=== PATIENT | female | born 1965 | race Caucasian/White ===

== ENCOUNTER 2020-09-11 09:29 | Outpatient (REF) | payer OTHER, SELFPAY ==
[2020-09-11 11:44] LABS: Estimated Average Glucose 220 mg/dL; Hemoglobin A1c % 9.3 %
== END 2020-09-11 09:30 | disposition home or self-care (01) ==
LOC: HO.MANLR 09:29
PROVIDERS: PCP Internal Medicine; Visit Provider Internal Medicine
DX: E11.9 Type 2 diabetes mellitus without complications (principal)
CPT/HCPCS: 36415; 83036

== ENCOUNTER 2020-11-17 08:18 | Outpatient (REF) | payer OTHER, SELFPAY ==
[2020-11-17 12:36] LABS: Estimated Average Glucose 166 mg/dL; Hemoglobin A1c % 7.4 %
== END 2020-11-17 08:19 | disposition home or self-care (01) ==
LOC: HO.MANLDS 08:18
PROVIDERS: PCP Internal Medicine; Visit Provider Internal Medicine
DX: E11.9 Type 2 diabetes mellitus without complications (principal)
CPT/HCPCS: 36415; 83036

== ENCOUNTER 2021-02-19 17:09 | Outpatient (REF) | payer OTHER, SELFPAY ==
--- NOTE | ~2021-02-19 | XR_ITS ---
EXAMINATION: RIGHT TIBIA AND FIBULA AND RIGHT KNEE. CLINICAL INFORMATION: Injury. COMPARISON: None TECHNIQUE: 2 views right tibia and fibula and 3 views right knee. FINDINGS: Right tibia and fibula: There is an old healed mid fibular fracture. A solitary screw stabilizing a healed medial malleolar fracture. No acute fracture or bony abnormality seen involving the right tibia and fibula. Right knee: The medial and lateral compartment joint space is normal. No loose bodies or bony erosive changes seen. There is mild loss of patellar femoral compartment joint space Irregular patellar articulating surface. No loose body seen. There is moderate prepatellar and infrapatellar superficial soft tissue swelling. XR/XR knee RT 3V IMPRESSION: Moderate prepatellar and infrapatellar superficial soft tissue swelling. No abnormal joint effusion seen. There is no acute fracture or dislocation.
--- NOTE | ~2021-02-19 | XR_ITS ---
EXAMINATION: RIGHT TIBIA AND FIBULA AND RIGHT KNEE. CLINICAL INFORMATION: Injury. COMPARISON: None TECHNIQUE: 2 views right tibia and fibula and 3 views right knee. FINDINGS: Right tibia and fibula: There is an old healed mid fibular fracture. A solitary screw stabilizing a healed medial malleolar fracture. No acute fracture or bony abnormality seen involving the right tibia and fibula. Right knee: The medial and lateral compartment joint space is normal. No loose bodies or bony erosive changes seen. There is mild loss of patellar femoral compartment joint space Irregular patellar articulating surface. No loose body seen. There is moderate prepatellar and infrapatellar superficial soft tissue swelling. XR/XR tibia fibula RT 2V IMPRESSION: Moderate prepatellar and infrapatellar superficial soft tissue swelling. No abnormal joint effusion seen. There is no acute fracture or dislocation.
== END 2021-02-19 17:10 | disposition home or self-care (01) ==
LOC: HO.XRAY 17:09
PROVIDERS: PCP Internal Medicine; Visit Provider Physician Assistant
DX: M25.561 Pain in right knee (principal); S89.91XA Unspecified injury of right lower leg, initial encounter
CPT/HCPCS: 73562; 73590

== ENCOUNTER 2021-02-28 08:41 | Outpatient (REF) | payer OTHER, SELFPAY ==
[2021-02-28 11:31] LABS: Estimated Average Glucose 186 mg/dL; Hemoglobin A1c % 8.1 %
== END 2021-02-28 08:42 | disposition home or self-care (01) ==
LOC: HO.MANLDS 08:41
PROVIDERS: PCP Internal Medicine; Visit Provider Internal Medicine
DX: E11.9 Type 2 diabetes mellitus without complications (principal)
CPT/HCPCS: 36415; 83036

== ENCOUNTER 2021-06-20 15:53 | Outpatient (REF) | payer OTHER, SELFPAY ==
[2021-06-20 19:48] LABS: Estimated Average Glucose 186 mg/dL; Hemoglobin A1c % 8.1 %
== END 2021-06-20 15:54 | disposition home or self-care (01) ==
LOC: HO.MANLDS 15:53
PROVIDERS: PCP Internal Medicine; Visit Provider Internal Medicine
DX: E11.9 Type 2 diabetes mellitus without complications (principal)
CPT/HCPCS: 36415; 83036

== ENCOUNTER → 2021-10-08 12:14 | Outpatient (BNVA) | payer OTHER, SELFPAY | PROVIDERS: PCP Internal Medicine; Visit Provider Physician Assistant | DX: Z12.11 Encounter for screening for malignant neoplasm of colon (principal); E66.3 Overweight; Z86.010 Personal history of colon polyps; Z79.899 Other long term (current) drug therapy | CPT/HCPCS: 99202 ==

== ENCOUNTER 2021-12-24 12:26 | Day surgery (SDC) | payer OTHER, SELFPAY ==
--- NOTE | 2021-12-24 12:32 | MHC.SHP ---
Pre-Procedural Eval Section A Date of Service: 12/24/21 The patient is an INPATIENT: No The History & Physical has been completed within 30 days and I have reviewed it.: No Section B Chief Complaint: screening Details of Present Illness: Colon cancer screening, history of colon polyps Relevant Family History (Specify if Yes): No Relevant Social History: None Present Medications: see Short Stay Collaborative assessment Medical History: Significant History (Diabetes mellitus, hypertension, depression, HX of PCOS) History of Previous Operations: Relevant previous surgery/procedure and date(s) (History of ankle surgery Hx of colonoscopy, Hx of nephrolithotomy with removal of calculi) Allergies: Allergies Allergy/AdvReac Type Severity Reaction Status Date / Time No Known Allergies Allergy Verified 12/18/21 14:10 [No Known Allergies*] Review of Systems Sugical H&P ROS: Negative: Constitution, Cardiovascular, Respiratory and Gastrointestinal Exam Surgical H&P Exam: Normal: Heart, Normal: Lungs, Normal: Extremities and Normal: Abdomen Plan Diagnosis/Plan: Unchanged I have reviewed the history and physical and performed a pertinent physical examination on my patient. No changes have occurred unless specified.
--- NOTE | 2021-12-24 12:35 | W.PM.OPN ---
Operative Note Operative Note Date of Service: 12/24/21 Narrative: Pre-op diagnosis: Colon cancer screening, history of colon polyps Post-op diagnosis:?other (Diverticulosis, hemorrhoids) Procedure: COLONOSCOPY TILL CECUM WITH BIOPSIES Consent: Indications for the procedure and potential complications of bleeding, perforation, and missed diagnosis were discussed with the patient and informed consent was obtained. Pt elected to have the procedure without anesthesia or conscious sedation. Instrument: Olympus PCF H 190 L variable stiffness pediatric colonoscope Monitoring: Vital signs and clinical assessment, intermittent blood pressure monitoring, continuous EKG monitoring, Pulse oximetry and Carbon Dioxide monitoring were done throughout the procedure. Colon withdrawl time was 26 minutes. Procedure: The patient was placed in the left lateral decubitis position. After a digital rectal examination of the ano-rectum, the video colonoscope was inserted into the rectum and advanced through the colon to the cecum. The colonoscope was slowly withdrawn in a retrograde panoramic fashion and the colon mucosa was carefully examined including a retroflexed view of the rectum. Findings and interventions are described below. Procedure Difficulty:? LLQ pressure applied to intubate the cecum Findings: Terminal Ileum: Not evaluated Cecum:? Partially evaluated due to suboptimal prep Ascending Colon:? Partially evaluated due to suboptimal prep Transverse Colon:? Normal Descending Colon:? Moderate diverticulosis Sigmoid Colon:? Moderate diverticulosis Rectum:? Normal Ano-rectum:? Small internal hemorrhoids Colon preparation:? Good after copious irrigation and fair to poor in the cecum and right colon due to undigested vegetable matter. Impression and Post Procedure Diagnosis: Colonoscopy Findings: No polyps were detected. Random biopsies were obtained from the left colon to check for microscopic colitis. Moderate diverticulosis seen in the left colon Small hemorrhoids on retroflexed exam. Plan: Await pathology results Patient has an appointment on 01/07/22 in the GI Clinic with BOYD Myrick. Repeat Colonoscopy interval based on path results - in 3 years due to suboptimal prep in the right colon and hx of colon polyps on previous colonoscopy at [facility] [place]. For future colonoscopies - advise 2 day prep or two Bisacodyl tablets daily starting 5 days prior to her colonoscopy appt Above findings were reviewed with the patient and diverticulosis handouts was given in the discharge area Surgeon: Analilia Ang MD Anesthesia:?none (pt elected to have the procedure performed without MAC or conscious sedation) Was an All Around Patternmaker used for this Procedure?:?Yes All Around Patternmaker:?Chelsie Ramos Estimated blood loss (mL):?0 Pathology:?other (A. left colon bxs, R/O microscopic colitis) Condition:?stable Disposition:?PACU
[2021-12-24 12:56] VITALS: BP 140/72; PULSE 78; RESP 20; TEMP 36.8; O2SAT 96; BMI 38.9
[2021-12-24 13:13] VITALS: BP 139/71; PULSE 77; RESP 16; O2SAT 98
[2021-12-24 13:24] LABS: Glucose, Whole Blood 222 mg/dL (60-115)
[2021-12-24 13:56] VITALS: BP 164/80; PULSE 84; RESP 16; O2SAT 100
[2021-12-24 14:02] VITALS: BP 133/82; PULSE 73; RESP 16; TEMP 36.8; O2SAT 99
== END 2021-12-24 14:25 | disposition home or self-care (01) ==
PROVIDERS: PCP Internal Medicine; Visit Provider Internal Medicine Gastroenterology
PROC: 0DJD8ZZ Inspection of Lower Intestinal Tract, Via Natural or Artificial Opening Endoscopic (ICD-10-PCS; CPT 45378; principal; 2021-12-24 13:30)
DX: Z12.11 Encounter for screening for malignant neoplasm of colon (principal); Z86.010 Personal history of colon polyps; K57.30 Diverticulosis of large intestine without perforation or abscess without bleeding; K64.8 Other hemorrhoids; G47.30 Sleep apnea, unspecified; J45.909 Unspecified asthma, uncomplicated; E11.9 Type 2 diabetes mellitus without complications; Z79.4 Long term (current) use of insulin; Z79.899 Other long term (current) drug therapy; Z87.442 Personal history of urinary calculi
CPT/HCPCS: 45380; 82947; 88305

== ENCOUNTER 2022-03-04 10:51 | Outpatient (REF) | payer OTHER, SELFPAY ==
[2022-03-04 13:52] LABS: MANUAL DIFF FLAG NO
[2022-03-04 13:59] LABS: Basophils Percent Auto 0.6 % (0-2); Eosinophils Absolute Auto 0.2 X10*3/uL (0.0-0.4); Eosinophils Percent Auto 3.2 % (0-4); Hematocrit 41.3 % (37.0-47.0); Hemoglobin 13.3 g/dl (12.0-16.0); Imm Gran Abs Auto 0.02 X10*3/uL (0.00-0.03); Imm Gran Pct Auto 0.3 % (0.0-0.4); Lymphocytes Absolute Auto 1.8 X10*3/uL (1.2-4.9); Lymphocytes Percent Auto 26.6 % (20-40); Mean Corpuscular HGB Conc 32.2 g/dl (31.0-35.0); Mean Corpuscular Hemoglobin 28.7 pg (27.0-33.0); Mean Platelet Volume 10.2 fL (9.4-12.3); Monocytes Absolute Auto 0.7 X10*3/uL (0.1-1.2); Monocytes Percent Auto 10.2 % (2-11); Neutrophils Absolute Auto 4.1 x10*3/uL (2.0-8.3); Neutrophils Percent Auto 59.1 % (45-73); Platelet Count 290 X10*3/uL (160-400); Red Blood Count 4.64 X10*6/uL (4.20-5.50); Red Cell Distribution Width 12.8 % (11.0-16.0); White Blood Count 6.9 X10*3/uL (4.8-10.8)
[2022-03-04 14:13] LABS: Estimated Average Glucose 232 mg/dL; Hemoglobin A1c % 9.7 %
[2022-03-04 14:17] LABS: Alanine Aminotransferase 19 U/L (0-31); Albumin Level 4.2 g/dL (3.5-5.0); Alkaline Phosphatase 121 U/L (39-117); Anion Gap 15 (12-20); Aspartate Amino Transferase 16 U/L (5-31); Bilirubin Total 0.4 mg/dL (0.0-1.0); Blood Urea Nitrogen 14 mg/dL (9-16); Calcium 9.3 mg/dL (8.4-10.2); Carbon Dioxide 28 mmol/L (22-29); Chloride 105 mmol/L (96-108); Cholesterol 170 mg/dL; Estimated Glomerular Filt Rate > 60; Glucose Random 176 mg/dL (60-115); HDL Cholesterol 58 mg/dL; LDL Cholesterol Calculated 97 mg/dl; Potassium 4.3 mmol/L (3.3-5.1); Sodium 144 mmol/L (135-145); Total Protein 7.1 g/dL (6.5-8.0); Triglycerides 77 mg/dL
[2022-03-04 14:40] LABS: Vitamin D 25-OH Total 66.4 ng/mL (>30)
[2022-03-04 17:24] LABS: Vitamin B12 762 pg/mL (200-900)
== END 2022-03-04 10:52 | disposition home or self-care (01) ==
LOC: HO.MANLDS 10:51
PROVIDERS: Visit Provider Internal Medicine
DX: I10 Essential (primary) hypertension (principal); E11.65 Type 2 diabetes mellitus with hyperglycemia
CPT/HCPCS: 36415; 80053; 80061; 82306; 82607; 83036; 85025

== ENCOUNTER 2022-09-30 08:29 | Outpatient (REF) | payer OTHER, SELFPAY ==
[2022-09-30 11:29] LABS: Estimated Average Glucose 189 mg/dL; Hemoglobin A1c % 8.2 %
== END 2022-09-30 08:30 | disposition home or self-care (01) ==
LOC: HO.MANLDS 08:29
PROVIDERS: Visit Provider Internal Medicine
DX: E11.65 Type 2 diabetes mellitus with hyperglycemia (principal)
CPT/HCPCS: 36415; 83036

== ENCOUNTER 2023-01-06 09:18 | Outpatient (REF) | payer OTHER, SELFPAY ==
[2023-01-06 12:18] LABS: Estimated Average Glucose 226 mg/dL; Hemoglobin A1c % 9.5 %
== END 2023-01-06 09:19 | disposition home or self-care (01) ==
LOC: HO.MANLDS 09:18
PROVIDERS: Visit Provider Internal Medicine
DX: E11.65 Type 2 diabetes mellitus with hyperglycemia (principal)
CPT/HCPCS: 36415; 83036

== ENCOUNTER 2023-01-21 08:58 | Outpatient (REF) | payer OTHER, SELFPAY ==
--- NOTE | ~2023-01-21 | MM_ITS ---
EXAMINATION: MM SCREENING DIGITAL BREAST TOMOSYNTHESIS, BILATERAL CLINICAL INFORMATION: Screening. Asymptomatic. The lifetime risk of breast cancer based on the Tyrer-Cuzick Model is 10.2%. COMPARISON: Mammography: This study is compared with only mammogram dating back to August 2010. TECHNIQUE: Digital breast tomosynthesis is performed in both the craniocaudal and mediolateral oblique views along with computer-aided detection (CAD). Synthesized 2D images are generated from the tomosynthesis. FINDINGS: There are scattered areas of fibroglandular density (ACR BI-RADS breast composition Category b). There are no significant masses, abnormal calcifications, or other abnormalities. MM/MM tomosynthesis screening BI IMPRESSION: No mammographic evidence of malignancy. ASSESSMENT: BI-RADS BI-RADS 1 - Negative RECOMMENDATION: Routine annual mammography screening. 1 year F/U This examination should not preclude the clinical evaluation of a suspicious palpable abnormality. This patient's information was entered into a reminder system with a target due date for their next mammogram.
== END 2023-01-21 08:59 | disposition home or self-care (01) ==
LOC: HO.MAMMO 08:58
PROVIDERS: PCP Internal Medicine; Visit Provider Internal Medicine
DX: Z12.31 Encounter for screening mammogram for malignant neoplasm of breast (principal)
CPT/HCPCS: 77063; 77067

== ENCOUNTER → 2023-01-21 09:15 | Outpatient (BNV) | payer OTHER, SELFPAY | PROVIDERS: PCP Internal Medicine; Visit Provider Radiology Diagnostic Radiology | DX: Z12.31 Encounter for screening mammogram for malignant neoplasm of breast (principal) | CPT/HCPCS: 77063; 77067 ==

== ENCOUNTER 2023-02-11 17:07 | Emergency (ER) | payer OTHER, SELFPAY ==
--- NOTE | 2023-02-11 18:14 | ED_ITS ---
HPI - General Adult General Chief complaint: Upper Respiratory Symptoms Stated complaint: covid + home test Time Seen by Provider: 02/11/23 18:26 Source: patient and family Mode of arrival: ambulatory Limitations: no limitations History of Present Illness HPI narrative: 57 y/o with history of DM, obesity, HTN, PCOS, depression who presents to the ER for evaluation of acute onset of fever 102, SOB, N/V, weakness and headache that started today. +home COVID test at home. Vaccinated x2. Using inhaler without relief. She took tylenol with improvement in her fever. She called her PCP who told her to come to the ER for evaluation of her breathing. MD complaint: SOB, COVID + Onset (ago): hour(s) Location: chest Radiation: non-radiation Severity: moderate Relieving factors: rest Exacerbating factors: movement Associated symptoms: cough, fever/chills, headaches, loss of appetite, malaise, nausea/vomiting, shortness of breath and weakness Treatments prior to arrival: other (albuterol MDI) Related Data Home Medications Medication Instructions Recorded Confirmed amlodipine 5 mg tablet 5 mg PO DAILY 10/08/21 12/24/21 atorvastatin 40 mg tablet 40 mg PO DAILY 10/08/21 12/18/21 cholecalciferol (vitamin D3) 50 50 mcg PO DAILY 10/08/21 12/18/21 mcg (2,000 unit) capsule duloxetine 60 mg capsule,delayed 60 mg PO BID 10/08/21 12/18/21 release (Cymbalta) insulin degludec 100 unit/mL 15 unit subcut BEDTIME 10/08/21 12/24/21 subcutaneous solution (Tresiba U-100 Insulin) lisinopril 40 mg tablet 40 mg PO DAILY 10/08/21 12/24/21 metformin 750 mg tablet,extended 750 mg PO BID 10/08/21 12/24/21 release 24 hr montelukast 10 mg tablet 10 mg PO DAILY 10/08/21 12/18/21 Previous Rx's Medication Instructions Recorded benzonatate 100 mg capsule 100 mg PO TID PRN cough #30 caps 02/11/23 hydrocodone-homatropine 5 mg-1.5 5 ml PO Q4-6H PRN cough #60 mL 02/11/23 mg/5 mL (5 mL) oral syrup (Hycodan) ondansetron 4 mg disintegrating 4 mg PO Q8H PRN nausea and 02/11/23 tablet vomiting #10 tabs prednisone 20 mg tablet 40 mg PO DAILY #10 tabs 02/11/23 Allergies Allergy/AdvReac Type Severity Reaction Status Date / Time No Known Allergies Allergy Verified 12/18/21 14:10 [No Known Allergies*] Review of Systems Review of Systems: Yes all other systems are reviewed and are negative [facility] Past Medical History Medical History (Updated 02/11/23 @ 18:23 by BOYD Martinez) Asthma Depression Diabetes Elevated cholesterol HTN (hypertension) Hx of nephrolithotomy with removal of calculi Sleep apnea Surgical History (Updated 12/26/21 @ 11:52 by Galilea Madrigal) History of ankle surgery Hx of colonoscopy Family History Family History Father Diabetes Afib Social History Social History Household Members: Spouse Alcohol intake: never Patient Tobacco Use Status: Never used Tobacco Physical Exam ED Vital Signs: Vital Signs - 24 hr 02/11/23 18:16 Temperature 98.9 F Pulse Rate 85 Respiratory Rate 18 Blood Pressure 148/66 H BMI result Body Mass Index 40.2 Appearance: Alert. Oriented X3. No acute distress. Head: normocephalic, atraumatic. Neck: Normal inspection. Neck supple. CVS: Normal heart rate and rhythm. Pulses normal. Respiratory: No respiratory distress. Breath sounds normal. Dry cough noted. Skin: Skin warm and dry. Normal skin color. Normal skin turgor. No rashes. Extremities: No lower extremity edema. No joint swelling. No calf tenderness Neuro/psych: Oriented X 3. Grossly normal, nonfocal. Normal speech and cognition. Medical Decision Making Medical Decision Making MDM Narrative: 57 yo female with history of DM on insulin, asthma, MENDY, HTN, PCOS who presents to the ER for evaluation of SOB, N/V, cough, weakness, headache and body aches that started today. VS are stable and lungs are clear. She reports hx inflammatory asthma and does not get wheezy when ill. She is on multiple anti-hypertensive meds that could potentially interact with paxlovid - will defer prescribing this to her PCP. she already has N/V At this time comfortable w/ discharge home with prednisone, antitussives and supportive care. Patient agrees w/ plan and strict return precautions were discussed. Differential Diagnosis Differential Diagnoses: The differential diagnosis associated with the presentation includes strep, covid, flu, rsv, other viral syndrome, bronchitis, pneumonia, doubt PE Independent Historian Clinical information obtained from an independent historian. History obtained from or confirmed by: Spouse External Record Review External record reviewed: Prior outpatient labs and Prior outpatient radiology Tests considered The following testing was considered but not selected: considered CXR and lab workup however would not change management lead. Prescription Management I considered prescription management with: Antiviral and Other (prednisone and antitussives) Chronic Conditions Patient?s care impacted by: Diabetes, Hypertension and Other (obesity) Critical Care Time Critical Care Time Critical Care Time: No Discharge Plan Discharge Clinical Impression: COVID-19 Patient Disposition: Home, Self-Care Instructions: COVID-19 (Coronavirus Disease 2019) (ED) Additional Instructions: You were found to be COVID-19 POSITIVE today. Your exam and oxygen levels were normal. Rest. Drink plenty of fluids. Do not go out in public while you are not feeling well Take over the counter cold/flu medications as needed for your symptoms. Take the prescribed steroid medications for your lungs and the cough medication as directed. Take Tylenol and/or Motrin as needed for fevers and body aches. Follow up with your doctor this week to further discuss pros and cons of Paxlovid. If you shortness of breath worsens, if you develop difficulty breathing or any other concerning symptom come back to the ER for further evaluation. Prescriptions: New prednisone 20 mg tablet 40 mg PO DAILY Qty: 10 0RF ondansetron 4 mg tablet,disintegrating 4 mg PO Q8H PRN (Reason: nausea and vomiting) Qty: 10 0RF benzonatate 100 mg capsule 100 mg PO TID PRN (Reason: cough) Qty: 30 0RF hydrocodone-homatropine [Hycodan] 5-1.5 mg/5 mL (5 mL) syrup 5 ml PO Q4-6H PRN (Reason: cough) Qty: 60 0RF Rx Instructions: Partial Fill upon patient request. No Action cholecalciferol (vitamin D3) 50 mcg (2,000 unit) capsule 50 mcg PO DAILY metformin 750 mg tablet extended release 24 hr 750 mg PO BID lisinopril 40 mg tablet 40 mg PO DAILY Tresiba U-100 Insulin 100 unit/mL solution 15 unit subcut BEDTIME Patient Comments: half dose taken montelukast 10 mg tablet 10 mg PO DAILY atorvastatin 40 mg tablet 40 mg PO DAILY amlodipine 5 mg tablet 5 mg PO DAILY duloxetine [Cymbalta] 60 mg capsule,delayed release(DR/EC) 60 mg PO BID Referrals: Steve Price MD [Primary Care Provider] - Stand Alone Forms: Work/School Release
[2023-02-11 18:16] VITALS: BP 148/66; PULSE 85; RESP 18; TEMP 37.2; BMI 40.2
[2023-02-11 18:29] LABS: Glucose, Whole Blood 133 mg/dL (60-115)
== END 2023-02-11 18:33 | disposition home or self-care (01) ==
PROVIDERS: Emergency Provider Internal Medicine; PCP Internal Medicine
DX: U07.1 COVID-19 (principal); R50.9 Fever, unspecified; E11.9 Type 2 diabetes mellitus without complications; I10 Essential (primary) hypertension; E78.5 Hyperlipidemia, unspecified; Z79.899 Other long term (current) drug therapy; Z79.84 Long term (current) use of oral hypoglycemic drugs
CPT/HCPCS: 82947; 99282; 99283

== ENCOUNTER 2023-04-12 20:32 | Emergency (ER) | payer OTHER, SELFPAY ==
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
[2023-04-12 20:37] VITALS: BP 186/82; PULSE 82; RESP 17; TEMP 37; O2SAT 97; BMI 40.7
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
[2023-04-12 21:32] VITALS: BP 153/67; PULSE 82; RESP 16; TEMP 36.8; O2SAT 97
[2023-04-12] MEDS: Morphine Sulfate Immed Release 15 MG TABLET PO (23:01)
== END 2023-04-12 23:22 | disposition home or self-care (01) ==
PROVIDERS: Emergency Provider Emergency Medicine; PCP Internal Medicine
DX: S70.02XA Contusion of left hip, initial encounter (principal); S70.01XA Contusion of right hip, initial encounter; V03.00XA Pedestrian on foot injured in collision with car, pick-up truck or van in nontraffic accident, initial encounter; Y93.89 Activity, other specified; Y92.481 Parking lot as the place of occurrence of the external cause; Y99.9 Unspecified external cause status
CPT/HCPCS: 73502; 99283; 99284

== ENCOUNTER → 2023-04-16 07:00 | Outpatient (BNV) | payer OTHER, SELFPAY | PROVIDERS: Admitting Provider Student in an Organized Health Care Education/Training Program; Emergency Provider Emergency Medicine; PCP Internal Medicine; Visit Provider Internal Medicine | DX: I34.81 Nonrheumatic mitral (valve) annulus calcification (principal); I35.8 Other nonrheumatic aortic valve disorders | CPT/HCPCS: 93306 ==

== ENCOUNTER 2023-04-16 08:08 | Observation (INO) | payer OTHER, SELFPAY ==
[2023-04-16] VITALS (7 sets, daily range): BP systolic 133–164; BP diastolic 64–84; PULSE 62–85; RESP 16–20; TEMP 36.3–37.1; O2SAT 94–99; BMI 40.2
--- NOTE | ~2023-04-16 | XR_ITS ---
EXAMINATION: XR CHEST CLINICAL INFORMATION: Chest pain COMPARISON: None available. TECHNIQUE: Frontal view of the chest was obtained. FINDINGS: Lungs clear. Heart and pulmonary vessels normal. No congestive change. There is degenerative change in both shoulder joints. clinic receptionist leads are present. XR/XR chest 1V IMPRESSION: No active disease.
--- NOTE | 2023-04-16 07:00 | CA_ITS ---
Transthoracic Echocardiogram Patient (Last, First, Middle): Rosa M Garcia J Gender: Female Date of : 1965 Age: 57 Procedure Date: 04/16/2023 Procedure Type: Transthoracic Echocardiogram Location: ER Height: 157.48 cm Weight: 99.79 kg BSA: 1.99 m2 Heart Rate: bpm BP: 160 / 76 mmHg [place]: KIRT Referring MD: Steve Fried MD Symptoms: elevated tropi Study Quality: Adequate with contrast ECG Rhythm: Sinus Conclusions: - The left ventricular systolic function is hyperdynamic. The visually estimated ejection fraction is >70%. - There is moderately increased left ventricular wall thickness. - Evidence suggests grade II (moderate) diastolic dysfunction. - There is moderate mitral annular calcification. - There is mild calcification of the aortic valve. Findings Procedure Information Contrast agent, definity, is being given per protocol without apparent complications. Left Ventricle Normal left ventricular cavity size. There is moderately increased left ventricular wall thickness. The left ventricular systolic function is hyperdynamic. The visually estimated ejection fraction is >70%. There is no evidence of regional wall motion abnormalities. Evidence suggests grade II (moderate) diastolic dysfunction. Right Ventricle Mildly increased right ventricular cavity size. There is normal right ventricular systolic function. Atria The left atrium is mildly dilated. The right atrium is normal in size. Aortic Valve There is a normal trileaflet aortic valve. There is mild calcification of the aortic valve. There is no aortic valve stenosis. There is no aortic valve regurgitation. Mitral Valve There is moderate mitral annular calcification. There is no mitral valve regurgitation. There is no mitral valve stenosis. Pulmonic Valve The pulmonic valve is likely normal. Tricuspid Valve Normal tricuspid valve structure. There is trace tricuspid valve regurgitation. There is no evidence of pulmonary hypertension. Great Vessels The asc aorta is normal in size. Venous The inferior vena cava is normal in size and collapses greater than 50% with inspiration. Pericardium/Pleural There is no evidence of pericardial effusion. Prior Study Comparison No prior study available for comparison. Measurements 2D Linear Measurements IVSd: 1.30 0.6-0.9/0.6-1.0 cm LVIDd: 3.95 3.9-5.3/4.2-5.9 cm LVIDd Index: 1.98 2.4-3.2/2.2-3.1 cm/m2 LVIDs: 2.12 2.0-3.6 cm LVPWd: 1.22 0.7-1.1 cm LA Diam: 3.80 2.7-3.8/3.0-4.0 cm LAIDs Index: 1.91 1.5-2.3 cm/m2 LV Mass: 217.58 67-162/88-224 g LV Mass Index: 109.34 43-95/49-115 g/m2 LVOT Diam: 1.80 3.0+(-)1.3 cm 2D Systolic Function EF 4C: 79.30 >55% EF 2C: 68.00 >55% EF BiP: 75.00 >55% Mitral Valve MV VTI: 0.54 MV Pk Andreas: 1.78 MV Mn Andreas: 1.03 MV Pk Grad: 13.00 MV Mn Grad: 5.00 MV Pk E: 1.67 MV PK A: 1.21 MV Decel Time: 247.00 E/A: 1.40 E'Lateral: 6.64 E'Medial: 6.53 E/E' Med: 25.60 E/E' Lat: 25.20 PHT: 72.00 MVA PHT: 3.06 MVA Continuity: 1.54 Decel [place]: 6.74 Aortic Valve AoV Pk Andreas: 1.87 AoV Mn Andreas: 1.33 AoV VTI: 0.43 AoV Pk Grad: 14.00 Aov Mn Grad: 8.00 GERHARD Cont.VTI: 1.93 LVOT LVOT Pk Andreas: 1.45 LVOT Mn Andreas: 0.98 LVOT VTI: 0.33 LVOT Pk Grad: 8.00 LVOT Mn Grad: 5.00 LVOT Diam: 1.80 LVOT Area: 2.54 Diastolic Function MV Pk E: 1.67 MV Pk A: 1.21 E/A: 1.40 E'Medial: 6.53 E/E' Med: 25.60 E' Laterial: 6.64 E/E' Lat: 25.20 Right Ventricle TAPSE (mm): 29.10 TVS' Andreas: 16.40 Tricuspid Valve TR Pk Andreas: 2.31 TR Pk Grad: 21.00 RA Press: 3.00 RVSP: 24.00 Great Vessels Aorta Sinus of Valsalva: 3.06 2.0-3.[address] [place]: 2.51 1.7-3.4 cm Ao Asc: 3.30 2.1-3.4 cm Updated in Other Vendor System with Status of Final Hi Tam MD electronically signed on 04/16/2023 2:56:57 PM with status of Final
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
--- NOTE | 2023-04-16 09:21 | ECG_ITS ---
Test Reason : chest pain Blood Pressure : / mmHG Vent. Rate : 076 BPM Atrial Rate : 076 BPM P-R Int : 140 ms QRS Dur : 086 ms QT Int : 404 ms P-R-T Axes : -10 041 021 degrees QTc Int : 454 ms Normal sinus rhythm Normal ECG When compared with ECG of 17-JUN-2012 16:55, No significant change was found Referred By: Steve Fried Electronically Signed By:BAUTISTA NIELSEN
[2023-04-16 09:41] LABS: MANUAL DIFF FLAG NO
[2023-04-16 09:43] LABS: Basophils Percent Auto 0.5 % (0-2); Eosinophils Absolute Auto 0.1 X10*3/uL (0.0-0.4); Eosinophils Percent Auto 0.8 % (0-4); Hematocrit 43.9 % (37.0-47.0); Hemoglobin 14.5 g/dl (12.0-16.0); Imm Gran Abs Auto 0.02 X10*3/uL (0.00-0.03); Imm Gran Pct Auto 0.2 % (0.0-0.4); Lymphocytes Absolute Auto 1.4 X10*3/uL (1.2-4.9); Lymphocytes Percent Auto 16.1 % (20-40); Mean Corpuscular Hemoglobin 28.4 pg (27.0-33.0); Mean Corpuscular Volume 85.9 fL (80.0-98.0); Mean Platelet Volume 9.2 fL (9.4-12.3); Monocytes Absolute Auto 0.5 X10*3/uL (0.1-1.2); Monocytes Percent Auto 6.2 % (2-11); Neutrophils Absolute Auto 6.4 x10*3/uL (2.0-8.3); Neutrophils Percent Auto 76.2 % (45-73); Platelet Count 306 X10*3/uL (160-400); Red Blood Count 5.11 X10*6/uL (4.20-5.50); Red Cell Distribution Width 12.8 % (11.0-16.0); White Blood Count 8.4 X10*3/uL (4.8-10.8)
[2023-04-16 10:01] LABS: Alanine Aminotransferase 15 U/L (0-31); Albumin Level 4.1 g/dL (3.5-5.0); Alkaline Phosphatase 102 U/L (39-117); Anion Gap 13 (12-20); Aspartate Amino Transferase 16 U/L (5-31); Bilirubin Total 0.3 mg/dL (0.0-1.0); Blood Urea Nitrogen 13 mg/dL (9-16); Calcium 9.7 mg/dL (8.4-10.2); Carbon Dioxide 28 mmol/L (22-29); Chloride 105 mmol/L (96-108); Creatinine Clr Calc Pharmacy 115.6; Estimated Glomerular Filt Rate > 60; Glucose Random 93 mg/dL (60-115); Potassium 3.7 mmol/L (3.3-5.1); Sodium 142 mmol/L (135-145); Total Protein 7.6 g/dL (6.5-8.0)
[2023-04-16 10:13] LABS: Troponin-I High Sensitivity 71.4 ng/L (<3.5-17.0)
[2023-04-16 10:27] LABS: Appearance Urine Clear; Color Urine Yellow; Glucose Urine UA Negative (Negative); Leukocyte Esterase Urine Moderate (2+) (Negative); Nitrite Urine Negative (Negative); UMIC TRIGGER UACC YES; Urine Blood Negative (Negative); Urine Ketones Negative (Negative); Urine Protein Negative (Neg-Trace)
[2023-04-16 10:29] LABS: Bacteria Urine 1+ (None Seen); Hyaline Casts Urine 0-2 /LPF (0-2); RBC Urine 0-2 /HPF (0-2); Squamous Epithelial Cell Urine 0-2 /HPF (0-2); UACC Culture Trigger YES
[2023-04-16] MEDS: Aspirin 81 MG TAB.CHEW 324 MG PO (10:38)
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
--- NOTE | 2023-04-16 13:22 | PC.NURSE ---
us in room with pt
[2023-04-16] MEDS: Enoxaparin Sodium 40 MG/0.4 ML SYRINGE SUBCUT (14:06)
[2023-04-16 15:05] LABS: Troponin-I High Sensitivity 67.7 ng/L (<3.5-17.0)
[2023-04-16] MEDS: amLODIPine Besylate 5 MG TABLET PO (16:15)
[2023-04-16] MEDS: 0.9 % Sodium Chloride Flush 3 ML SYRINGE IVFLUSH (16:15)
[2023-04-16] MEDS: lisinopriL 40 MG TABLET PO (16:15)
[2023-04-16 16:21] LABS: Glucose, Whole Blood 146 mg/dL (60-115)
[2023-04-16 20:10] LABS: Glucose, Whole Blood 301 mg/dL (60-115)
[2023-04-16] MEDS: DULoxetine HCl 60 MG CAPSULE.DR PO (21:43)
[2023-04-16] MEDS: metFORMIN HCl ER 750 MG TAB.ER.24H PO (21:43)
[2023-04-16] MEDS: Insulin Lispro 100 UNIT/ML 3 ML VIAL SUBCUT (21:43)
[2023-04-16] MEDS: Insulin Glargine,Hum.rec.anlog 100 UNIT/ML 10 ML VIAL 40 UNIT SUBCUT (21:44)
[2023-04-17 03:54] VITALS: BP 138/75; PULSE 89; RESP 18; TEMP 36.9; O2SAT 95
[2023-04-17] MEDS: Acetaminophen 325 MG TABLET 650 MG PO (03:58)
[2023-04-17] MEDS: 0.9 % Sodium Chloride Flush 3 ML SYRINGE IVFLUSH ×2 (03:58→08:20)
[2023-04-17 08:00] VITALS: BP 141/86; PULSE 87; RESP 20; TEMP 36.5; O2SAT 97
[2023-04-17] MEDS: amLODIPine Besylate 5 MG TABLET PO (08:19)
[2023-04-17] MEDS: lisinopriL 40 MG TABLET PO (08:19)
[2023-04-17] MEDS: Cholecalciferol (Vitamin D3) 25 MCG TABLET 50 MCG PO (08:19)
[2023-04-17] MEDS: DULoxetine HCl 60 MG CAPSULE.DR PO (08:19)
[2023-04-17] MEDS: metFORMIN HCl ER 750 MG TAB.ER.24H PO (08:19)
[2023-04-17] MEDS: buPROPion HCl XL 300 MG TAB.ER.24H PO (08:19)
--- NOTE | 2023-04-17 09:44 | MHC.CM.PN ---
Myesha 04/17/23, Pt lives at her home with her , she does not have home health services at home, she is indep. uses a cpap. Her will transport home [place]. plan is home, self care. CM to follow and assist with dc.
--- NOTE | 2023-04-17 10:26 | PC.RT ---
Case management reported to us this am that pt was not put on cpap last night. There was no order placed by hospitalist for cpap order and Respiratory Dept was unaware of this. If there was an order place, then RT would have placed on patient overnight.
[2023-04-17 11:15] VITALS: BP 144/64; PULSE 75; RESP 20; TEMP 36.8; O2SAT 96
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
--- NOTE | 2023-04-17 11:57 | MHC.CM.PN ---
Pt is medically cleared for dc, she will return home with self care, her will pick her up.
== END 2023-04-17 13:53 | disposition home or self-care (01) ==
LOC: HO.ED 10:42 → HO.EDOVER 12:53 → HO.IMC 14:05
PROVIDERS: Admitting Provider Student in an Organized Health Care Education/Training Program; Emergency Provider Emergency Medicine; PCP Internal Medicine; Visit Provider Student in an Organized Health Care Education/Training Program
DX: R53.1 Weakness (principal); R74.8 Abnormal levels of other serum enzymes; R79.89 Other specified abnormal findings of blood chemistry; R07.9 Chest pain, unspecified; I10 Essential (primary) hypertension; E78.5 Hyperlipidemia, unspecified; E11.9 Type 2 diabetes mellitus without complications; Z79.4 Long term (current) use of insulin; J45.909 Unspecified asthma, uncomplicated; E66.09 Other obesity due to excess calories; Z68.41 Body mass index [BMI] 40.0-44.9, adult
CPT/HCPCS: 36415; 71045; 80053; 81001; 82550; 82947; 84484; 85025; 87086; 87088; 87186; 93005; 93306; 96372; 99222; 99284; 99285; J1650; Q9957

== ENCOUNTER → 2023-04-16 12:45 | Outpatient (BNV) | payer OTHER, SELFPAY | PROVIDERS: Admitting Provider Student in an Organized Health Care Education/Training Program; Emergency Provider Emergency Medicine; PCP Internal Medicine; Visit Provider Student in an Organized Health Care Education/Training Program | DX: R79.89 Other specified abnormal findings of blood chemistry (principal); R53.1 Weakness; R42 Dizziness and giddiness | CPT/HCPCS: 99222; 99238 ==

== ENCOUNTER 2023-04-22 10:39 | Outpatient (AMB) | payer OTHER, SELFPAY ==
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
[2023-04-22 10:42] VITALS: BP 120/66; PULSE 80; BMI 39.9
== END 2023-04-22 11:08 | disposition home or self-care (01) ==
PROVIDERS: PCP Internal Medicine; Visit Provider Internal Medicine
DX: R79.89 Other specified abnormal findings of blood chemistry (principal); I10 Essential (primary) hypertension; E11.9 Type 2 diabetes mellitus without complications; Z79.4 Long term (current) use of insulin; E66.01 Morbid (severe) obesity due to excess calories; Z68.39 Body mass index [BMI] 39.0-39.9, adult; G47.30 Sleep apnea, unspecified
CPT/HCPCS: 99204

== ENCOUNTER → 2023-04-22 10:39 | Outpatient (BNVA) | payer OTHER, SELFPAY | PROVIDERS: PCP Internal Medicine; Visit Provider Internal Medicine ==

== ENCOUNTER 2023-05-26 11:17 | Outpatient (REF) | payer OTHER, SELFPAY ==
[2023-05-26 14:06] LABS: Appearance Urine Clear; Color Urine Yellow; Glucose Urine UA Negative (Negative); Leukocyte Esterase Urine Small (1+) (Negative); Nitrite Urine Negative (Negative); PH 5.5 (5.0-9.0); Specific Gravity - Urine 1.015 (1.005-1.025); UMIC TRIGGER UACC YES; Urine Blood Negative (Negative); Urine Ketones Negative (Negative); Urine Protein Negative (Neg-Trace)
[2023-05-26 14:10] LABS: Bacteria Urine Trace (None Seen); Hyaline Casts Urine 0-2 /LPF (0-2); RBC Urine 0-2 /HPF (0-2); UACC Culture Trigger YES
== END 2023-05-26 11:18 | disposition home or self-care (01) ==
LOC: HO.MANLDS 11:17
PROVIDERS: Visit Provider Physician Assistant
DX: R30.9 Painful micturition, unspecified (principal)
CPT/HCPCS: 81001; 87086

== ENCOUNTER → 2023-06-16 09:35 | Outpatient (REF) | payer OTHER, SELFPAY ==
--- NOTE | ~2023-06-16 | NM_ITS ---
Exercise Myocardial perfusion study Indication: Precordial chest pain to evaluate for myocardial ischemia Technique: The patient was brought in for an exercise perfusion study on 06/27/2023. Patient performed exercise as per Kun protocol and was injected 40 mCi of sestamibi was given intravenously one target HR was achieved. Images were obtained using the SPECT gamma camera interlaced with the gating device. Images were obtained in supine position. Resting perfusion study was performed on 06/27/2023. Patient was administered 14 mCi of sestamibi intravenously at rest. Images were then obtained in supine position. Images obtained with and without CT attenuation. Total DLP 207 mGy-cm. Images were processed with the software and compared side to side in short axis, horizontal long axis and vertical long axis views. Findings: The stress perfusion study showed attenuated images show mildly reduced uptake in the lateral wall of the LV myocardium. Remainder of the LV myocardium is normally perfused. Remainder of the LV myocardium is normally perfused. There is bright uptake in the septum. Attenuated corrected images show normal uptake of radiotracer in all segments of LV myocardium.. The gated study shows normal LV systolic function with calculated LVEF of 74%. LV cavity is normal in size. The gated study shows normal systolic wall thickening and contraction of all segments. There is no transient ischemic dilation. Resting was performed on the low dose and the common statistics show moderately reduced counts. Resting study shows non attenuated images show mildly reduced uptake in the anterior wall that this could be related to intense subdiaphragmatic uptake interfering with basal inferior wall. Attenuated corrected images show absent uptake in the apex of the LV myocardium with mildly to moderately reduced uptake in the distal anterior. Gating at rest reveals normal systolic wall motion with ejection fraction at 74%. The findings are consistent with likely normal myocardial perfusion based on attenuated corrected images show normal uptake in the lateral wall.. NM/NM cardiolite stress test Impression: 1. Likely normal myocardial perfusion 2. Gated LVEF is 74% 3. Transient ischemic dilatation not present Stress EKG is suggestive of ischemia
--- NOTE | 2023-06-16 09:46 | CA_ITS ---
Acquisition Time: 2023-06-16 09:45:15 Total Exercise Time: 00:07:30 Test Indications: ELEVATED TROP Medications: SEE H Protocol: BOUBACAR Max HR: 144 BPM 87% of Pred: 164 BPM Max BP: 188/064 mmHG Max Work Load: 8.7 METS Exercie stress test exercise 7 min 30 sec of Boubacar protocol stage 4 decreased speed orf 3.2MPH achieving 86% MPHR, without anginal symptoms, without arrhythmias, with normotensive response exercise, with downsloping in leads 2, 3, aVF. Nuclear images pending. Test reviewed with Dr. Tam. Referred By: Hi Tam Overread By: Natasha Peres
== END ==
LOC: HO.CARD 09:35
PROVIDERS: PCP Internal Medicine; Visit Provider Internal Medicine
DX: R07.2 Precordial pain (principal); I25.10 Atherosclerotic heart disease of native coronary artery without angina pectoris
CPT/HCPCS: 78452; 93017; A9500

== ENCOUNTER → 2023-06-16 09:46 | Outpatient (BNV) | payer OTHER, SELFPAY | PROVIDERS: PCP Internal Medicine; Visit Provider Nurse Practitioner | DX: R07.2 Precordial pain (principal) | CPT/HCPCS: 78452; 93016; 93018 ==

== ENCOUNTER 2023-06-27 13:40 | Outpatient (AMB) | payer OTHER, SELFPAY ==
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
[2023-06-27 14:00] VITALS: BP 120/62; PULSE 95; BMI 39.7
== END 2023-06-27 14:41 | disposition home or self-care (01) ==
PROVIDERS: PCP Internal Medicine; Visit Provider Nurse Practitioner Family
DX: R79.89 Other specified abnormal findings of blood chemistry (principal); I10 Essential (primary) hypertension; E66.01 Morbid (severe) obesity due to excess calories; Z68.39 Body mass index [BMI] 39.0-39.9, adult
CPT/HCPCS: 99214

== ENCOUNTER → 2023-06-27 13:40 | Outpatient (BNVA) | payer OTHER, SELFPAY | PROVIDERS: PCP Internal Medicine; Visit Provider Nurse Practitioner Family ==

== ENCOUNTER 2023-06-30 10:44 | Emergency (ER) | payer OTHER, SELFPAY ==
--- NOTE | ~2023-06-30 | CT_ITS ---
EXAMINATION: CT ABDOMEN AND PELVIS WITHOUT CONTRAST CLINICAL INFORMATION: Right-sided flank pain. COMPARISON: 06/12/2009 TECHNIQUE: Multidetector volumetric imaging was performed from the superior aspect of the liver through the pubic symphysis. Sagittal and coronal reformatted images were obtained on the technologist's workstation. This CT examination was performed using dose optimization techniques as appropriate, variously including the following: *Automated exposure control *Adjustment of mA and/or kV according to patient size (this includes techniques or standardized protocols for targeted exams where dose is matched to indication/reason for exam; i.e. extremities or head) *Use of iterative reconstruction technique DLP: 745 mGy-cm FINDINGS: LUNG BASES: The visualized lung bases are unremarkable. LIVER, GALLBLADDER, AND BILIARY TREE: The noncontrast liver is normal in size and contour. No biliary ductal dilatation is present. The gallbladder is contracted. PANCREAS: No ductal dilatation. SPLEEN: Not enlarged. ADRENAL GLANDS: No adrenal mass. KIDNEYS AND URETERS: The kidneys are symmetric in size. 4.0 x 3.5 cm lower pole left renal cyst. No further imaging follow-up is needed. 4 mm nonobstructing calculus lower pole right kidney. No hydronephrosis. No perinephric stranding. BLADDER: Decompressed. GASTROINTESTINAL TRACT: No small bowel obstruction. Appendix is within normal limits. ABDOMINAL WALL: No significant hernia is appreciated. LYMPH NODES: No bulky lymphadenopathy. VASCULAR: Normal caliber abdominal aorta. PELVIC VISCERA: Unremarkable. OSSEOUS STRUCTURES: No destructive bone lesions. CT/CT abdomen pelvis wo IV con IMPRESSION: No acute abnormality in the abdomen or pelvis. 4 mm nonobstructing right renal calculus. No hydronephrosis.
[2023-06-30 11:14] VITALS: BP 164/68; PULSE 84; RESP 20; TEMP 36.9; O2SAT 94; BMI 39.8
--- NOTE | 2023-06-30 11:14 | ED.GENADULT ---
HPI - General Adult General Chief complaint: General Medical Stated complaint: r side pain Time Seen by Provider: 06/30/23 18:41 History of Present Illness HPI narrative: 57 y/o F patient; PMH T2DM, obesity, MENDY, HTN, PCOS, depression; presents from home reporting right flank pain, fever, and non-productive cough for the last several days. Reports associated nausea, NBNB vomiting, and diarrhea. 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 She is specifically concerned regarding a UTI or kidney stones. She otherwise denies: chest pain, SOB, abdominal pain, back pain. Related Data Home Medications Medication Instructions Recorded Confirmed atorvastatin 40 mg tablet 40 mg PO DAILY 10/08/21 06/27/23 cholecalciferol (vitamin D3) 50 50 mcg PO DAILY 10/08/21 06/27/23 mcg (2,000 unit) capsule duloxetine 60 mg capsule,delayed 60 mg PO BID 10/08/21 06/27/23 release (Cymbalta) insulin degludec 100 unit/mL 60 unit subcut BEDTIME 10/08/21 06/27/23 subcutaneous solution (Tresiba U-100 Insulin) lisinopril 40 mg tablet 40 mg PO DAILY 10/08/21 06/27/23 metformin 750 mg tablet,extended 750 mg PO BID 10/08/21 06/27/23 release 24 hr montelukast 10 mg tablet 10 mg PO DAILY 10/08/21 06/27/23 albuterol sulfate 90 mcg/actuation 2 puff inhalation Q6H PRN Wheezing 04/16/23 06/27/23 aerosol inhaler bupropion HCl 150 mg tablet,12 hr 150 mg PO BID 04/16/23 06/27/23 sustained-release fluticasone 250 mcg-salmeterol 50 1 ea inhalation BID 04/16/23 06/27/23 mcg/dose blistr powdr for inhalation (Advair Diskus) insulin aspart U-100 100 unit/mL 0 sliding scale dose subcut TIDWM 04/16/23 06/27/23 (3 mL) subcutaneous pen (Novolog FlexPen U-100 Insulin aspart) Previous Rx's Medication Instructions Recorded amlodipine 10 mg tablet 10 mg PO DAILY #30 tabs 04/17/23 Allergies Allergy/AdvReac Type Severity Reaction Status Date / Time No Known Allergies Allergy Verified 06/27/23 14:02 [No Known Allergies*] Review of Systems Review of Systems: Yes all other systems are reviewed and are negative COUNT INCLUDES THE [facility] Past Medical History Attestation statement: The following information was validated with the patient. Source: old records reviewed Medical History Depression Elevated cholesterol Diabetes HTN (hypertension) Sleep apnea Asthma Hx of nephrolithotomy with removal of calculi Surgical History History of ankle surgery Hx of colonoscopy Family History Family History Father Diabetes Afib Social History Social History Household Members: Spouse Household Members Other:: 2 Housing: House Alcohol intake: never Patient Tobacco Use Status: Never used Tobacco Smoked in Last 30 Days: No Use of substances other than those prescribed or required for medical reasons: No Advance Directives: No Advance Directives Information Provided: Yes service: No Physical Exam ED Vital Signs: Vital Signs - 24 hr 06/30/23 11:14 06/30/23 18:40 Temperature 98.4 F 98.6 F Pulse Rate 84 71 Respiratory Rate 20 18 Blood Pressure 164/68 H 121/41 L Pulse Oximetry 94 95 Oxygen Delivery Method Room Air Room Air BMI result Body Mass Index 39.8 Patient is afebrile, mildly hypertensive. Const General: cooperative and no acute distress [facility] Head: Yes atraumatic Eyes General: appearance normal, both eyes and all related structures Pupils: Equal, round and reactive pupils present EOM: EOMs intact bilaterally Neck Neck: Yes normal visual inspection, Yes full ROM, Yes supple and No tender Chest Chest palpation & inspection: normal inspection of the chest and normal palpation of entire chest wall Resp Effort & Inspection: normal respiratory effort, able to speak in complete sentences and no respiratory distress Auscultation: clear to auscultation bilaterally Cardio Rate: regular rate Rhythm: regular rhythm Peripheral pulses: Peripheral pulses 2+ throughout GI Inspection: Yes normal to inspection and No distended Palpation (GI): Soft to palpation, not firm, nontender, no guarding and not rigid Back/Spine/Pelvis Other: Mildly reproducible right superior iliac discomfort without overlying skin changes Neuro Cranial nerves: Yes Equal, round and reactive pupils present Course Course Course Narrative: This is an RME: Additional HPI, ROS, PE not included below will be deferred to primary provider. This is a [id number]-female presenting to the emergency department with complaints of cough, congestion x 5 days as well as low grade fevers. She also reports that she has had right sided flank pain Plan: Labs, UA, CT abd Reevaluation(s) Reevaluation #1: Reviewed triage work up. CT Abdomen/Pelvis with 4mm nonobstructing right renal calculus - unlikely cause of patient's discomfort. Remainder of the lab work unremarkable. Added COVID/Flu/RSV which was positive for influenza. Plan: Discharge to home with PCP follow up Return precautions given Medical Decision Making Lab Data 06/30/23 11:29 06/30/23 11:29 Labs: Lab Results 06/30/23 06/30/23 06/30/23 Range/Units 11:29 11:35 19:14 WBC 3.5 L (4.8-10.8) X10*3/uL RBC 5.11 (4.20-5.50) X10*6/uL Hgb 14.7 (12.0-16.0) g/dl Hct 43.9 (37.0-47.0) % MCV 85.9 (80.0-98.0) fL MCH 28.8 (27.0-33.0) pg MCHC 33.5 (31.0-35.0) g/dl RDW 12.6 (11.0-16.0) % Plt Count 243 (160-400) X10*3/uL MPV 9.9 (9.4-12.3) fL Immature Gran % (Auto) 0.3 (0.0-0.4) % Neut % (Auto) 50.3 (45-73) % Lymph % (Auto) 33.5 (20-40) % [place] % (Auto) 14.7 H (2-11) % Eos % (Auto) 0.6 (0-4) % Baso % (Auto) 0.6 (0-2) % Lymph # (Auto) 1.2 (1.2-4.9) X10*3/uL [place] # (Auto) 0.5 (0.1-1.2) X10*3/uL Eos # (Auto) 0.0 (0.0-0.4) X10*3/uL Baso # (Auto) 0.0 (0.0-0.2) X10*3/uL Abs Immat Gran (auto) 0.01 (0.00-0.03) X10*3/uL Absolute Neuts (auto) 1.7 L (2.0-8.3) x10*3/uL Absolute Nucleated RBC 0.000 (0.0-0.012) X10*3/uL Nucleated RBC % (auto) 0.0 (0.0-0.2) /100WBC Sodium 140 (135-145) mmol/L Potassium 3.7 (3.3-5.1) mmol/L Chloride 104 (96-108) mmol/L Carbon Dioxide 27 (22-29) mmol/L Anion Gap 13 (12-20) BUN 14 (9-16) mg/dL Creatinine 0.87 (0.5-1.4) mg/dL Estim Creat Clear Calc 79.1 Estimated GFR > 60 Random Glucose 286 H (60-115) mg/dL Calcium 9.3 (8.4-10.2) mg/dL Total Bilirubin 0.3 (0.0-1.0) mg/dL Direct Bilirubin 0.1 (0.0-0.5) mg/dL AST 24 (5-31) U/L ALT 20 (0-31) U/L Alkaline Phosphatase 91 (39-117) U/L Total Protein 7.1 (6.5-8.0) g/dL Albumin 3.7 (3.5-5.0) g/dL Lipase 27 (8-78) U/L Urine Color Yellow Urine Appearance Clear Urine pH 6.0 (5.0-9.0) Ur Specific [place] 1.020 (1.005-1.025) Urine Protein Trace (Neg-Trace) mg/dL Urine Glucose (UA) Negative (Negative) mg/dL Urine Ketones Negative (Negative) mg/dL Urine Blood Negative (Negative) Urine Nitrite Negative (Negative) Ur Leukocyte Esterase Moderate (2+) H (Negative) Urine RBC 0-2 (0-2) /HPF Urine WBC 11-20 H (0-5) /HPF Ur Squamous Epith Cells 3-5 (0-2) /HPF Urine Bacteria None Seen (None Seen) Hyaline Casts 0-2 (0-2) /LPF Influenza Type A (PCR) POSITIVE A (Negative) Influenza Type B (PCR) NEGATIVE (Negative) RSV RNA Qual (PCR) NEGATIVE (Negative) SARS-CoV-2 RNA (RT-PCR) NEGATIVE (Negative) Discharge Plan Discharge Clinical Impression: Influenza, Right flank pain Patient Disposition: Home, Self-Care Instructions: Influenza (DC) Additional Instructions: As we discussed, you were seen today with cough/congestion/fever/nausea/vomiting/diarrhea and found to be positive for influenza. As your symptoms have been ongoing for over 48 hours it is not recommended to treat with tamiflu. Your urine and laboratory studies were otherwise unremarkable. Your CT Abdomen/Pelvis showed a 4mm nonobstructing right renal calculus without hydronephrosis or perinephric stranding - it is less likely this is the cause of your discomfort. Please follow up with your PCP and Urologist within the next 2 days for re-evaluation. Return to the ED for worsening pain. You can use Ibuprofen 600mg every 6 hours, Tylenol 650mg every 6 hours, and [id number] Lidoderm patches as needed for pain management. Prescriptions: No Action bupropion HCl 150 mg tablet sustained-release 12 hr 150 mg PO BID fluticasone propion-salmeterol [Advair Diskus] 250-50 mcg/dose blister with device 1 ea inhalation BID albuterol sulfate 90 mcg/actuation HFA aerosol inhaler 2 puff inhalation Q6H PRN (Reason: Wheezing) insulin aspart U-100 [Novolog FlexPen U-100 Insulin] 100 unit/mL (3 mL) insulin pen 0 sliding scale dose subcut TIDWM amlodipine 10 mg tablet 10 mg PO DAILY Qty: 30 0RF cholecalciferol (vitamin D3) 50 mcg (2,000 unit) capsule 50 mcg PO DAILY metformin 750 mg tablet extended release 24 hr 750 mg PO BID lisinopril 40 mg tablet 40 mg PO DAILY Tresiba U-100 Insulin 100 unit/mL solution 60 unit subcut BEDTIME Patient Comments: half dose taken montelukast 10 mg tablet 10 mg PO DAILY atorvastatin 40 mg tablet 40 mg PO DAILY duloxetine [Cymbalta] 60 mg capsule,delayed release(DR/EC) 60 mg PO BID
[2023-06-30 11:39] LABS: MANUAL DIFF FLAG NO
[2023-06-30 11:43] LABS: Appearance Urine Clear; Color Urine Yellow; Glucose Urine UA Negative (Negative); Leukocyte Esterase Urine Moderate (2+) (Negative); Nitrite Urine Negative (Negative); UMIC TRIGGER UACC YES; Urine Blood Negative (Negative); Urine Ketones Negative (Negative); Urine Protein Trace mg/dL (Neg-Trace)
[2023-06-30 11:44] LABS: Basophils Percent Auto 0.6 % (0-2); Eosinophils Percent Auto 0.6 % (0-4); Hematocrit 43.9 % (37.0-47.0); Hemoglobin 14.7 g/dl (12.0-16.0); Imm Gran Abs Auto 0.01 X10*3/uL (0.00-0.03); Imm Gran Pct Auto 0.3 % (0.0-0.4); Lymphocytes Absolute Auto 1.2 X10*3/uL (1.2-4.9); Lymphocytes Percent Auto 33.5 % (20-40); Mean Corpuscular HGB Conc 33.5 g/dl (31.0-35.0); Mean Corpuscular Hemoglobin 28.8 pg (27.0-33.0); Mean Corpuscular Volume 85.9 fL (80.0-98.0); Mean Platelet Volume 9.9 fL (9.4-12.3); Monocytes Absolute Auto 0.5 X10*3/uL (0.1-1.2); Monocytes Percent Auto 14.7 % (2-11); Neutrophils Absolute Auto 1.7 x10*3/uL (2.0-8.3); Neutrophils Percent Auto 50.3 % (45-73); Platelet Count 243 X10*3/uL (160-400); Red Blood Count 5.11 X10*6/uL (4.20-5.50); Red Cell Distribution Width 12.6 % (11.0-16.0); White Blood Count 3.5 X10*3/uL (4.8-10.8)
[2023-06-30 11:45] LABS: Bacteria Urine None Seen (None Seen); Hyaline Casts Urine 0-2 /LPF (0-2); RBC Urine 0-2 /HPF (0-2); UACC Culture Trigger YES
[2023-06-30 11:54] LABS: Alanine Aminotransferase 20 U/L (0-31); Albumin Level 3.7 g/dL (3.5-5.0); Alkaline Phosphatase 91 U/L (39-117); Anion Gap 13 (12-20); Aspartate Amino Transferase 24 U/L (5-31); Bilirubin Direct 0.1 mg/dL (0.0-0.5); Bilirubin Total 0.3 mg/dL (0.0-1.0); Blood Urea Nitrogen 14 mg/dL (9-16); Calcium 9.3 mg/dL (8.4-10.2); Carbon Dioxide 27 mmol/L (22-29); Chloride 104 mmol/L (96-108); Creatinine Clr Calc Pharmacy 79.1; Estimated Glomerular Filt Rate > 60; Glucose Random 286 mg/dL (60-115); Lipase 27 U/L (8-78); Potassium 3.7 mmol/L (3.3-5.1); Sodium 140 mmol/L (135-145); Total Protein 7.1 g/dL (6.5-8.0)
[2023-06-30 18:40] VITALS: BP 121/41; PULSE 71; RESP 18; TEMP 37; O2SAT 95
--- OUTSIDE RECORDS SUMMARY | 2023-06-30 19:02 | XMS_ITS | Continuity of Care Document ---
Author Name Unknown Organization [facility] ter Address [address] [place] [address]- Care Team Providers Care Mortar Man Name Role Phone Steve Price DO Monica Primary Care Physician [phone] Encounter [facility] Date(s): 12/16/19 - 12/17/[address] [address]- [facility] Discharge Disposition: A-Transfer VNA/Home Health Attending Physician: Quintin Ruiz MD Admitting Physician: Quintin Ruiz MD Referring Physician: Quintin Ruiz MD Allergies, Adverse Reactions, Alerts Substance Reaction Severity Status NKA Active Medications acetaminophen 325 mg oral tablet 650 mg, By Mouth, Every 6 hours, Refills 0, Maintenance, 12/17/19 7:59:00 EDT Start Date: 12/17/19 Status: Ordered AmLODipine Tablet 5 mg, By Mouth, Daily at bedtime, Refills 0, Maintenance, 12/17/19 7:59:00 EDT Start Date: 12/17/19 Status: Ordered aspirin 162.5 mg oral capsule, extended release = 325 mg, By Mouth, 2 times a day, 0 Refills, Maintenance, 12/17/19 8:01:00 EDT, ER Capsule Start Date: 12/17/19 Status: Ordered atorvastatin 20 mg oral tablet 1 tablet = 20 mg, By Mouth, Daily, 0 Refills, Maintenance Start Date: 11/07/16 Status: Ordered celecoxib 200 mg oral capsule 1 capsule = 200 mg, By Mouth, Daily, 0 Refills, Maintenance, 12/17/19 8:00:00 EDT, Capsule Start Date: 12/17/19 Status: Ordered Colace Capsule 100 mg, 1, capsule, By Mouth, 2 times a day, Refills 0, Maintenance, 12/17/19 8:00:00 EDT Start Date: 12/17/19 Status: Ordered Cymbalta Capsule = 90 mg, By Mouth, 0 Refills, Maintenance, 11/07/16 14:29:40 Start Date: 11/07/16 Status: Ordered Diltiazem 0 Refills, Maintenance, 11/07/16 14:30:46 Start Date: 11/07/16 Status: Ordered Humalog Inj Subcutaneous Infusion, 0 Refills, Maintenance, 11/07/16 14:32:29 Start Date: 11/07/16 Status: Ordered HYDROmorphone 4 mg oral tablet = 4 mg, By Mouth, Every 3 hours, PRN Pain , Moderate, 0 Refills, Maintenance, 12/17/19 8:00:00 EDT,Tablet, Partial fill upon patient request Start Date: 12/17/19 Status: Ordered HYDROmorphone 4 mg oral tablet See Instructions, PRN Pain , Moderate, Take 0.5-1 tablet By Mouth Every 3 hours as needed, # 56 tablet, 0 Refills, Acute 12/24/19 8:20:00 EDT, 12/17/19 8:19:00 EDT, Tablet, [facility], Partial fill upon patient request, 160, cm, 12/17/19... Start Date: 12/17/19 Stop Date: 12/24/19 Status: Ordered lisinopril 20 mg oral tablet 40 mg, 2, tablet, By Mouth, Daily at bedtime, Refills 0, Maintenance, 12/17/19 8:00:00 EDT Start Date: 12/17/19 Status: Ordered Lutera 1 tablet, By Mouth, Daily, 0 Refills, Maintenance, 11/07/16 14:32:53 Start Date: 11/07/16 Status: Ordered Maalox Plus Liquid 30 mL, By Mouth, Every 4 hours, PRN Other, Heartburn, 0 Refills, Maintenance, 12/17/19 7:59:00 EDT,Suspension Start Date: 12/17/19 Status: Ordered Melatonin Daily at bedtime, 0 Refills, Maintenance, 11/07/16 14:34:24 Start Date: 11/07/16 Status: Ordered metFORMIN 750 mg oral tablet, extended release 1 tablet = 750 mg, By Mouth, 2 times a day, 0 Refills, Maintenance, 11/07/16 14:30:01 Start Date: 11/07/16 Status: Ordered Milk of Magnesia Liquid 30 mL, By Mouth, Daily, PRN Constipation, 0 Refills, Maintenance, 12/17/19 8:00:00 EDT, Suspension Start Date: 12/17/19 Status: Ordered MiraLax Powder 1 pack/packet = 17 Gm, By Mouth, Daily, 0 Refills, Maintenance, 12/17/19 8:01:00 EDT, Powder Start Date: 12/17/19 Status: Ordered Multivitamin Daily, 0 Refills, Maintenance, 11/07/16 14:33:05 Start Date: 11/07/16 Status: Ordered pantoprazole 40 mg oral delayed release tablet = 40 mg, By Mouth, Daily, 0 Refills, Maintenance, 12/17/19 8:00:00 EDT, EC Tablet Start Date: 12/17/19 Status: Ordered senna 187 mg oral tablet 1 tablet = 8.6 mg, By Mouth, Daily at bedtime, 0 Refills, Maintenance, 12/17/19 8:00:00 EDT, Tablet Start Date: 12/17/19 Status: Ordered Toujeo SoloStar Subcutaneous Infusion, Daily, 60 units daily, 0 Refills, Maintenance, 11/07/16 14:32:00 Start Date: 11/07/16 Status: Ordered Vitamin D3 2000 intl units oral tablet 1 tablet = 2,000 International_Units, By Mouth, Daily, 0 Refills, Maintenance, 11/07/16 14:31:28 Start Date: 11/07/16 Status: Ordered Problem List Condition Effective Dates Status Health Status Inform ant Diabetes(Confirmed) Active Results Radiology Reports * Exam Date Time Procedure Performing Provider Status 12/16/19 10:16 PM Knee 1 or 2 Views Left Asiya Daniel ; Auth (Verified) Notes: (Knee 1 or 2 Views Left) Reason For Exam: Postop RESULT: Knee 1 or 2 Views Left Knee 1 or 2 Views Left 1 view INDICATION/CLINICAL QUESTION: Reason: Postop; Clinical Question(s): Implant Position; Special COMPARISON: None. FINDINGS: Total knee arthroplasty with intact hardware and normal alignment. No fracture. IMPRESSION: No apparent complication. WSN: [id number] Ordering Physician: Brien Resendiz Dictated By: Lukas Zuleta MD Dictated Date/Time: 12/16/19 10:34 p Reviewed By: Lukas Zuleta MD Signed By: Lukas Zuleta MD Signed Date/Time: 12/16/19 10:34 pm Transcribed By: ASHLEY Transcribed Date/Time: 12/16/19 10:34 pm Vital Signs Most recent to oldest [Reference Range]: 1 2 3 Height 160 cm (12/17/19 7:15 AM) 160 cm (12/17/19 4:04 AM) 160 cm (12/16/19 11:52 PM) Weight 99.3 kg (12/16/19 11:03 AM) 99.3 kg (12/16/19 9:46 AM) Oxygen Saturation [94-100 %] 98 % (12/17/19 7:15 AM) 96 % (12/17/19 4:04 AM) 100 % (12/16/19 11:52 PM) Pulse Rate [55-90 bpm] 87 bpm (12/17/19 7:15 AM) 85 bpm (12/17/19 4:04 AM) 90 bpm (12/16/19 11:52 PM) Body Mass Index [18.5-24.99] 38.79 *>HHI* (12/16/19 11:03 AM) 38.79 *>HHI* (12/16/19 9:46 AM) Blood Pressure [90-138/55-84 mm Hg] 134/78mm Hg (12/17/19 7:15 AM) 148/76mm Hg *H* (12/17/19 4:04 AM) 138/67mm Hg (12/16/19 11:52 PM) Respiratory Rate [16-30 br/min] 18 br/min (12/17/19 1:18 PM) 18 br/min (12/17/19 11:08 AM) 18 br/min (12/17/19 10:08 AM) Temperature [96.8-100.4 DegF] 97.9 DegF (12/17/19 7:15 AM) 97.8 DegF (12/17/19 4:04 AM) 97.6 DegF (12/16/19 11:52 PM) Liters per Minute 2 L/min (12/17/19 4:04 AM) 2 L/min (12/16/19 11:52 PM) Mode of Delivery (Oxygen) Room air (12/17/19 7:15 AM) Nasal cannula (12/17/19 4:04 AM) Nasal cannula (12/16/19 11:52 PM) Blood pressure sites Arm, right (12/17/19 7:15 AM) Arm, right (12/17/19 4:04 AM) Arm, left (12/16/19 11:52 PM) Temperature Route Oral (12/17/19 7:15 AM) Oral (12/17/19 4:04 AM) Oral (12/16/19 11:52 PM) Dry Weight 106.5 kg (12/16/19 11:03 AM) 99.3 kg (12/16/19 9:46 AM) Social History Social History Type Response Sex Female
--- OUTSIDE RECORDS SUMMARY | 2023-06-30 19:02 | XMS_ITS | Continuity of Care Document ---
Author Name Unknown Organization [facility] Address [address] [place] [id number]- Care Team Providers Care Light Equipment Operator Name Role Phone Steve Price DO Monica Primary Care Physician [place] [facility] [place] 11/18/19 - 12/18/19 [facility] [address] [address]- [facility] Attending Physician: Candi Joe Admitting Physician: AdmCandi atkinson Referring Physician: Admtr ArLuciana Allergies, Adverse Reactions, Alerts Substance Reaction Severity [...] 12/24/19 8:20:00 EDT, 12/17/19 8:19:00 EDT, Tablet, [facility], Partial fill upon patient request, [...] Status Health Status Inform ant Diabetes(Confirmed) Active Social History Social History Type Response Sex Female
--- OUTSIDE RECORDS SUMMARY | 2023-06-30 19:02 | XMS_ITS | Continuity of Care Document ---
Author Name Unknown Organization [facility] Address [address] [place] [id number]- Care Team Providers Care Publications Sales Representative Name Role Phone Steve Price DO Monica Primary Care Physician [phone] Encounter [facility] [place] Date(s): 12/16/19 - 01/15/[address] [address]- [facility] Attending Physician: Not on Staff, Attending MD Admitting Physician: Not on Staff, Admitting MD Referring Physician: Not on Staff, Referring MD Allergies, Adverse Reactions, Alerts Substance Reaction [...] patient request Start Date: 12/17/19 Status: Ordered lisinopril 20 mg oral tablet [...]
--- OUTSIDE RECORDS SUMMARY | 2023-06-30 19:03 | XMS_ITS | Continuity of Care Document ---
Author Name Unknown Organization [facility] Address [address] [place] [id number]- Care Team Providers Care Braid Maker Name Role Phone Dee SALAZAR Steve Anderson Primary Care Physician Encounter 12/18/19 - 12/31/19 [facility] [address] [place] [id number]- [facility] Discharge Disposition: GOALS MET Allergies, Adverse Reactions, Alerts Substance Reaction Severity [...]
--- OUTSIDE RECORDS SUMMARY | 2023-06-30 19:03 | XMS_ITS | Continuity of Care Document ---
Author Name Unknown Organization [facility] Address [address] [address]- Care Team Providers Care Multimedia Developer Name Role Phone Steve Price DO Monica Primary Care Physician [phone] Encounter [facility] [place] Date(s): 11/12/19 - 12/18/19 [facility] [address] [address]- [facility] Attending Physician: Ny Dodson MD Referring Physician: Quintin Ruiz MD Allergies, [...] 12/24/19 8:20:00 EDT, 12/17/19 8:19:00 EDT, Tablet, [facility], Partial fill upon patient [...]
[2023-06-30 19:56] LABS: Influenza A PCR POSITIVE (Negative); Influenza B PCR NEGATIVE (Negative); Resp Syncy Virus RNA Qual PCR NEGATIVE (Negative); SARS COV2 PCR INHOUSE NEGATIVE (Negative)
[2023-06-30 20:34] VITALS: BP 129/41; PULSE 73; RESP 16; TEMP 37.3; O2SAT 94
== END 2023-06-30 20:43 | disposition home or self-care (01) ==
PROVIDERS: Physician Assistant Medical; Emergency Provider Emergency Medicine; PCP Internal Medicine
DX: J10.1 Influenza due to other identified influenza virus with other respiratory manifestations (principal); R10.11 Right upper quadrant pain; R05.9 Cough, unspecified; R11.2 Nausea with vomiting, unspecified; Z20.822 Contact with and (suspected) exposure to COVID-19; Z20.828 Contact with and (suspected) exposure to other viral communicable diseases; Z79.899 Other long term (current) drug therapy
CPT/HCPCS: 0241U; 36415; 74176; 80048; 80076; 81001; 83690; 85025; 87086; 99284

== ENCOUNTER 2023-08-22 07:48 | Outpatient (REF) | payer OTHER, SELFPAY ==
[2023-08-22 13:01] LABS: Estimated Average Glucose 278 mg/dL; Hemoglobin A1c % 11.3 % (<6.0)
== END 2023-08-22 07:49 | disposition home or self-care (01) ==
LOC: HO.MANLDS 07:48
PROVIDERS: Visit Provider Internal Medicine
DX: E11.65 Type 2 diabetes mellitus with hyperglycemia (principal)
CPT/HCPCS: 36415; 83036

== ENCOUNTER 2023-10-29 17:02 | Outpatient (REF) | payer OTHER, SELFPAY ==
[2023-10-29 18:27] LABS: Blood Urea Nitrogen 19 mg/dL (9-16); Estimated Glomerular Filt Rate > 60
== END 2023-10-29 17:03 | disposition home or self-care (01) ==
LOC: HO.LAB 17:02
PROVIDERS: PCP Internal Medicine; Visit Provider Urology
DX: N28.1 Cyst of kidney, acquired (principal)
CPT/HCPCS: 36415; 82565; 84520

== ENCOUNTER 2024-02-23 15:21 | Emergency (ER) | payer OTHER, SELFPAY ==
[2024-02-23] VITALS (8 sets, daily range): BP systolic 143–179; BP diastolic 73–95; PULSE 79–112; RESP 14–18; TEMP 36.3–36.4; O2SAT 93–100; BMI 42.1
--- NOTE | ~2024-02-23 | CT_ITS ---
EXAMINATION: CT ANGIOGRAM HEAD CT ANGIOGRAM NECK CLINICAL INFORMATION: Reason for Exam severe dizziness sudden onset COMPARISON: None. TECHNIQUE: Initial noncontrast digital media intern imaging of the head and neck was performed. Noncontrast head CT was also performed. Test bolus sequences followed by intravenous administration 70 mL of Omnipaque 350. Helical imaging was performed in the axial plane from the aortic arch to the skull vertex. Delayed postcontrast imaging of the head was also performed. The data was processed at the lead neurodiagnostic technologist workstation for generation of MIP sequences. Angled MIPs and volume rendered reformatted images were also generated at an offline 3D workstation. Stenoses are assessed in accordance with NASCET criteria unless otherwise indicated. DLP: 1964 mGy-cm This CT examination was performed using dose optimization techniques as appropriate, variously including the following: *Automated exposure control. *Adjustment of mA and/or kV according to patient size (this includes techniques or standardized protocols for targeted exams where dose is matched to indication/reason for exam; i.e. extremities or head). *Use of iterative reconstruction technique. FINDINGS: CT Head: There is no evidence of acute intracranial hemorrhage or edematous territorial infarction. There is no abnormal attenuation within the brain parenchyma. Bhagat-white matter differentiation is preserved. The ventricles are normal in size and configuration. No evidence for obstructive hydrocephalus. No abnormal mass effect or midline shift. No extra-axial fluid collections. No pathologic intra-axial enhancement or regional oligemia. No acute soft tissue or osseous abnormalities. The mastoid air cells and paranasal sinuses are clear. CT Neck: There is a 1.5 cm hypodense nodule in the upper left lobe of the thyroid gland. The remaining cervical soft tissues are within normal limits. Multilevel cervical spondylosis. CT Upper Chest: The visualized lung apices and upper mediastinum are within normal limits. Neck CTA: Aortic Arch: Normal contour and caliber. Two vessel branching pattern of the arch with left common carotid artery arising from the brachiocephalic trunk. Great Vessel Origins: No significant stenosis of the branch origins. Right Common Carotid Artery: No focal stenosis or occlusion. Cervical Right Internal Carotid Artery: Normal opacification without focal stenosis or occlusion. Left Common Carotid Artery: No focal stenosis or occlusion. Cervical Left Internal Carotid Artery: Normal opacification without focal stenosis or occlusion. Cervical Right Vertebral Artery: No focal stenosis or occlusion. Cervical Left Vertebral Artery: No focal stenosis or occlusion. Brain CTA: Intracranial Internal Carotid Arteries: No focal stenosis or occlusion. Right Anterior Cerebral Artery: Normal A1 segment. Normal opacification of the distal SAM segments. Left Anterior Cerebral Artery: Normal A1 segment. Normal opacification of the distal SAM segments. Anterior Communicating Artery: Normal. Right Middle Cerebral Artery: Normal M1 segment of the MCA without focal stenosis or occlusion. Normal arborization of the distal segments. Left Middle Cerebral Artery: Normal M1 segment of the MCA without focal stenosis or occlusion. Normal arborization of the distal segments. Right Vertebral Artery: Normal V4 segment. Left Vertebral Artery: Normal V4 segment. Basilar Artery: Normal without focal stenosis or occlusion. Normal appearance of the proximal superior cerebellar arteries. Right Posterior Cerebral Artery: Normal P1 segment. Normal opacification of the distal WOOD MILLING MACHINE HAND segments. Left Posterior Cerebral Artery: Normal P1 segment. Normal opacification of the distal WOOD MILLING MACHINE HAND segments. Normal opacification of the superior sagittal, straight, transverse, and sigmoid sinuses. CT/CT angio head neck IMPRESSION: 1. No acute intracranial abnormality including hemorrhage, mass effect, hydrocephalus, or acute territorial edematous infarction. 2. No arterial high grade stenosis or large vessel occlusion in the head or neck. 3. Incidental 1.5 cm hypodense nodule in the left hemithyroid. Recommend further assessment with thyroid ultrasound.
[2024-02-23 16:10] LABS: Appearance Urine Cloudy; Color Urine Yellow; Glucose Urine UA Negative (Negative); Leukocyte Esterase Urine Small (1+) (Negative); Nitrite Urine Negative (Negative); UMIC TRIGGER UACC YES; Urine Blood Negative (Negative); Urine Ketones Negative (Negative); Urine Protein 300 (3+) mg/dL (Neg-Trace)
--- NOTE | 2024-02-23 16:11 | ED.NAVMDI ---
HPI - Nausea/Vomiting/Diarrhea General Chief complaint: Nausea/Vomiting/Diarrhea Stated complaint: NAUSEA,VOMITING PER EMS Time Seen by Provider: 02/23/24 16:00 Source: patient and EMS Mode of arrival: EMS Limitations: no limitations History of Present Illness ED Provider: Dr. Iris Macdonald HPI Narrative: Patient comes to the emergency room complaining of nausea vomiting and lightheadedness. Patient states about 1 hour prior to arrival, patient was working. Suddenly, patient has sensation of hot flash, nausea, vomiting, became diaphoretic, had unsteady gait, lightheadedness. Patient denies room spinning, patient states that she moves her head in any way, the dizziness gets worse. Patient denies any chest pain, palpitations, shortness of breath. No abdominal pain. Related Data Home Medications ?Medication ?Instructions ?Recorded ?Confirmed atorvastatin 40 mg tablet 40 mg PO DAILY 10/08/21 06/27/23 cholecalciferol (vitamin D3) 50 50 mcg PO DAILY 10/08/21 06/27/23 mcg (2,000 unit) capsule duloxetine 60 mg capsule,delayed 60 mg PO BID 10/08/21 06/27/23 release (Cymbalta) insulin degludec 100 unit/mL 60 unit subcut BEDTIME 10/08/21 06/27/23 subcutaneous solution (Tresiba U-100 Insulin) lisinopril 40 mg tablet 40 mg PO DAILY 10/08/21 06/27/23 metformin 750 mg tablet,extended 750 mg PO BID 10/08/21 06/27/23 release 24 hr montelukast 10 mg tablet 10 mg PO DAILY 10/08/21 06/27/23 albuterol sulfate 90 mcg/actuation 2 puff inhalation Q6H PRN Wheezing 04/16/23 06/27/23 aerosol inhaler bupropion HCl 150 mg tablet,12 hr 150 mg PO BID 04/16/23 06/27/23 sustained-release fluticasone 250 mcg-salmeterol 50 1 ea inhalation BID 04/16/23 06/27/23 mcg/dose blistr powdr for inhalation (Advair Diskus) insulin aspart U-100 100 unit/mL 0 sliding scale dose subcut TIDWM 04/16/23 06/27/23 (3 mL) subcutaneous pen (Novolog FlexPen U-100 Insulin aspart) Previous Rx's ?Medication ?Instructions ?Recorded amlodipine 10 mg tablet 10 mg PO DAILY #30 tabs 04/17/23 meclizine 50 mg tablet 50 mg PO BID PRN dizziness #10 tabs 02/23/24 Allergies Allergy/AdvReac Type Severity Reaction Status Date / Time No Known Allergies Allergy Verified 02/23/24 15:39 [No Known Allergies*] Review of Systems Review of Systems: Constitutional : No Weight loss, No Fever, No Chills, No Night Sweats, No Fatigue, No Malaise ENT/Mouth : No Hearing loss, No Ear Pain, No Nasal Congestion, No Sinus Pain, No Hoarseness, No sore throat, No Rhinorrhea, No Swallowing Difficulty Eyes: No Eye Pain, No Swelling, No Redness, No Foreign Body, No Discharge, No Vision Changes Cardiovascular : No Chest Pain, No SOB, No Dyspnea on Exertion, No Orthopnea, No Edema, No Palpitations Respiratory : No Cough, No Sputum, No Wheezing, No Smoke Exposure, No Dyspnea Gastrointestinal : Complaining of nausea and vomiting, No Diarrhea, No Constipation, No abdominal Pain, No Hematochezia, No Melena Genitourinary : no irregular bleeding, No Dysuria, No Urinary Frequency, No Hematuria, No Urinary Incontinence, No Urgency, No Flank Pain, No Urinary Flow Changes, No Hesitancy Musculoskeletal : No joint pain, No Myalgias, No Joint Swelling Skin : No Skin Lesions, No rash Neuro : No Weakness, No Numbness, No Paresthesias, No Loss of Consciousness, denies headache, complaining of feeling unsteady when standing and with walking and any head movement Psych : No Anxiety/Panic, No Depression, No SI/HI/AH/VH, No Social Issues, Heme/Lymph: No Bruising, No Bleeding,No Lymphadenopathy Endocrine : No Polyuria, No Polydipsia, No Temperature Intolerance [facility] Past Medical History Medical History Depression Elevated cholesterol Diabetes HTN (hypertension) Sleep apnea Asthma Hx of nephrolithotomy with removal of calculi Surgical History History of ankle surgery Hx of colonoscopy Family History Family History Father Diabetes Afib Social History Social History Household Members: Spouse Household Members Other:: 2 Housing: House Alcohol intake: never Patient Tobacco Use Status: Never used Tobacco Smoked in Last 30 Days: No Use of substances other than those prescribed or required for medical reasons: No Advance Directives: No Advance Directives Information Provided: No Do you have a plan to hurt others: No Plan Patient : No service: No Physical Exam Vital Signs: Vital Signs: Last Vital Signs Temp 97.4 F 02/23/24 20:59 Pulse 79 02/23/24 20:59 Resp 16 02/23/24 20:59 BP 143/75 H 02/23/24 20:59 Pulse Ox 94 02/23/24 20:59 O2 Del Method Room Air 02/23/24 20:59 BMI result Body Mass Index 42.1 Const: Other: Appearance: Alert. Oriented X3. seems nauseous, actively vomiting Eyes: Pupils equal, round and reactive to light. ENT: Pharynx normal. Neck: Normal inspection. Neck supple. No lymph nodes noted. No crepitus CVS: Normal heart rate and rhythm. Pulses normal. Normal S1 and S2 Respiratory: No respiratory distress. Breath sounds normal. No Wheezing. No rales Abdomen: Soft and nontender. No rigidity. No distention. Skin: Skin warm and clammy. Normal skin color. Normal skin turgor. Extremities: No lower extremity edema. No Lacerations. No Rash Neuro: Oriented X 3. No motor deficit. No sensory deficit. Moving all extremities. No slurred speech. CN 2 through 12 grossly intact Psych: calm, cooperative, normal affect Course Course Course Narrative: - All of patient's labs imaging pending - orthostatics and EKG pending - patient receiving IV fluids, Zofran, p.o. meclizine and diazepam for symptomatic relief - vitals stable, blood pressure 155/73, heart rate 82, temperature 97.4 degrees, oxygen 93% on room air Medications Administered Discontinued Medications Generic Name Dose Route Start Last Admin Trade Name Freq PRN Reason Stop Dose Admin Diazepam 2 mg 02/23/24 16:10 02/23/24 16:40 Diazepam 2 Mg Tablet PO 02/23/24 16:11 2 mg ONCE ONE Administration Sodium Chloride 1,000 mls @ 999 mls/hr 02/23/24 16:10 02/23/24 16:39 Ns IVCONT 02/23/24 17:10 999 mls/hr .Q1H1M ONE Administration Iohexol 100 ml 02/23/24 19:58 02/23/24 19:59 Iohexol 350 Mg/Ml 100 Ml Infus..Btl IV 02/23/24 19:59 70 ml ONCE ONE Administration Ketorolac Tromethamine 30 mg 02/23/24 21:26 02/23/24 22:01 Ketorolac Tromethamine 30 Mg/Ml Vial IVPUSH 02/23/24 21:27 30 mg ONCE ONE Administration Meclizine HCl 50 mg 02/23/24 16:10 02/23/24 16:40 Meclizine Hcl 25 Mg Tablet PO 02/23/24 16:11 50 mg ONCE ONE Administration Metoclopramide HCl 10 mg 02/23/24 21:26 02/23/24 22:01 Metoclopramide Hcl 10 Mg/2 Ml Vial IVPUSH 02/23/24 21:27 10 mg ONCE ONE Administration Ondansetron HCl 4 mg 02/23/24 16:10 02/23/24 16:39 Ondansetron Hcl 4 Mg/2 Ml Vial IVPUSH 02/23/24 16:11 4 mg ONCE ONE Administration Medical Decision Making Medical Decision Making MDM Narrative: - my interpretation of labs: No significant electrolyte abnormality, normal LFTs, troponin slightly bumped 18.0, will be repeated. Urinalysis shows white blood cells present with trace bacteria. Serology negative for influenza RSV and COVID my interpretation of CT scan: No intracranial bleed. No obvious abnormality - after the IV treatment mentioned above, patient states that she is no longer dizzy. However, patient states that now she has a really bad headache. Patient being given Reglan and Toradol - overall after the IV treatment mentioned above patient feels better. Patient was able to ambulate by herself with steady gait. Patient's troponin is a bit bumped. However, patient has chronically elevated troponins. Patient has no chest pain or EKG changes to indicate a cardiac event. - given the patient's symptoms, observation was considered and offered. Dr. Garcia spoke with The patient her . Overall, patient feels well enough to go home. Differential Diagnosis Differential Diagnoses: The differential diagnosis associated with the presentation includes ( BPPV, vertigo, posterior CVA, migraine) Admission/Observation Consideration of admission/observation: Escalation of care including admission/observation considered ( given patient's symptoms and presentation observation was considered) Consult Healthcare Provider Management of the patient was discussed with: Hospitalist Lab Data MDM Lab Attestation statement: I reviewed the patient's lab results. 02/23/24 15:55 02/23/24 18:45 Labs: Lab Results 02/23/24 02/23/24 02/23/24 Range/Units 15:55 18:45 22:15 WBC 9.9 (4.8-10.8) X10*3/uL RBC 4.96 (4.20-5.50) X10*6/uL Hgb 14.4 (12.0-16.0) g/dl Hct 43.5 (37.0-47.0) % MCV 87.7 (80.0-98.0) fL MCH 29.0 (27.0-33.0) pg MCHC 33.1 (31.0-35.0) g/dl RDW 12.9 (11.0-16.0) % Plt Count 274 (160-400) X10*3/uL MPV 9.5 (9.4-12.3) fL Immature Gran % (Auto) 1.1 H (0.0-0.4) % Neut % (Auto) 76.8 H (45-73) % Lymph % (Auto) 14.1 L (20-40) % [place] % (Auto) 6.8 (2-11) % Eos % (Auto) 0.7 (0-4) % Baso % (Auto) 0.5 (0-2) % Lymph # (Auto) 1.4 (1.2-4.9) X10*3/uL [place] # (Auto) 0.7 (0.1-1.2) X10*3/uL Eos # (Auto) 0.1 (0.0-0.4) X10*3/uL Baso # (Auto) 0.1 (0.0-0.2) X10*3/uL Abs Immat Gran (auto) 0.11 H (0.00-0.03) X10*3/uL Absolute Neuts (auto) 7.6 (2.0-8.3) x10*3/uL Absolute Nucleated RBC 0.000 (0.0-0.012) X10*3/uL Nucleated RBC % (auto) 0.0 (0.0-0.2) /100WBC Sodium 146 H (135-145) mmol/L Potassium 3.9 (3.3-5.1) mmol/L Chloride 106 (96-108) mmol/L Carbon Dioxide 29 (22-29) mmol/L Anion Gap 15 (12-20) BUN 14 (9-16) mg/dL Creatinine 0.68 (0.5-1.4) mg/dL Estim Creat Clear Calc 103.5 Estimated GFR > 60 Random Glucose 122 H (60-115) mg/dL Calcium 9.6 (8.4-10.2) mg/dL Magnesium 2.1 (1.6-2.6) mg/dL Total Bilirubin 0.3 (0.0-1.0) mg/dL AST 20 (5-31) U/L ALT 20 (0-31) U/L Alkaline Phosphatase 109 (39-117) U/L Troponin I High Sens 18.0 H D 28.2 H D (<3.5-17.0) ng/L Total Protein 7.6 (6.5-8.0) g/dL Albumin 4.2 (3.5-5.0) g/dL Urine Color Yellow Urine Appearance Cloudy Urine pH 7.0 (5.0-9.0) Ur Specific [place] 1.020 (1.005-1.025) Urine Protein 300 (3+) H (Neg-Trace) mg/dL Urine Glucose (UA) Negative (Negative) mg/dL Urine Ketones Negative (Negative) mg/dL Urine Blood Negative (Negative) Urine Nitrite Negative (Negative) Ur Leukocyte Esterase Small (1+) H (Negative) Urine RBC 0-2 (0-2) /HPF Urine WBC 21-50 H (0-5) /HPF Ur Squamous Epith Cells 6-10 (0-2) /HPF Urine Bacteria Trace (None Seen) Hyaline Casts 0-2 (0-2) /LPF Influenza Type A (PCR) NEGATIVE (Negative) Influenza Type B (PCR) NEGATIVE (Negative) RSV RNA Qual (PCR) NEGATIVE (Negative) SARS-CoV-2 RNA (RT-PCR) NEGATIVE (Negative) Critical Care Time Critical Care Time Critical Care Time: Yes Total Critical Care Time: 45 Attestation: I have personally provided critical care time. Time includes review of lab data, radiology results, discussion with consultants, and monitoring for potential decompensation. Intervention performed as documented. Discharge Plan Discharge Clinical Impression: Headache, Dizziness Patient Disposition: Home, Self-Care Instructions: Acute Headache (ED), Benign Paroxysmal Positional Vertigo (ED), Dizziness (ED) Additional Instructions: Please follow-up with your primary care physician tomorrow. If you have any worsening or new symptoms, please return to the emergency room or call 911 Prescriptions: New meclizine 50 mg tablet 50 mg PO BID PRN (Reason: dizziness) Qty: 10 0RF No Action bupropion HCl 150 mg tablet sustained-release 12 hr 150 mg PO BID fluticasone propion-salmeterol [Advair Diskus] 250-50 mcg/dose blister with device 1 ea inhalation BID albuterol sulfate 90 mcg/actuation HFA aerosol inhaler 2 puff inhalation Q6H PRN (Reason: Wheezing) insulin aspart U-100 [Novolog FlexPen U-100 Insulin] 100 unit/mL (3 mL) insulin pen 0 sliding scale dose subcut TIDWM amlodipine 10 mg tablet 10 mg PO DAILY Qty: 30 0RF cholecalciferol (vitamin D3) 50 mcg (2,000 unit) capsule 50 mcg PO DAILY metformin 750 mg tablet extended release 24 hr 750 mg PO BID lisinopril 40 mg tablet 40 mg PO DAILY Tresiba U-100 Insulin 100 unit/mL solution 60 unit subcut BEDTIME Patient Comments: half dose taken montelukast 10 mg tablet 10 mg PO DAILY atorvastatin 40 mg tablet 40 mg PO DAILY duloxetine [Cymbalta] 60 mg capsule,delayed release(DR/EC) 60 mg PO BID Stand Alone Forms: Work/School Release Print Language: Georgian
--- NOTE | 2024-02-23 16:12 | ECG_ITS ---
Test Reason : dizziness Blood Pressure : / mmHG Vent. Rate : 072 BPM Atrial Rate : 072 BPM P-R Int : 154 ms QRS Dur : 098 ms QT Int : 422 ms P-R-T Axes : 059 048 016 degrees QTc Int : 462 ms Normal sinus rhythm Normal ECG When compared with ECG of 16-APR-2023 09:26, No significant change was found Referred By: Iris Macdonald Electronically Signed By:MILAD ANDREWS
[2024-02-23 16:15] LABS: Bacteria Urine Trace (None Seen); Hyaline Casts Urine 0-2 /LPF (0-2); RBC Urine 0-2 /HPF (0-2); UACC Culture Trigger YES; WBC Urine 21-50 /HPF (0-5)
[2024-02-23 16:31] LABS: MANUAL DIFF FLAG NO
[2024-02-23 16:32] LABS: Basophils Absolute Auto 0.1 X10*3/uL (0.0-0.2); Basophils Percent Auto 0.5 % (0-2); Eosinophils Absolute Auto 0.1 X10*3/uL (0.0-0.4); Eosinophils Percent Auto 0.7 % (0-4); Hematocrit 43.5 % (37.0-47.0); Hemoglobin 14.4 g/dl (12.0-16.0); Imm Gran Abs Auto 0.11 X10*3/uL (0.00-0.03); Imm Gran Pct Auto 1.1 % (0.0-0.4); Lymphocytes Absolute Auto 1.4 X10*3/uL (1.2-4.9); Lymphocytes Percent Auto 14.1 % (20-40); Mean Corpuscular HGB Conc 33.1 g/dl (31.0-35.0); Mean Corpuscular Volume 87.7 fL (80.0-98.0); Mean Platelet Volume 9.5 fL (9.4-12.3); Monocytes Absolute Auto 0.7 X10*3/uL (0.1-1.2); Monocytes Percent Auto 6.8 % (2-11); Neutrophils Absolute Auto 7.6 x10*3/uL (2.0-8.3); Neutrophils Percent Auto 76.8 % (45-73); Platelet Count 274 X10*3/uL (160-400); Red Blood Count 4.96 X10*6/uL (4.20-5.50); Red Cell Distribution Width 12.9 % (11.0-16.0); White Blood Count 9.9 X10*3/uL (4.8-10.8)
[2024-02-23] MEDS: ondansetron HCL 4 MG/2 ML VIAL IVPUSH (16:39)
[2024-02-23] MEDS: 0.9 % Sodium Chloride 1,000 ML 999 ML IVCONT (16:39)
[2024-02-23] MEDS: diazePAM 2 MG TABLET PO (16:40)
[2024-02-23] MEDS: Meclizine HCl 25 MG TABLET 50 MG PO (16:40)
[2024-02-23 16:58] LABS: Influenza A PCR NEGATIVE (Negative); Influenza B PCR NEGATIVE (Negative); Resp Syncy Virus RNA Qual PCR NEGATIVE (Negative); SARS COV2 PCR INHOUSE NEGATIVE (Negative)
[2024-02-23 19:13] LABS: Alanine Aminotransferase 20 U/L (0-31); Albumin Level 4.2 g/dL (3.5-5.0); Alkaline Phosphatase 109 U/L (39-117); Anion Gap 15 (12-20); Aspartate Amino Transferase 20 U/L (5-31); Bilirubin Total 0.3 mg/dL (0.0-1.0); Blood Urea Nitrogen 14 mg/dL (9-16); Calcium 9.6 mg/dL (8.4-10.2); Carbon Dioxide 29 mmol/L (22-29); Chloride 106 mmol/L (96-108); Creatinine Clr Calc Pharmacy 103.5; Estimated Glomerular Filt Rate > 60; Glucose Random 122 mg/dL (60-115); Magnesium 2.1 mg/dL (1.6-2.6); Potassium 3.9 mmol/L (3.3-5.1); Sodium 146 mmol/L (135-145); Total Protein 7.6 g/dL (6.5-8.0)
[2024-02-23] MEDS: iohexoL 350 MG/ML 100 ML INFUS..BTL IV (19:59)
[2024-02-23] MEDS: Ketorolac Tromethamine 30 MG/ML VIAL IVPUSH (22:01)
[2024-02-23] MEDS: Metoclopramide HCl 10 MG/2 ML VIAL IVPUSH (22:01)
[2024-02-23 22:48] LABS: Troponin-I High Sensitivity 28.2 ng/L (<3.5-17.0)
[2024-02-24 01:25] VITALS: BP 143/75; PULSE 79; RESP 16; TEMP 36.3; O2SAT 94
== END 2024-02-24 01:26 | disposition home or self-care (01) ==
PROVIDERS: Physician Assistant Medical; Emergency Provider Emergency Medicine; PCP Internal Medicine
DX: R51.9 Headache, unspecified (principal); R11.2 Nausea with vomiting, unspecified; R42 Dizziness and giddiness; Z03.818 Encounter for observation for suspected exposure to other biological agents ruled out; Z79.899 Other long term (current) drug therapy
CPT/HCPCS: 0241U; 36415; 70496; 70498; 80053; 81001; 83735; 84484; 85025; 87086; 93005; 96374; 96375; 99284; 99285; J1885; J2405; J2765; Q9967

== ENCOUNTER → 2024-02-23 16:12 | Outpatient (BNV) | payer OTHER, SELFPAY | PROVIDERS: Emergency Provider Emergency Medicine; PCP Internal Medicine; Visit Provider Internal Medicine | DX: R42 Dizziness and giddiness (principal) | CPT/HCPCS: 93010 ==

== ENCOUNTER 2024-05-26 08:14 | Outpatient (REF) | payer OTHER, SELFPAY ==
[2024-05-26 14:01] LABS: Alanine Aminotransferase 17 U/L (0-31); Albumin Level 4.2 g/dL (3.5-5.0); Alkaline Phosphatase 101 U/L (39-117); Anion Gap 14 (12-20); Aspartate Amino Transferase 28 U/L (5-31); Bilirubin Total 0.4 mg/dL (0.0-1.0); Blood Urea Nitrogen 17 mg/dL (9-16); Calcium 9.8 mg/dL (8.4-10.2); Carbon Dioxide 27 mmol/L (22-29); Chloride 105 mmol/L (96-108); Cholesterol 166 mg/dL (<200); Estimated Glomerular Filt Rate > 60; Glucose Random 71 mg/dL (60-115); HDL Cholesterol 59 mg/dL (>40); LDL Cholesterol Calculated 90 mg/dL (<100); Potassium 3.3 mmol/L (3.3-5.1); Sodium 143 mmol/L (135-145); Total Protein 7.7 g/dL (6.5-8.0); Triglycerides 85 mg/dL (<150)
[2024-05-26 14:17] LABS: Estimated Average Glucose 146 mg/dL; Hemoglobin A1C 282.4021 umol/L; Hemoglobin A1c % 6.7 % (<6.0)
== END 2024-05-26 08:15 | disposition home or self-care (01) ==
LOC: HO.MANLDS 08:14
PROVIDERS: Visit Provider Internal Medicine
DX: E78.00 Pure hypercholesterolemia, unspecified (principal); E11.65 Type 2 diabetes mellitus with hyperglycemia
CPT/HCPCS: 36415; 80053; 80061; 83036

== ENCOUNTER 2024-06-28 08:43 | Day surgery (SDC) | payer OTHER, SELFPAY ==
[2024-06-24 09:11] VITALS: BMI 39.3
--- NOTE | 2024-06-24 13:44 | P.CONAN_ITS ---
Documented by User: Asiya Barraza NP 06/24/24 13:45 HPI - Anesthesia Eval Consult details Narrative: 58yo F for Left Cataract Extraction IOL Insertion No previous cataract on record PMFSH Active Problems Active Problems: All Active Problems Elevated troponin (Acute) COVID-19 (Acute) History of adenomatous polyp of colon (Acute) Depression (Acute) History of PCOS (Acute) HTN (hypertension) (Acute) Sleep apnea (Acute) Obesity (Acute) Diabetes (Acute) Encounter for screening colonoscopy (Acute) Diabetes (Acute) Past Medical History Medical History Superficial incisional surgical site infection (03/08/24) Acute UTI (urinary tract infection) (05/28/23) 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 If so, by whom?: No Advance Directives: No Advance Directives Information Provided: Yes Nutrition Risks: No Nutritional Risk service: No Meds Allergies Allergy/AdvReac Type Severity Reaction Status Date / Time No Known Allergies Allergy Verified 02/23/24 15:39 [No Known Allergies*] Home Medications ?Medication ?Instructions ?Recorded ?Confirmed ?Last Taken ?Type atorvastatin 40 mg tablet 40 mg PO DAILY 10/08/21 06/24/24 06/27/24 History cholecalciferol (vitamin D3) 50 50 mcg PO DAILY 10/08/21 06/24/24 06/27/24 His tory mcg (2,000 unit) capsule duloxetine 60 mg capsule,delayed 60 mg PO 10/08/21 06/27/23 06/27/24 History release (Cymbalta) lisinopril 40 mg tablet 40 mg PO DAILY 10/08/21 06/24/24 06/27/24 History metformin 750 mg tablet,extended 750 mg PO BID 10/08/21 06/24/24 06/27/24 History release 24 hr montelukast 10 mg tablet 10 mg PO DAILY 10/08/21 06/24/24 06/27/24 History albuterol sulfate 90 mcg/actuation 2 puff inhalation Q6H PRN Wheezing 04/16/23 06/24/24 Unknown History aerosol inhaler bupropion HCl 150 mg tablet,12 hr 150 mg PO BID 04/16/23 06/24/24 06/27/24 History sustained-release fluticasone 250 mcg-salmeterol 50 1 ea inhalation BID 04/16/23 06/24/24 06/27/24 History mcg/dose blistr powdr for inhalation (Advair Diskus) fluticasone propionate 50 1 spray intranasal DAILY 06/24/24 06/27/24 History mcg/actuation nasal spray,suspension insulin degludec 200 unit/mL (3 unit subcut BEDTIME 06/24/24 06/27/24 History mL) subcutaneous pen (Tresiba FlexTouch U-200 insulin) insulin lispro 100 unit/mL unit subcut TID 06/24/24 06/27/24 History subcutaneous pen (Humalog KwikPen (U-100) Insulin) melatonin 1 mg tablet mg PO BEDTIME PRN Insomnia 06/24/24 06/27/24 History Exam Height,Weight and Vital Signs: Height 5 ft 2 in Weight 97.522 kg Assessment and Plan Assessment Anesthesia Assessment: Chart Reviewed Documented by User: Olga Gallardo MD 06/28/24 09:42 PMFSH Active Problems Active Problems: All Active Problems Elevated troponin (Acute) COVID-19 (Acute) History of adenomatous polyp of colon (Acute) Depression (Acute) History of PCOS (Acute) HTN (hypertension) (Acute) Sleep apnea (Acute). 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) Osteoarthritis Renal calculi Cataract Depression Elevated cholesterol Diabetes HTN (hypertension) Sleep apnea Asthma Hx of nephrolithotomy with removal of calculi Family History Family History Father Diabetes Afib Family history of problems with anesthesia: No Surgical History Surgical History Hx of colonoscopy (2021) History of ankle surgery Hx of colonoscopy History of Problems with Anesthesia: No Social History Social History Household Members: Spouse Household Members Other:: 2 Housing: House Alcohol intake: never Patient Tobacco Use Status: Never used Tobacco Have you been hit, kicked, punched, or otherwise hurt by someone within the past year? If so, by whom?: No Advance Directives: No Advance Directives Information Provided: Yes Nutrition Risks: No Nutritional Risk service: No Meds Allergies Allergy/AdvReac Type Severity Reaction Status Date / Time No Known Allergies Allergy Verified 02/23/24 15:39 [No Known Allergies*] Home Medications ?Medication ?Instructions ?Recorded ?Confirmed ?Last Taken ?Type atorvastatin 40 mg tablet 40 mg PO DAILY 10/08/21 06/24/24 06/27/24 History cholecalciferol (vitamin D3) 50 50 mcg PO DAILY 10/08/21 06/24/24 06/27/24 History mcg (2,000 unit) capsule duloxetine 60 mg capsule,delayed 60 mg PO 10/08/21 06/27/23 06/27/24 History release (Cymbalta) lisinopril 40 mg tablet 40 mg PO DAILY 10/08/21 06/24/24 06/27/24 History metformin 750 mg tablet,extended 750 mg PO BID 10/08/21 06/24/24 06/27/24 History release 24 hr montelukast 10 mg tablet 10 mg PO DAILY 10/08/21 06/24/24 06/27/24 History albuterol sulfate 90 mcg/actuation 2 puff inhalation Q6H PRN Wheezing 04/16/23 06/24/24 Unknown History aerosol inhaler bupropion HCl 150 mg tablet,12 hr 150 mg PO BID 04/16/23 06/24/24 06/27/24 History sustained-release fluticasone 250 mcg-salmeterol 50 1 ea inhalation BID 04/16/23 06/24/24 06/27/24 History mcg/dose blistr powdr for inhalation (Advair Diskus) fluticasone propionate 50 1 spray intranasal DAILY 06/24/24 06/27/24 History mcg/actuation nasal spray,suspension insulin degludec 200 unit/mL (3 unit subcut BEDTIME 06/24/24 06/27/24 History mL) subcutaneous pen (Tresiba FlexTouch U-200 insulin) insulin lispro 100 unit/mL unit subcut TID 06/24/24 06/27/24 History subcutaneous pen (Humalog KwikPen (U-100) Insulin) melatonin 1 mg tablet mg PO BEDTIME PRN Insomnia 06/24/24 06/27/24 History Exam Height,Weight and Vital Signs: Height 5 ft 2 in Weight 97.522 kg Vital Signs Temp Pulse Resp BP Pulse Ox O2 Del Method 06/28/24 09:03 98.5 F 72 19 163/76 H 96 Room Air Pertinent Lab Results Pertinent Lab Results: Lab Results 06/28/24 Range/Units 09:14 POC Glucose 85 (60-115) mg/dL Airway Mallampati Class: III TM Dist: >3cm Neck ROM: Full Loose/Missing/Broken Teeth: Yes (Molars extracted. Denies broken or loose teeth) Heart: RRR Lungs: CTAB Assessment and Plan Assessment Anesthesia Assessment: Anesthesia Plan Discussed and Chart Reviewed Final Anesthetic Review Family History of Problems with Anesthesia: No History of Problems with Anesthesia: No NPO: Yes ASA Class: III Final Preanesthetic Review: No Changes in Pt Med Stat, Meds/Allgs Chart Reviewed, Consent Obtained/Reviewed and Anes Risks/Benef Reviewed Patient Risk: Intermediate Procedure Risk: Low Assessment/Block/Sedation in SS: Assess/Block/Sedation-SS Anesthetic Plan Anesthetic Plan: MAC: Disposition: Standard PACU
--- OUTSIDE RECORDS SUMMARY | 2024-06-28 08:52 | XMS_ITS | Data Portability ---
Author Organization [facility] Address [address] [place] [address] Assessment Encounter Date Assessment Date Assessment LastModified by Organization Details LastModified Time 04/11/2023 04/11/2023 [id number] [place] [id number] (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) [facility] MODERATE MUST MEET 2 OUT OF 3 ELEMENTS: PROBLEMS, DATA OR RISK ELEMENT 1: PROBLEMS ADDRESSED 1 OR MORE CHRONIC ILLNESS WITH EXACERBATION OR 2 OR MORE STABLE CHRONIC ILLNESSES OR 1 UNDIAGNOSED NEW PROBLEM OR 1 ACUTE ILLNESS W/SYMPTOMS OR 1 ACUTE COMPLICATED INJURY ELEMENT 2: DATA MUST MEET 1 OF 3 CATEGORIES CATEGORY 1: REVIEW OF PRIOR EXTERNAL NOTES, REVIEW OF RESULTS, ORDERING OF EACH TEST, ASSESSMENT REQUIRING INDEPENDENT HISTORIAN OR CATEGORY 2: INDEPENDENT INTERPRETATION OF TESTS BY ANOTHER PHYSICIAN OR SPECIALIST OR CATEGORY 3: DISCUSSION OF MGT OR TEST INTERPRETATION W/EXTERNAL PHYSICIAN OR SPECIALIST ELEMENT 3: RISK RISK OF COMPLICATIONS AND/OR MORBIDITY OR MORTALITY OF PATIENT MANAGEMENT PROVIDER MUST THOROUGHLY DOCUMENT EACH ELEMENT THAT IS COVERED Not available 04/11/2023 09:08:31 07/02/2023 07/02/2023 [id number] [place] [id number] (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) [facility] MODERATE MUST MEET 2 OUT OF 3 ELEMENTS: PROBLEMS, DATA OR RISK ELEMENT 1: PROBLEMS ADDRESSED 1 OR MORE CHRONIC ILLNESS WITH EXACERBATION OR 2 OR MORE STABLE CHRONIC ILLNESSES OR 1 UNDIAGNOSED NEW PROBLEM OR 1 ACUTE ILLNESS W/SYMPTOMS OR 1 ACUTE COMPLICATED INJURY ELEMENT 2: DATA MUST MEET 1 OF 3 CATEGORIES CATEGORY 1: REVIEW OF PRIOR EXTERNAL NOTES, REVIEW OF RESULTS, ORDERING OF EACH TEST, ASSESSMENT REQUIRING INDEPENDENT HISTORIAN OR CATEGORY 2: INDEPENDENT INTERPRETATION OF TESTS BY ANOTHER PHYSICIAN OR SPECIALIST OR CATEGORY 3: DISCUSSION OF MGT OR TEST INTERPRETATION W/EXTERNAL PHYSICIAN OR SPECIALIST ELEMENT 3: RISK RISK OF COMPLICATIONS AND/OR MORBIDITY OR MORTALITY OF PATIENT MANAGEMENT PROVIDER MUST THOROUGHLY DOCUMENT EACH ELEMENT THAT IS COVERED Not available 07/02/2023 11:11:30 09/24/2023 09/24/2023 [id number] [place] [id number] (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) MDM MODERATE MUST MEET 2 OUT OF 3 ELEMENTS: PROBLEMS, DATA OR RISK ELEMENT 1: PROBLEMS ADDRESSED 1 OR MORE CHRONIC ILLNESS WITH EXACERBATION OR 2 OR MORE STABLE CHRONIC ILLNESSES OR 1 UNDIAGNOSED NEW PROBLEM OR 1 ACUTE ILLNESS W/SYMPTOMS OR 1 ACUTE COMPLICATED INJURY ELEMENT 2: DATA MUST MEET 1 OF 3 CATEGORIES CATEGORY 1: REVIEW OF PRIOR EXTERNAL NOTES, REVIEW OF RESULTS, ORDERING OF EACH TEST, ASSESSMENT REQUIRING INDEPENDENT HISTORIAN OR CATEGORY 2: INDEPENDENT INTERPRETATION OF TESTS BY ANOTHER PHYSICIAN OR SPECIALIST OR CATEGORY 3: DISCUSSION OF MGT OR TEST INTERPRETATION W/EXTERNAL PHYSICIAN OR SPECIALIST ELEMENT 3: RISK RISK OF COMPLICATIONS AND/OR MORBIDITY OR MORTALITY OF PATIENT MANAGEMENT PROVIDER MUST THOROUGHLY DOCUMENT EACH ELEMENT THAT IS COVERED Not available 09/24/2023 11:22:37 05/31/2024 05/31/2024 . Not available 05/14 14:58:40 Plan of Treatment Reminders Order Date Submit Date Provider Last Modified By Organization Details Last Modified Time Details Appointments FOLLOW UP 15 2024 01:30P M DR PARK Not available Not available Not available Lab HbA1c (hemoglob in A1c), blood 2022 023 [facility], [place], [address], 04/11/2023 14:26:37 HbA1c (hemoglob in A1c), blood 2022 023 CHAI [email or web address], [place], [address], 08/25/2023 11:17:46 HbA1c (hemoglob in A1c), blood 2023 024 [email or web address], [place], [address], 09/24/2023 11:19:42 HbA1c (hemoglob in A1c), blood 2023 024 [facility], [place], [address], 09/24/2023 11:35:58 CMP, serum or plasma 2023 024 [email or web address], [place], [address], 05/27/2024 14:21:27 CBC w/ auto diff 2023 024 [facility], [place], [address], 11/25/2023 09:27:41 lipid panel, blood 2023 024 [facility], [place], [address], 09/24/2023 11:35:58 Referral urologist referral 2022 023 [email or web address] 10 Brien Christie MD, [address] [place] [address], [address], 07/04/2023 09:16:44 Procedures None recorded. Surgeries None recorded. Imaging None recorded. Medication Orders metformin ER 750 mg tablet,ex tended release 24 hr 2022 023 [facility], [place], [address], 04/11/2023 09:18:05 Tresiba FlexTouch U-200 insulin 200 unit/mL (3 mL) subcutane ous pen 2022 023 [facility] [place], [address], 04/11/2023 09:18:01 atorvasta tin 40 mg tablet 2022 023 [facility] [place], [address], 04/11/2023 09:18:04 Advair Diskus 250 mcg-50 mcg/dose powder for inhalatio n 2022 023 [facility] [place], [address], 04/11/2023 09:18:07 albuterol sulfate HFA 90 mcg/actua tion aerosol inhaler 2022 023 [facility] [place], [address], 04/11/2023 09:18:[address] 10 mg tablet 2022 023 [facility] [place], [address], 04/11/2023 09:18:09 Humalog KwikPen (U-100) Insulin 100 unit/mL subcutane ous 2022 023 [facility] [place], [address], 04/11/2023 09:18:03 amlodipin e 5 mg tablet 2022 [email or web address] [place] [address], 05/28/2023 13:47:01 lisinopri l 40 mg tablet 2022 023 [facility] [place], [address], 04/11/2023 09:18:06 bupropion HCl SR 150 mg tablet,12 hr sustained -release 2022 023 [facility] [place], [address], 04/11/2023 09:18:07 duloxetin e 60 mg capsule,d elayed release 2022 023 [facility], [facility], [place], [address], 04/11/2023 09:18:04 mupirocin 2 % topical ointment 2023 024 [id number], [address] [facility], [place], [address], 03/08/2024 10:24:33 Patient TargetsNo targets recorded. Patient Instructions Encounter Date Encounter Id Patient Instructions Last Modified By Organization Details Last Modified Time 04/11/2023 [id number] pulse oximetry* CHAI Not available 04/11/2023 11:07:11 03/08/2024 [id number] pulse oximetry* henrryda Not available 03/08/2024 10:24:16 Reason for Referral Urologist Referral for Kidne y stone Referring Physician: Steve Park, Internal Medicine, Encounter Date: 07/02/2023 Results Created Date Observation Date Name Description Value Unit Range Abnormal Flag Note LastModifiedBy Organization Detail LastModifiedTime 04/11/2004/11/2023 pulse oxime try* Result 98% Not Available [facility] [address] [facility] [address], [place], [address], 04/08/2023 09:50:43 03/08/20 24 03/08/2024 pulse oxime try* Result 99 Not Available [facility] [address] [facility] [place], [address], 03/03/2024 13:50:05 04/12/20 23 04/12/2023 LDXR, hip, bilat eral, 2 view No observ ation record ed. [facility] [place] [address] (Medical Records) [address] [facility], [place], [address], 07/02/2023 11:00:33 04/16/20 23 04/16/2023 XR, chest , 2 view No observ ation record ed. [address] (Medical Records) [address] [place], [address], 07/02/2023 11:00:33 06/27/20 23 06/16/2023 nucle ar stres s test No observ ation record ed. [address] (Medical Records) [address] [place], [address], 07/02/2023 11:00:33 06/30/20 23 06/30/2023 CT, abdom en + pelvi s, w/o contr ast No observ ation record ed. [address] (Medical Records) [address] [place], [address], 07/02/2023 11:00:33 11/05/19 24 10/31/2023 CT, adren al, w/ wo contr ast No observ ation record ed. [email or web address] Not Available 2023 12:23:58 02/23/20 24 02/23/2024 CT, angio gram, head + neck, w/wo contr ast No observ ation record ed. [email or web address] [place] [address] (Medical Records) [address] [place], [address], 02/24/2024 08:47:31 Result Notes None recorded. Problems Name Problem SNOMED Code Status Onset Date Resolution Date Notes Provider Name and Address Organization Details Recorded Time Asthma 404988433 Active 2018 Not Available [facility] 4 08:07:40 Type 2 diabetes mellitus 05102830 Active 2018 Not Available [facility] 4 08:07:40 Hyperchole sterolemia 19767430 Active 2018 Not Available [facility] 4 08:07:39 Depressive disorder 32264129 Active 2018 Not Available [facility] 4 08:07:40 Hypertensi ve disorder 96608706 Active 2018 Not Available [facility] 4 08:07:40 Sleep apnea 87941959 Active 2018 Not Available [facility] 4 08:07:40 Polycystic ovary 149340724 Active 2018 Not Available [facility] 4 08:07:40 Morbid obesity 293908144 Active 2018 Not Available [facility] 4 08:07:40 Osteoarthr itis of knee 438296038 Active 2018 Not Available [facility] 4 08:07:40 Dysuria 57826986 Active 2022 Not Available [facility] 4 08:07:40 Acute urinary tract infection 043957378 Active 2022 Not Available [facility] 4 08:07:40 Kidney stone 63038911 Active 2022 Not Available [facility] 4 08:07:40 Superficia l incisional surgical site infection 954758694 Active 2023 DO Ethan [place], [address] , [facility] 4 10:22:49 Oncocytoma of right kidney 7520183135791 107 Active 2023 DO Ethan [place], [address] , [facility] 4 22:41:46 Problem Notes None recorded. Procedures Surgical History Date Name Laterality Status Provider Name and Address Organization Details Recorded Time 2 Colonoscopy completed DO Ethan Ash[place], [address], [facility] 12/27/2021 08:14:44 Imaging Results Imaging Date Name Status LastModified by Organiz ation Details LastModified Time 04/12/2023 LDXR, hip, bilateral, [address] (Medical Records) [address] [place] [address], [address], 07/02/2023 11:00:33 04/16/2023 XR, chest, [address] view [address] (Medical Records) [address] [place], [address], 07/02/2023 11:00:33 06/16/2023 nuclear stress test completed [address] (Medical Records) [address] [place], [address], 07/02/2023 11:00:33 06/30/2023 CT, abdomen + pelvis, w/o contrast completed [address] (Medical Records) [address] [place], [address], 07/02/2023 11:00:33 10/31/2023 CT, adrenal, w/ wo contrast completed [email or web address] Information not available 11/05/2023 12:23:58 02/23/2024 CT, angiogram, head + neck, w/wo contrast completed [email or web address] (Medical Records) [address] [place], [address], 02/24/2024 08:47:31 Procedure Notes None recorded. Medical Equipment None Reported. Allergies No known drug allergies Medications Name Sig Start Date Stop Date Status Note LastModified by Organization Details LastModified Time celecoxib 200 mg capsule 02/08 completed Not Available Not Available Not Available amoxicillin 500 mg capsule TAKE 4 CAPSULES BY MOUTH 1 HOUR PRIOR TO PROCEDURE active Not Available Not Available No t Available atorvastati n 40 mg tablet TAKE 1 TABLET DAILY active Not Available Not Available No t Available bupropion HCl SR 150 mg tablet,12 hr sustained-r elease Take 1 tablet twice a day by oral route for 90 days. active Not Available Not Available No t Available doxycycline hyclate 100 mg capsule 02/08 completed Not Available Not Available Not Available meclizine 50 mg tablet TAKE 1 TABLET BY MOUTH 2 TIMES A DAY NEEDED FOR DIZZINESS active Not Available Not Available No t Available cefpodoxime 200 mg tablet TAKE 1 TABLET (200 MG TOTAL) BY MOUTH EVERY 12 (TWELVE) HOURS FOR 7 DAYS. active Not Available Not Available No t Available meloxicam 15 mg tablet TAKE 1 TABLET EVERY DAY BY ORAL ROUTE WITH MEALS FOR 14 DAYS. 04/11 completed Not Available Not Available Not Available ibuprofen 200 mg capsule Take 1 capsule every 6 hours by oral route. active Not Available Not Available No t Available lisinopril 20 mg tablet 06/07 completed Not Available Not Available Not Available prednisone 20 mg tablet TAKE 2 TABLETS BY MOUTH DAILY 04/11 completed Not Available Not Available Not Available amlodipine 5 mg tablet Take 1 tablet every day by oral route for 90 days. 05/28 completed Not Available Not Available Not Available ciprofloxac in 500 mg tablet Take 1 tablet every 12 hours by oral route for 7 days. 06/12 completed Not Available Not Available Not Available sulfamethox azole 800 mg-trimetho prim 160 mg tablet TAKE 1 TABLET BY MOUTH EVERY 12 HOURS FOR 10 DAYS active Not Available Not Available No t Available meloxicam 7.5 mg tablet 06/07 completed Not Available Not Available Not Available oxycodone-a cetaminophe n 5 mg-325 mg tablet TAKE 1 TABLET BY MOUTH EVERY 6 HOURS NEEDED FOR PAIN active Not Available Not Available No t Available aspirin 325 mg tablet,makayla yed release 02/08 completed Not Available Not Available Not Available amlodipine 10 mg tablet TAKE 1 TABLET BY MOUTH EVERY DAY active Not Available Not Available No t Available benzonatate 100 mg capsule TAKE 1 TABLET BY MOUTH 3 TIMES A DAY NEEDED FOR COUGH 04/11 completed Not Available Not Available Not Available cephalexin 500 mg capsule TAKE 1 CAPSULE BY MOUTH TWICE A DAY active Not Available Not Available No t Available pantoprazol e 40 mg tablet,makayla yed release 02/08 completed Not Available Not Available Not Available metformin 1,000 mg tablet Take 1 tablet twice a day by oral route. 09/12 completed Not Available Not Available Not Available Advair Diskus 250 mcg-50 mcg/dose powder for inhalation Inhale 1 puff twice a day by inhalatio n route for 90 days. active Not Available Not Available No t Available Advair Diskus 500 mcg-50 mcg/dose powder for inhalation inhale 1 puff twice a day 03/03 completed Not Available Not Available Not Available hydrocodone -homatropin e 5 mg-1.5 mg/5 mL oral syrup TAKE 5 ML BY MOUTH EVERY 4 TO 6 HOURS NEEDED FOR COUGH 04/11 completed Not Available Not Available Not Available docusate sodium 100 mg capsule 02/08 completed Not Available Not Available Not Available Tylenol 325 mg tablet Take 2 tablets every 8 hours by oral route as needed. 12/25 completed Not Available Not Available Not Available montelukast 10 mg tablet Take 1 tablet every day by oral route for 90 days. active Not Available Not Available No t Available acetaminoph en 300 mg-codeine 60 mg tablet TAKE 1 TABLET BY MOUTH EVERY 4 HOURS NEEDED FOR PAIN active Not Available Not Available No t Available mupirocin 2 % topical ointment APPLY A SMALL AMOUNT TO AFFECTED AREA 3 TIMES A DAY active Not Available Not Available No t Available polyethylen e glycol 3350 17 gram/dose oral powder TAKE DIRECTED BY MOUTH THE DAY BEFORE YOUR PROCEDURE . 04/11 completed Not Available Not Available Not Available albuterol sulfate HFA 90 mcg/actuati on aerosol inhaler Inhale 2 puffs every 4 hours by inhalatio n route as needed for 30 days. active Not Available Not Available No t Available morphine 15 mg immediate release tablet TAKE 1 TABLET BY MOUTH 3 TIMES A DAY NEEDED FOR PAIN active Not Available Not Available No t Available lisinopril 40 mg tablet TAKE 1 TABLET BY MOUTH EVERY DAY active Not Available Not Available No t Available ondansetron 4 mg disintegrat ing tablet TAKE 1 TABLET BY MOUTH EVERY 8 HOURS NEEDED FOR NAUSEA/VO MITING *MUST LAST 21 DAYS* active Not Available Not Available No t Available doxycycline hyclate 100 mg tablet TAKE 1 TABLET BY MOUTH TWICE A DAY FOR 5 DAYS 04/01 completed Not Available Not Available Not Available Cartia XT 180 mg capsule,ext ended release Take by oral route for 90 days. 06/07 completed Not Available Not Available Not Available Laxative (bisacodyl) 5 mg tablet,makayla yed release COLONOSCO PY PREP TAKE 2 TABLETS BY MOUTH AT 12:00PM THE DAY BEFORE YOUR PROCEDURE . 04/01 completed Not Available Not Available Not Available Novolog FlexPen U-100 Insulin aspart 100 unit/mL (3 mL) subcutaneou s sliding scale with meals 10 or more units depending on blood sugar 04/11 completed Not Available Not Available Not Available metformin ER 750 mg tablet,exte nded release 24 hr TAKE 1 TABLET BY MOUTH TWICE A DAY active Not Available Not Available No t Available duloxetine 30 mg capsule,del ayed release TAKE 1 CAPSULE DAILY 04/01 completed Not Available Not Available Not Available duloxetine 60 mg capsule,del ayed release Take 1 capsule every day by oral route for 90 days. active Not Available Not Available No t Available BD Ultra-Fine Mini Pen Needle 31 gauge x 3/16 active Not Available Not Available Not Available metformin ER 1,000 mg tablet,exte nded release 24 hr Take 1 tablet twice a day by oral route for 30 days. 09/12 completed Not Available Not Available Not Available melatonin at bedtime active Not Available Not Available No t Available Flonase prn active Not Available Not Avail able Not Available Advil PRN 06/12 completed Not Available Not Available Not Available Vitamin D3 2,000 units daily active Not Available Not Available No t Available Metamucil prn active Not Available Not Valery ilable Not Available multivitami n once daily active Not Available Not Available No t Available BD Ultra-Fine Short Pen Needle 31 gauge x 5/16 active Not Available Not Available Not Available Glucos Chond Cplx Advanced daily 02/08 completed Not Available Not Available Not Available Humalog KwikPen (U-100) Insulin 100 unit/mL subcutaneou s Inject up to 10 units per sliding scale with meals maximum 30 units per day 2023 active Not Available Not Available Not Avai lable metformin ER 1,000 mg 24 hr tablet,exte nded release (gastric reten.) take 1 tablet by mouth twice a day 10/21 completed Not Available Not Available Not Available Trulicity 1.5 mg/0.5 mL subcutaneou s pen injector INJECT 0.5 ML EVERY WEEK BY SUBCUTANE OUS ROUTE FOR 30 DAYS. 12/25 completed Not Available Not Available Not Available Trulicity 0.75 mg/0.5 mL subcutaneou s pen injector Inject 0.5 mL every week by subcutane ous route for 30 days. 04/01 completed Not Available Not Available Not Available Tresiba FlexTouch U-200 insulin 200 unit/mL (3 mL) subcutaneou s pen Inject 60 units every day by sub-q route for 90 days. 2023 active Not Available Not Available Not Avai lable Dexcom G6 Sensor device USE DIRECTED active Not Available Not Available No t Available Dexcom G6 Manager Portable 2023 active Not Available Not Available Not Avai lable Dexcom G6 Transmitter device USE DIRECTED active Not Available Not Available No t Available FreeStyle Anirudh 14 Day Sensor kit apply every 14 days 03/08 completed Not Available Not Available Not Available FreeStyle Anirudh 2 Josephine USE DIRECTED 04/11 completed Not Available Not Available Not Available Vitals Date Recorded Body height Body mass index (BMI) Body weight Heart rate Oxygen saturation Oxygen saturation in Arterial blood by Pulse oximetry Systolic blood pressure Diastolic blood pressure Provider Name and Address Organization Details Last Updated DateTime 3 157.48 cm 40.4 kg/m2 864565. 91 g 88 /min 98 % 98 % 162 mm[Hg] 82 mm[Hg] Steve Park DO [address] [place], [address] [place] [address] Internal Medicine 3 08:55:36 Date Recorded Body height Body mass index (BMI) Body weight Heart rate Oxygen saturation Oxygen saturation in Arterial blood by Pulse oximetry Systolic blood pressure Diastolic blood pressure Provider Name and Address Organization Details Last Updated DateTime 4 157.48 cm 39.3 kg/m2 13975.3 6 g 72 /min 99 % 99 % 130 mm[Hg] 82 mm[Hg] David Kapoor [facility] 4 10:05:08 Date Recorded Body height Body mass index (BMI) Body weight Heart rate Oxygen saturation Oxygen saturation in Arterial blood by Pulse oximetry Systolic blood pressure Diastolic blood pressure Provider Name and Address Organization Details Last Updated DateTime 4 157.48 cm 39.3 kg/m2 77839.3 6 g 92 /min 98 % 98 % 132 mm[Hg] 76 mm[Hg] Tonya Ramirez [facility] Internal [facility] 4 14:46:00 Social History Question Answer Notes LastModified by Organizat ion Details LastModified Time Tobacco Smoking Status Never Smoker Steve Park DO [address] [place], [address], [facility] 06/07/2019 14:22:09 What Was The Date Of Your Most Recent Tobacco Screening? 05/31/2024 [email or web address] Information not available 05/31/2024 Do You Or Have You Ever Used Any Other Forms Of Tobacco Or Nicotine? No Information not available 01/10/2023 Sex: Unknown Functional Status None recorded. Mental Status None recorded. Family History Nothing Reported. Medical History No medical history recorded. Gynecological HistoryNo gynecological history recorded. Obstetrics History GPAL:G 0 P 0 0 0 0 Immunizations Vaccine Type Date Status Note Provider Nam e and Address Organization Details Recorded Time SARS-COV-2 (COVID-19) vaccine, UNSPECIFIED 4 completed Steve Park DO [address] [place] [address], [address], [facility] 03/19/2024 06:51:20 MMR 4 completed Santos cub[place], [facility] 06/07/2024 09:27:23 varicella 4 completed Santos cub[place], [facility] 06/07/2024 09:27:40 pneumococcal polysaccharide PPV23 5 completed Not Available [facility] 07/02/2021 22:52:48 Tdap 1 completed Not Available [facility] 07/02/2021 22:52:48 COVID-19, mRNA, LNP-S, PF, 100 mcg/0.5mL dose or 50 mcg/0.25mL dose 1 completed Not Available [facility] 07/02/2021 22:52:48 COVID-19, mRNA, LNP-S, PF, 100 mcg/0.5mL dose or 50 mcg/0.25mL dose 1 completed Not Available [facility] 07/02/2021 22:52:48 Past Encounters Encounter ID Performer Location Encounter Start Date Encounter Closed Date Diagnosis/Indication Diagnosis SNOMED-CT Code Diagnosis ICD10 Code [id number] Steve Park DO [facility] [address] [facility] [address] 06/07/2019 13:41:13 06/07/2019 15:04:11 Asthma 320545463 J45.909 Essential hypertension 04980116 I10 Type 2 pat betes mellitus 70069699 E11.9 Sleep apnea 39624480 G47 .30 Hypertensive disorder 38 256426 I10 Depressive disorder 3548 9007 F32.9 Hypercholesterolemia 136 21709 E78.00 Osteoarthr itis of knee 178094037 M17.9 [id number] Steve Park DO [address] [address] 07/19/2019 11:34:24 07/19/2019 12:31:42 Asthma 556283020 J45.909 Morbid obesity 615964705 E66.01 Type 2 pat betes mellitus 15725127 E11.9 Osteoarthr itis of knee 020635700 M17.9 Sleep apnea 12105217 G47 .30 Hypercholesterolemia 136 79518 E78.00 [id number] B[address]TE Cortez [address] [address] 07/21/2019 14:52:31 07/21/2019 16:06:44 Pre-surgery evaluation 777331458 Z01.818 Cataract 418493845 H26.9 Asthma 325030315 J45.90 9 Type 2 pat betes mellitus 03424001 E11.65 Sleep apnea 16592662 G47 .30 Essential hypertension 77221969 I10 [id number] Steve Park DO [address] [address] 09/13/2019 10:53:07 09/13/2019 11:31:41 Type 2 diabetes mellitus 76439983 E11.9 Osteoarthr itis of knee 931782224 M17.9 [id number] Steve Park DO [address] [address] 02/09/2020 14:10:46 02/09/2020 14:53:00 Hypercholesterolemia 82676911 E78.00 Depressive disorder 3548 9007 F32.9 Type 2 pat betes mellitus 92828032 E11.9 Asthma 274914191 J45.90 9 Hypertensive disorder 38 595723 I10 [id number] BOYD CHAIREZ [address] [address] 03/03/2020 15:59:50 03/03/2020 16:43:28 Dysuria 12855986 R30.9 History of calculus of kidney 911191216 Z87.442 [id number] Steve Park DO [address] [address] 06/12/2020 14:00:57 06/12/2020 15:26:52 Asthma 238655381 J45.909 Hypertensive disorder 38 708380 I10 Type 2 pat betes mellitus 63571644 E11.9 Hypercholesterolemia 136 76803 E78.00 [id number] Steve Park DO [address] [address] 07/17/2020 13:36:05 07/17/2020 14:51:04 Asthma 183046616 J45.909 Hypertensive disorder 38 089619 I10 Type 2 pat betes mellitus 21945219 E11.9 Morbid obesity 962125876 E66.01 [id number] Steve Park DO [address] [address] 09/18/2020 10:42:11 09/18/2020 11:57:05 Asthma 178953205 J45.909 Hypertensive disorder 38 876222 I10 Type 2 pat betes mellitus 77837728 E11.9 Sleep apnea 66723504 G47 .30 Depressive disorder 3548 9007 F32.9 [id number] Steve Park DO [address] [address] 12/25/2020 10:51:57 12/25/2020 11:45:33 Type 2 diabetes mellitus 76227880 E11.9 Hypertensive disorder 38 375293 I10 Hypercholesterolemia 136 53184 E78.00 Asthma 456248160 J45.90 9 Sleep apnea 57159461 G47 .30 [id number] BOYD CHAIREZ [address] [address] 02/19/2021 15:35:50 02/19/2021 16:20:08 Asthma 705478680 J45.20 Pain in right knee 32691 62083 31771 M25.561 Chondromal acia of right patella 2706691906 4408950 M22.41 Jimenez injury 558854138 S8 9.91XA Cellulitis 143108896 L03 .90 [id number] Steve Park DO [address] [address] 03/05/2021 11:55:23 03/05/2021 12:40:39 Type 2 diabetes mellitus 17811213 E11.9 Hypertensive disorder 38 768779 I10 Asthma 135765275 J45.90 9 Osteoarthr itis of knee 611405235 M17.9 Onychomyco sis of toenails 907490889 B35.1 [id number] Steve Park DO [address] [address] 06/25/2021 08:22:42 06/25/2021 13:29:23 Type 2 diabetes mellitus 01181509 E11.65 Hypertensive disorder 38 795535 I10 Asthma 824370738 J45.90 9 Adenomatou s polyp of colon 146093266 D12.6 Depressive disorder 3548 9007 F32.9 [id number] Steve Park DO [address] [address] 08/13/2021 08:16:08 08/13/2021 14:05:07 Hypertensive disorder 02148262 I10 Type 2 pat betes mellitus 46174493 E11.65 Asthma 578673397 J45.90 9 Morbid obesity 519323124 E66.01 [id number] Steve Park DO [address] [address] 04/01/2022 12:03:00 04/01/2022 13:10:53 Type 2 diabetes mellitus 23934117 E11.65 Depressive disorder 3548 9007 F32.9 History of left total knee replacement 6799379503 742625 Z96.652 [id number] Steve Park DO [address] [address] 10/02/2022 14:23:07 10/02/2022 15:53:54 Hypertensive disorder 23640539 I10 Type 2 pat betes mellitus 09987047 E11.65 Sleep apnea 99504525 G47 .30 Asthma 930474511 J45.90 9 Morbid obesity 165335288 E66.01 Screening mammography 24 980393 Z12.31 Depressive disorder 3548 9007 F32.9 [id number] Steve Park DO [address] [address] 01/10/2023 08:42:01 01/10/2023 10:02:11 Hypercholesterolemia 56278914 E78.00 Asthma 006333880 J45.90 9 Hypertensive disorder 38 298209 I10 Type 2 pat betes mellitus 49947420 E11.65 Sleep apnea 82055340 G47 .30 Screening mammography 24 318964 Z12.31 [id number] Steve Park DO [address] [address] 04/11/2023 08:50:54 04/11/2023 13:24:32 Asthma 466969859 J45.909 Hypertensive disorder 38 378222 I10 Type 2 pat betes mellitus 60299336 E11.65 Essential hypertension 98291596 I10 Hypercholesterolemia 136 35929 E78.00 Depressive disorder 3548 9007 F32.9 Type 2 pat betes mellitus without complication 104324988 E11.9 [id number] Steve Park DO [address] [address] 07/02/2023 09:04:35 07/02/2023 14:53:40 Kidney stone 50564082 N20.0 Hypertensive disorder 38 772306 I10 Type 2 pat betes mellitus 75076648 E11.65 [id number] Steve Park DO [address] [address] 09/24/2023 08:04:21 09/24/2023 12:00:02 Asthma 126471296 J45.909 Hypercholesterolemia 136 06148 E78.00 Hypertensive disorder 38 170408 I10 Type 2 pat betes mellitus 74570927 E11.65 [id number] Steve Park DO [address] [address] 03/08/2024 09:50:42 03/08/2024 10:29:19 Asthma 364641818 J45.909 Hypercholesterolemia 136 03110 E78.00 Hypertensive disorder 38 579160 I10 Type 2 pat betes mellitus 10675040 E11.65 Depression screening 171 179869 Z13.31 Superficia l incisional surgical site infection 360610540 T81.41XA [id number] DO CHRISSY Ashford [address] [place] [address] 05/31/2024 14:29:28 05/31/2024 16:41:44 Pre-surgery evaluation 225576471 Z01.818 Health Concerns Section Related Observation LastModified by Organization Detai ls LastModified Time None Recorded Concern Status LastModified by Organization Details LastModified Time None Recorded Advance Directives Directive None Recorded Payers Encounter Date Sequence Insurance Name Policy Number Policy Mathis Covered Member ID Mathis Member ID Guarantor Name 04/11/2023 1 [employer] ([employer] [id number] 1 [place] M [place] [id number] Rosa M [place] 07/02/2023 1 [employer] [place] [id number] Rosa M [place] [id number] Rosa M [place] 09/24/2023 1 [employer]) [id number] 1 Rosa M [place] [id number] Rosa M [place] 03/08/2024 1 [employer] [id number] 1 Rosa M [place] [id number] Rosa M [place] 05/31/2024 1 [employer]) [id number] 1 Rosa M [place] [id number] Rosa M [place] Notes Date Note Type Note Provider Name and Address Organization Details Recorded Time 3 text/html Care Management - DiabetesReported bypatient.Self Care:seeing eye doctor yearly for dilated eye exam; checking feet regularly; normal range of home blood sugars (in the low 100s); no side effects from medications Associated Symptoms:symptoms are usually well controlled; no fatigue; no dizziness; no excessive sweating; no headaches; no confusion; no increased thirst; no increased appetite; no increased urination; no blurred vision; no numbness of feet; no calluses on feetCare Management - HypertensionReported bypatient.Self Care:not under emotional stress Severity:symptoms are improving; does not interfere with daily activities Associated Symptoms:no dizziness; no lightheadedness; no chest pain; no shortness of breath; no palpitations; no edema; no calf muscle cramps; no blurred vision; no confusion; no headaches; no fatigue here for rechkstates she is about the same stressed 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 [employer] Steve Johnston Dee, DO [address] [place], [address], [facility] 04/11/2023 09:18:32 3 text/html patient is evaluated via tele/video assessment per patient consentduring current pandemic pt relates she has the flu bc she had eval for right flank painseen at ER and told her that she had the flu and also had a 4mm renal calculusshe has had a kidney stone 15 yrs ago Steve AndersonWiliam Park, DO [address] [facility],[place], [address], [facility] 07/02/2023 13:47:27 4 text/html Care Management - DiabetesReported bypatient.Prognosis:expec adriano outcome: improve; prognosis: moderate Self Care:frequency of blood glucose monitoring: average of 4 times per day; hemoglobin A1C goal: <7.5; LDL levels have been: ; hemoglobin A1C levels have been: >9Care Management - HypertensionReported bypatient.Self Care:not under emotional stress Severity:symptoms are improving; does not interfere with daily activities Associated Symptoms:no dizziness; no lightheadedness; no chest pain; no shortness of breath; no palpitations; no edema; no calf muscle cramps; no blurred vision; no confusion; no headaches; no fatigue patient is evaluated via tele/video assessment per patient consentduring current pandemic relates had her stent out had a resultant uti and is on abx still has been waiting for her dexcom transmitters to come in and has had to fight with [id number] is awful 11.3 she states has lost some weight she is up to 70 units of tresibarelates only taking 10 units with meals prob not enough and she is not taking insulin at lunch that her boss was not letting her keep at work in [employer] Steve Park, DO [address] [facility],[address], [place], [address], [facility] 09/24/2023 11:34:50 4 text/html a1c 7.8 !!!just had her surgery and [facility] well[facility] Steve Park, DO [address] [facility],[address], [place], [address], [facility] 03/08/2024 10:26:18 4 text/html here for pre op eval for cataract geting OS done Steve Park, [address] [facility],[address], [place], [address], [facility] 05/31/2024 15:02:56 OBGyn Episode No OBEpisode recorded.
--- OUTSIDE RECORDS SUMMARY | 2024-06-28 08:52 | XMS_ITS | Continuity of Care Document ---
Author Organization [facility] ([facility], [facility] AD[address]ESS Address [address] [place] [address] Assessment Encounter Date Assessment Date Assessment LastModified by Organization Details LastModified Time 05/31/2024 05/31/2024 . Not available 05/14 14:58:40 Plan of Treatment Reminders Order Date Submit Date Provider Last Modified By Organization Details Last Modified Time Details Appointments FOLLOW UP 15 2024 01:30P M DR PARK Not available Not available Not available Lab None recorded . Referral None recorded . Procedures None recorded . Surgeries None recorded . Imaging None recorded . Medication Orders None recorded . Patient TargetsNo targets recorded. Patient InstructionsNo instructions recorded. Reason for Referral None Reported. Problems Name Problem SNOMED Code Status Onset Date Resolution Date Notes Provider Name and Address Organization Details Recorded Time Asthma 295855732 Active 2018 Not Available [facility] 4 08:07:40 Type 2 diabetes mellitus 51156540 Active 2018 Not Available [facility] 4 08:07:40 Hyperchole sterolemia 88808421 Active 2018 Not Available [facility] 4 08:07:39 Depressive disorder 43710286 Active 2018 Not Available [facility] 4 08:07:40 Hypertensi ve disorder 67004128 Active 2018 Not Available [facility] 4 08:07:40 Sleep apnea 94771383 Active 2018 Not Available [facility] 4 08:07:40 Polycystic ovary 160285546 Active 2018 Not Available [facility] 4 08:07:40 Morbid obesity 166717706 Active 2018 Not Available [facility] 4 08:07:40 Osteoarthr itis of knee 324117180 Active 2018 Not Available [facility] 4 08:07:40 Dysuria 89427073 Active 2022 Not Available [facility] 4 08:07:40 Acute urinary tract infection 992758437 Active 2022 Not Available [facility] 4 08:07:40 Kidney stone 54927615 Active 2022 Not Available [facility] 4 08:07:40 Superficia l incisional surgical site infection 947043339 Active 2023 Steve Park [address], [address] , [facility] 4 10:22:49 Oncocytoma of right kidney 8320473147336 107 Active 2023 Steve Park [address], [address] , [facility] 4 22:41:46 Problem Notes None recorded. Procedures Surgical History Date Name Laterality Status Provider Name and Address Organization Details Recorded Time 2 Colonoscopy completed Steve Park DO [address] [place] [address], [address], [facility] 12/27/2021 08:14:44 Imaging Results None recorded. Procedure Notes None recorded. Medical Equipment None [...] Not Available No t Available Dexcom G6 Sheet Cutter 2023 active Not Available Not Available Not Avai lable Dexcom G6 Transmitter device USE DIRECTED active Not Available Not Available No t Available FreeStyle Anirudh 14 Day Sensor kit apply every 14 days 03/08 completed Not Available Not Available Not Available FreeStyle Anirudh 2 [place] USE DIRECTED 04/11 completed Not Available Not Available Not Available Vitals Date Recorded Body height Body mass index (BMI) Body weight Heart rate Oxygen saturation Oxygen saturation in Arterial blood by Pulse oximetry Systolic blood pressure Diastolic blood pressure Provider Name and Address Organization Details Last Updated DateTime 4 157.48 cm 39.3 kg/m2 54250.3 6 g 92 /min 98 % 98 % 132 mm[Hg] 76 mm[Hg] Tonya Ramirez [facility] 4 14:46:00 Social History Question Answer Notes LastModified by Organizat ion Details LastModified Time Tobacco Smoking Status Never Smoker Steve Park DO [address] [place] [address], [address], [facility] 06/07/2019 14:22:09 What Was The Date Of Your Most Recent Tobacco Screening? 05/31/2024 [email or web address] Information not available 05/31/2024 Do You Or [...] Time SARS-COV-2 (COVID-19) vaccine, UNSPECIFIED 4 [place], [address], [facility] 03/19/2024 06:51:20 MMR 4 completed Santos cuba, [facility] 06/07/2024 09:27:23 varicella 4 completed Santos cub[place], [facility] 06/07/2024 09:27:40 pneumococcal polysaccharide PPV23 5 completed Not Available [facility] 07/02/2021 22:52:48 Tdap 1 completed Not Available [facility] 07/02/2021 22:52:48 COVID-19, mRNA, LNP-S, PF, 100 mcg/0.5mL dose or 50 mcg/0.25mL dose 1 completed Not Available [facility] 07/02/2021 22:52:48 COVID-19, mRNA, LNP-S, PF, 100 mcg/0.5mL dose or 50 mcg/0.25mL dose 1 completed Not Available [facility] 07/02/2021 22:52:48 Past Encounters Encounter ID Performer Location Encounter Start Date Encounter Closed Date Diagnosis/Indication Diagnosis SNOMED-CT Code Diagnosis ICD10 Code [id number] Steve Park DO [facility] [address] [facility] [place] [address] 05/31/2024 14:29:28 05/31/2024 16:41:44 Pre-surgery evaluation 993083469 Z01.818 Health Concerns Section Related Observation LastModified by Organization Detai ls LastModified Time None Recorded Concern Status LastModified by Organization Details LastModified Time None Recorded Payers Encounter Date Sequence Insurance Name Policy Number Policy Mathis Covered Member ID Mathis Member ID Guarantor Name 05/31/2024 1 [facility] (O) [id number] 1 Rosa M Garcia [id number] Rosa M Garcia Notes Date Note Type Note Provider Name and Address Organization Details Recorded Time 05/31/2024 text/html here for pre op eval for cataract geting OS done Steve Park DO [address] [facility] [place], [address], [facility] 05/31/2024 15:02:56 OBGyn Episode No OBEpisode recorded.
[2024-06-28] MEDS: Tetracaine HCl/PF 0.5% Oph Sol 4 ML DROPS 1 DROP EYE-LEFT (09:00)
[2024-06-28 09:03] VITALS: BP 163/76; PULSE 72; RESP 19; TEMP 36.9; O2SAT 96
[2024-06-28 09:17] LABS: Glucose, Whole Blood 85 mg/dL (60-115)
[2024-06-28] MEDS: Tropicamide 1 % Ophth Sol 3 ML BTL 1 DROP EYE-LEFT ×3 (09:18→09:21)
[2024-06-28] MEDS: Cyclopentolate 1 % Ophth Sol 2 ML DRPBTL 1 DROP EYE-LEFT ×3 (09:18→09:20)
[2024-06-28] MEDS: Ketorolac Tromethamine 0.5% Op 10 ML DROPS 1 DROP EYE-LEFT ×3 (09:18→09:20)
[2024-06-28] MEDS: Phenylephrine HCL 2.5% Oph SoL 2 ML BOTTLE 1 DROP EYE-LEFT ×3 (09:19→09:20)
[2024-06-28] MEDS: Lactated Ringers 500 ML 50 ML IV (09:21)
--- NOTE | 2024-06-28 10:10 | MHC.SHP ---
Pre-Procedural Eval Section A - 24 Hr Update-Section A only Date of Service: 06/28/24 The patient is an INPATIENT: No Changes since office visit: No Cold of Flu in the past 2 weeks, No New Medical Problems, No Changes in Medication and No Patient answered all questions The patient has been examined within 24 hours of the surgical procedure. The History & Physical has been completed within 30 days and I have reviewed it.: Yes Section B - Complete if H&P > 30 days Chief Complaint: Age-related nuclear cataract, left eye Allergies: Allergies Allergy/AdvReac Type Severity Reaction Status Date / Time No Known Allergies Allergy Verified 02/23/24 15:39 [No Known Allergies*] Plan Diagnosis/Plan: Unchanged I have reviewed the history and physical and performed a pertinent physical examination on my patient. No changes have occurred unless specified. Time Spent With Patient Time: Total time managing care of this patient today ____ minutes.
--- NOTE | 2024-06-28 10:11 | HO.PNOPHT ---
Ophthalmology Procedure Procedure Date of Service: 06/28/24 Ophthalmology Viscoelastic: Healalcon Duet Dual Pack Pro Ophthalmology Lenses: TECDEACON [id number] (24) Procedure Notes: PREOPERATIVE DIAGNOSIS: Decreased visual acuity left eye secondary to cataract POSTOPERATIVE DIAGNOSIS: Same PROCEDURE: Left cataract extraction with intraocular lens insertion SURGEON: Jewel Corea M.D. ANESTHESIA: Topical/MAC ESTIMATED BLOOD LOSS: None COMPLICATIONS: None After obtaining informed consent, the patient was brought to the operation room suite and placed in the supine position. After adequate sedation per anesthesia, topical drops of Tetracaine were given to the left eye. The eye was then prepped and draped in the usual sterile fashion. The operating room microscope was then positioned over the operative eye and a lid speculum placed. A paracentesis was created. Viscoelastic was then instilled into the anterior chamber. A three plane incision was then created temporally, utilizing a 2.85 mm keratome. Capsulotomy forceps were then utilized to create a circular tear capsulotomy. Hydrodissection and hydrodelineation were carried out until adequate mobilization of the nucleus occurred. Phacoemulsification was then utilized to remove the dense central nucleus followed by removal of the cortical material utilizing the automated aspiration irrigation unit. Viscoat elastic was instilled into the posterior capsular bag followed by placement of a posterior chamber intraocular lens without difficulty. The residual Viscoat elastic was then removed utilizing the automated IA machine. The wound was check and found to be watertight. The patient tolerated the procedure well and the lid speculum was removed. Intracameral injection of Vigamox 0.1 mL followed by a subtenon injection of Kenalog-40 0.2 mL were administered. The patient will be seen in the a.m.
[2024-06-28 10:37] VITALS: BP 156/90; PULSE 70; RESP 16; TEMP 36.2; O2SAT 100
== END 2024-06-28 10:53 | disposition home or self-care (01) ==
PROVIDERS: PCP Internal Medicine; Visit Provider Ophthalmology
PROC: (CPT 66985; principal; 2024-06-28 10:30)
DX: H25.12 Age-related nuclear cataract, left eye (principal); H54.7 Unspecified visual loss; H25.042 Posterior subcapsular polar age-related cataract, left eye; H18.413 Arcus senilis, bilateral; Z96.1 Presence of intraocular lens; I10 Essential (primary) hypertension; E78.00 Pure hypercholesterolemia, unspecified; E11.9 Type 2 diabetes mellitus without complications; J45.909 Unspecified asthma, uncomplicated; G47.33 Obstructive sleep apnea (adult) (pediatric); F32.A Depression, unspecified; Z79.4 Long term (current) use of insulin; Z79.84 Long term (current) use of oral hypoglycemic drugs; Z79.51 Long term (current) use of inhaled steroids; Z79.899 Other long term (current) drug therapy
CPT/HCPCS: 66984; 82947; J2250; J3301; V2632

== ENCOUNTER 2024-09-27 08:02 | Outpatient (REF) | payer OTHER, SELFPAY ==
[2024-09-27 13:42] LABS: Estimated Average Glucose 157 mg/dL; Hemoglobin A1c % 7.1 % (<6.0); Total Hemoglobin (HGBA1C) 3526.6271 umol/L
[2024-09-27 14:04] LABS: Alanine Aminotransferase 23 U/L (0-31); Albumin Level 4.1 g/dL (3.5-5.0); Alkaline Phosphatase 107 U/L (39-117); Anion Gap 13 (12-20); Aspartate Amino Transferase 23 U/L (5-31); Bilirubin Total 0.4 mg/dL (0.0-1.0); Blood Urea Nitrogen 15 mg/dL (9-16); Calcium 9.4 mg/dL (8.4-10.2); Carbon Dioxide 28 mmol/L (22-29); Chloride 108 mmol/L (96-108); Cholesterol 196 mg/dL (<200); Estimated Glomerular Filt Rate > 60; Glucose Random 88 mg/dL (60-115); HDL Cholesterol 65 mg/dL (>40); LDL Cholesterol Calculated 117 mg/dL (<100); Potassium 4.6 mmol/L (3.3-5.1); Sodium 144 mmol/L (135-145); Total Protein 7.7 g/dL (6.5-8.0); Triglycerides 73 mg/dL (<150)
== END 2024-09-27 08:03 | disposition home or self-care (01) ==
LOC: HO.MANLDS 08:02
PROVIDERS: Visit Provider Internal Medicine
DX: E78.00 Pure hypercholesterolemia, unspecified (principal); E11.65 Type 2 diabetes mellitus with hyperglycemia
CPT/HCPCS: 36415; 80053; 80061; 83036

== ENCOUNTER 2024-10-31 15:23 | Emergency (ER) | payer OTHER, SELFPAY ==
[2024-10-31] VITALS (8 sets, daily range): BP systolic 140–187; BP diastolic 55–100; PULSE 78–90; RESP 16–20; TEMP 36.6–37; O2SAT 93–100; BMI 41.2
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
--- NOTE | ~2024-10-31 | XR_ITS ---
CLINICAL HISTORY: pain 4 views left wrist including navicular view Comparison: None Findings: No fractures or dislocations. No significant arthritic change. No radiopaque foreign body. Impression: Unremarkable left wrist. No acute skeletal abnormality This document has been electronically signed by: Reid Mckee MD on 10/31/2024 17:28:40
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
--- NOTE | ~2024-10-31 | CT_ITS ---
CLINICAL HISTORY: hematoma pain L thigh CT angiography of the left lower extremity. Comparison: X-rays of the left femur from 10/31/2024 Findings: Left lateral soft tissue swelling is superficial as can be seen with reported hematoma. No displaced fracture of the left femur left hip. No dislocation of the left hip. Intramuscular lipoma of vastus intermedius measures 1.4 cm. Calcified and noncalcified plaque involving the imaged iliacs in the [id number]-ur-qwpc. No significant stenosis of the left common femoral artery, imaged left deep femoral artery, and left superficial femoral artery. Popliteal artery is patent proximal and distal to the knee hardware. Portions of the popliteal obscured by left knee arthroplasty metal artifacts. No arterial extravasation of the contrast in the imaged left lower extremity. Again soft tissues around the knee are obscured. Small left inguinal lymph nodes are likely reactive. Small to moderate effusion of the imaged knee. Moderate osteoarthritis of the left hip. No definite hardware loosening of the left knee arthroplasty. Filter contrast imaged urinary bladder. Uterus deviates to the left. No adnexal soft tissue mass. Severe stool burden is noted. Imaged appendix is unremarkable. No small bowel obstruction in the [id number]-rp-srrf. IMPRESSION: 1. No arterial extravasation of the contrast by CT. 2. Imaged left femoral arteries are patent. 3. Osteoarthritis of the left hip. 4. No definite hardware loosening of the imaged left knee arthroplasty by CT. This document has been electronically signed by: Minesh Ureña MD on 10/31/2024 22:51:41
--- OUTSIDE RECORDS SUMMARY | 2024-10-31 16:03 | XMS_ITS | Data Portability ---
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 MODERATE MUST MEET 2 OUT OF 3 [...] COVERED Not available 07/02/2023 11:11:30 09/24/2023 09/24/2023 [id number] [place] [id number] (CUTTER GRIND TOOL TECHNICIAN) MDM MODERATE MUST MEET 2 OUT OF [...] 05/31/2024 05/31/2024 . 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 GRIND TOOL TECHNICIAN) MDM MODERATE MUST MEET 2 OUT OF [...] EACH ELEMENT THAT IS COVERED Not available 09/29/2024 10:41:28 Plan of Treatment Reminders Order Date Submit Date Provider Last Modified By Organization Details Last Modified Time Details Appointments FOLLOW UP 15 2024 03:15P M DR PARK Not available Not available Not available Lab HbA1c (hemoglob in A1c), blood 2023 024 [email or web address], [place], [address], 09/24/2023 11:35:58 CMP, serum or plasma 2023 024 [facility], [place], [address], 05/27/2024 14:21:27 CBC w/ auto diff 2023 024 [facility], [place], [address], 11/25/2023 09:27:41 lipid panel, blood 2023 024 [email or web address], [place], [address], 09/24/2023 11:35:58 Referral urologist referral 2022 023 [email or web address] 10 Brien Christie MD, [address] [facility], [place], [address], 07/04/2023 09:16:44 Procedures None recorded. Surgeries None recorded. Imaging None recorded. Medication Orders Ozempic 0.25 mg or 0.5 mg (2 mg/3 mL) subcutane ous pen injector 2024 025 [email or web address] [id number], [address] [place], [address], 10/02/2024 09:11:03 mupirocin 2 % topical ointment 2023 025 CHAI [id number], [address] [place], [address], 09/29/2024 10:00:06 Patient TargetsNo targets recorded. Patient Instructions Encounter Date Encounter Id Patient Instructions Last Modified By Organization Details Last Modified Time 03/08/2024 [id number] pulse oximetry* Not available 03/08/2024 10:24:16 09/29/2024 [id number] pulse oximetry* [facility] Not available 09/29/2024 11:22:08 learning about type 2 diabetes Not available 09/29/2024 10:45:02 type 2 diabetes: care instructions Not available 09/29/2024 10:45:02 Reason for Referral Urologist Referral for Kidne y stone Referring Physician: Steve Park, Internal Medicine, Encounter Date: 07/02/2023 Results Created Date Observation Date Name Description Value Unit Range Abnormal Flag Note LastModifiedBy Organization Detail LastModifiedTime 03/08/2003/08/2024 pulse oxime try* Result 99 Not Available [facility] [address] [facility] [place], [address], 03/03/2024 13:50:05 09/30/19 25 09/29/2024 pulse oxime try* Result 97 Not Available [facility] [address] [place], [address], 09/28/2024 12:02:01 06/27/20 23 06/16/2023 nucle ar stres s test No observ ation record ed. [address] (Medical Records) [address] [place] [address], [address], 07/02/2023 11:00:33 06/30/20 23 06/30/2023 CT, abdom en + pelvi s, w/o contr ast No observ ation record ed. [address] (Medical Records) [address] [place], [address], 07/02/2023 11:00:33 11/05/19 24 10/31/2023 CT, adren al, w/ wo contr ast No observ ation record ed. [email or web address] Not Available 2023 12:23:58 02/23/20 24 02/23/2024 CT, angio gram, head + neck, w/wo contr ast No observ ation record ed. [email or web address] [facility] (Medical Records) [address] [place], [address], 02/24/2024 08:47:31 Result Notes None recorded. Problems Name Problem SNOMED Code Status Onset Date Resolution Date Notes Provider Name and Address Organization Details Recorded Time Asthma 812831687 Active 2018 Laisha cuba [facility] Internal [facility] 5 12:01:48 Type 2 diabetes mellitus 57783312 Active 2018 Laisha cuba [facility] 5 12:01:48 Hyperchole sterolemia 63680283 Active 2018 Laisha cuba [facility] 5 12:01:48 Depressive disorder 33478235 Active 2018 Laisha cuba [facility] 5 12:01:48 Hypertensi ve disorder 75714447 Active 2018 Laisha cuba [facility] 5 12:01:48 Sleep apnea 85266755 Active 2018 Laisha cuba [facility] 5 12:01:48 Polycystic ovary 907023878 Active 2018 Not Available [facility] 4 08:07:40 Morbid obesity 444726381 Active 2018 Laisha cuba [facility] 5 12:01:48 Osteoarthr itis of knee 004387826 Active 2018 Not Available [facility] 4 08:07:40 Dysuria 22908125 Active 2022 Laisha cuba [facility] 5 12:01:53 Acute urinary tract infection 152588542 Active 2022 Laisha cuba [facility] 5 12:01:53 Kidney stone 45025728 Active 2022 Laisha cuba [facility] 5 12:01:53 Superficia l incisional surgical site infection 093389768 Active 2023 Laisha cuba [facility] 5 12:01:53 Oncocytoma of right kidney 1564442150608 107 Active 2023 Laisha cuba [facility] 5 12:01:48 Problem Notes None recorded. Procedures Surgical History Date Name Laterality Status Provider Name and Address Organization Details Recorded Time 12/25/19 22 Colonoscopy completed Steve Park, DO [address] [place] [address], [place], [address], [facility] 12/27/2021 08:14:44 Imaging Results Imaging Date Name Status LastModified by Organiz ation Details LastModified Time 06/16/2023 nuclear stress test completed [address] (Medical Records) [address] [place] [address], [address], 07/02/2023 11:00:33 06/30/2023 CT, abdomen + pelvis, w/o contrast completed [address] [facility] [address] [facility] (Medical Records) [address] [place], [address], 07/02/2023 11:00:33 10/31/2023 CT, adrenal, w/ wo contrast completed [email or web address] Information not available 11/05/2023 12:23:58 02/23/2024 CT, angiogram, head + neck, w/wo contrast completed [email or web address] [facility] (Medical Records) [address] [place], [address], 02/24/2024 08:47:31 Procedure Notes None recorded. Medical Equipment None Reported. Allergies No known drug allergies Medications Name Sig Start Date Stop Date Status Note LastModified by Organization Details LastModified Time celecoxib 200 mg capsule 02/08 completed Not Available Not Available Not Available amoxicillin 500 mg capsule TAKE 4 CAPSULES BY MOUTH 1 HOUR PRIOR TO PROCEDURE 09/29 completed Not Available Not Available Not Available atorvastati n 40 mg tablet TAKE [...] 2 TIMES A DAY NEEDED FOR DIZZINESS 09/29 completed Not Available Not Available Not Available cefpodoxime 200 mg tablet TAKE 1 TABLET (200 MG TOTAL) BY MOUTH EVERY 12 (TWELVE) HOURS FOR 7 DAYS. 09/29 completed Not Available Not Available Not Available meloxicam 15 mg tablet TAKE 1 TABLET EVERY DAY BY ORAL ROUTE WITH MEALS FOR 14 DAYS. 04/11 completed Not Available Not Available Not Available ibuprofen 200 mg capsule Take 1 capsule every 6 hours by oral route. 09/29 completed Not Available Not Available Not Available lisinopril 20 mg tablet 06/07 completed [...] MOUTH EVERY 12 HOURS FOR 10 DAYS 09/29 completed Not Available Not Available Not Available meloxicam 7.5 mg tablet 06/07 completed Not Available Not Available Not Available oxycodone-a cetaminophe n 5 mg-325 mg tablet TAKE 1 TABLET BY MOUTH EVERY 6 HOURS NEEDED FOR PAIN 09/29 completed Not Available Not Available Not Available aspirin 325 mg tablet,makayla yed release [...] 1 CAPSULE BY MOUTH TWICE A DAY 09/29 completed Not Available Not Available Not Available pantoprazol e 40 mg tablet,makayla yed [...] -homatropin e 5 mg-1.5 mg/5 mL oral solution TAKE 5 ML BY MOUTH EVERY 4 [...] day by oral route for 90 days. 09/29 completed Not Available Not Available Not Available acetaminoph en 300 mg-codeine 60 mg tablet TAKE 1 TABLET BY MOUTH EVERY 4 HOURS NEEDED FOR PAIN active Not Available Not Available No t Available mupirocin 2 % topical ointment APPLY A SMALL AMOUNT TO AFFECTED AREA 3 TIMES A DAY 09/29 completed Not Available Not Available Not Available polyethylen e glycol 3350 17 gram/dose [...] 3 TIMES A DAY NEEDED FOR PAIN 09/29 completed Not Available Not Available Not Available lisinopril 40 mg tablet TAKE 1 TABLET BY MOUTH EVERY DAY active Not Available Not Available No t Available ondansetron 4 mg disintegrat ing tablet TAKE 1 TABLET BY MOUTH EVERY 8 HOURS NEEDED FOR NAUSEA/VO MITING *MUST LAST 21 DAYS* 09/29 completed Not Available Not Available Not Available doxycycline hyclate 100 mg tablet TAKE [...] 1 TABLET BY MOUTH TWICE A DAY 2024 active Not Available Not Available Not Avai lable duloxetine 30 mg capsule,del ayed release TAKE 1 CAPSULE DAILY 04/01 completed Not Available Not Available Not Available duloxetine 60 mg capsule,del ayed release Take 1 capsule every day by oral route for 90 days. 09/29 completed Not Available Not Available Not Available BD Ultra-Fine Mini Pen Needle 31 [...] 200 unit/mL (3 mL) subcutaneou s pen INJECT 60 UNITS EVERY DAY SUBCUTANE OUSLY FOR 90 DAYS. active Not Available Not Available No t Available Dexcom G6 Sensor device USE DIRECTED active Not Available Not Available No t Available Dexcom G6 Block Out Machine Operator 2023 active Not Available Not Available Not Avai lable Dexcom G6 Transmitter device USE DIRECTED active Not Available Not Available No t Available FreeStyle Anirudh 14 Day Sensor kit apply every 14 days 03/08 completed Not Available Not Available Not Available Lingueee [address] [place] USE DIRECTED 04/11 completed Not Available Not Available Not Available Ozempic 0.25 mg or 0.5 mg (2 mg/3 mL) subcutaneou s pen injector Inject by subcutane ous route for 90 days. active Not Available Not Available No t Available Vitals Date Recorded Body height Body mass index (BMI) Body weight Heart rate Oxygen saturation Oxygen saturation in Arterial blood by Pulse oximetry Systolic blood pressure Diastolic blood pressure Provider Name and Address Organization Details Last Updated DateTime 4 157.48 cm 39.3 kg/m2 39900.3 6 g 72 /min 99 % 99 % 130 mm[Hg] 82 mm[Hg] David Kapoor [facility] 4 10:05:08 Date Recorded Body height Body mass index (BMI) Body weight Heart rate Oxygen saturation Oxygen saturation in Arterial blood by Pulse oximetry Systolic blood pressure Diastolic blood pressure Provider Name and Address Organization Details Last Updated DateTime 4 157.48 cm 39.3 kg/m2 87753.3 6 g 92 /min 98 % 98 % 132 mm[Hg] 76 mm[Hg] Tonya Ramirez [facility] 4 14:46:00 Date Recorded Body height Body mass index (BMI) Body weight Heart rate Oxygen saturation Oxygen saturation in Arterial blood by Pulse oximetry Systolic blood pressure Diastolic blood pressure Provider Name and Address Organization Details Last Updated DateTime 5 157.48 cm 41.5 kg/m2 507869. 47 g 72 /min 97 % 97 % 164 mm[Hg] 90 mm[Hg] Laisha Barth [facility] 5 10:07:53 Social History Question Answer Notes LastModified by Organizat ion Details LastModified Time Tobacco Smoking Status Never Smoker Steve Park, DO [address] [facility], [place], [address], [facility] 06/07/2019 14:22:09 What Was The Date Of Your Most Recent Tobacco Screening? 09/29/2024 [email or web address] Information not available 09/29/2024 Do You Or Have You Ever Used [...] Details Recorded Time SARS-COV-2 (COVID-19) vaccine, UNSPECIFIED 03/08/20 24 completed Steve Park DO [address] [place], [address], [facility] 03/19/2024 06:51:20 MMR 06/05/20 24 completed Santos cuba [facility] 06/07/2024 09:27:23 varicella 06/05/20 24 completed Santos cuba [facility] 06/07/2024 09:27:40 pneumococcal polysaccharide [id number] 12/01/19 05 completed Not Available [facility] 07/02/2021 22:52:48 Tdap 09/19/19 21 completed Not Available [facility] 07/02/2021 22:52:48 COVID-19, mRNA, LNP-S, PF, 100 mcg/0.5mL dose or 50 mcg/0.25mL dose 10/03/19 21 completed Not Available [facility] 07/02/2021 22:52:48 COVID-19, mRNA, LNP-S, PF, 100 mcg/0.5mL dose or 50 mcg/0.25mL dose 10/31/19 21 completed Not Available [facility] 07/02/2021 22:52:48 Past Encounters Encounter ID Performer Location Encounter Start Date Encounter Closed Date Diagnosis/Indication Diagnosis SNOMED-CT Code Diagnosis ICD10 Code Diagnosis Note [id number] Steve Park DO [facility] [address] [facility],[place] [address] 06/07/2019 13:41:13 06/07/2019 15:04:11 Asthma 659469210 J45.909 overall is pretty well controlled and knows when she is about to get attack and can calm down and slow down ths onset Essential hypertension 34628843 I10 bps are controlled Type 2 pat betes mellitus 86698371 E11.9 will need to refill all her meds and get an a1c Sleep apnea 47407629 G47 .30 discussion re cpap and its mask not fitting well Hypertensive disorder 38 069041 I10 bps are controlled with her meds Depressive disorder 3548 9007 F32.9 long detailed discussion and hx of jher issues as well as prior meds Hypercholesterolemia 136 49886 E78.00 Osteoarthr itis of knee 192444513 M17.9 [id number] Steve Park [facility] [address] [facility],[place] [address] 07/19/2019 11:34:24 07/19/2019 12:31:42 Asthma 707900154 J45.909 overall is pretty well controlled and knows when she is about to get attack and can calm down and slow down ths onset Morbid obesity 095252746 E66.01 Has gained weight due to poor diet/exerc ise Type 2 pat betes mellitus 29247362 E11.9 A1C 8.7 will recheck Will work on diet and exercise and recheck Increase met to 1000 mg Osteoarthr itis of knee 735726230 M17.9 Pain is worse - waiting to see NEOS Sleep apnea 07279352 G47 .30 discussion re cpap and its mask not fitting well Sleep has been poor for long time now Hypercholesterolemia 136 51091 E78.00 Well controlled now [id number] October BERNADETTE Lopez [facility] [address] [facility],[place] [address] 07/21/2019 14:52:31 07/21/2019 16:06:44 Pre-surgery evaluation 124929376 Z01.818 cleared for this low risk procedure Cataract 408008595 H26.9 right cataract Asthma 784053964 J45.90 9 very well controlled Type 2 pat betes mellitus 60096470 E11.65 moderately well controlled Sleep apnea 86444852 G47 .30 compliant with cpap Essential hypertension 92217862 I10 well controlled [id number] Steve Park [facility] [address] [facility],[place] [address] 09/13/2019 10:53:07 09/13/2019 11:31:41 Type 2 diabetes mellitus 95486821 E11.9 A1C8.3 was 8.7 will have her see dr mccain Will work on diet and exercise and recheck metformin caused gi upset will need to devrease back to 750 Osteoarthr itis of knee 621572302 M17.9 Pain is worse - waiting to have surgery on december [id number] Steve Park DO [facility] [address] [facility], [place] [address] 02/09/2020 14:10:46 02/09/2020 14:53:00 Hypercholesterolemia 76686512 E78.00 Well controlled now Depressive disorder 3548 9007 F32.9 long detailed discussion and hx of jher issues as well as prior meds Type 2 pat betes mellitus 28843264 E11.9 A1C was7.8 and was in aug was 8.3 and before that 8.7 will have her see dr mccain Will work on diet and exercise and recheck metformin caused gi upset will need to decrease back to 750 takes tresiba 60 daily relates that she has had 3 episodes of low sugar symptoms over the last week will have her lower the tresiba to 56u to see if we can stop the low sugar episodes told her that she should shoot for a1c of 6's but she is not confident Asthma 877114670 J45.90 9 overall is pretty well controlled and knows when she is about to get attack and can calm down and slow down ths onset discussion re her intoleranc e of the advair 500 will decrease to the 250 dose Hypertensive disorder 38 133561 I10 bps are controlled with her meds [id number] BOYD CHAIREZ [facility] Internal [facility] [address] [facility],[place] [address] 03/03/2020 15:59:50 03/03/2020 16:43:28 Dysuria 03523550 R30.9 not enough urine to send out for culture History of calculus of kidney 214177445 Z87.442 will send in order for CT in the meantime with have KUB done to see if anything is found will treat in the meantime to prevent infection/ worsening infection [id number] Steve Park DO [facility] [address] [facility],[place] [address] [facility] [place] [address] 06/12/2020 14:00:57 06/12/2020 15:26:52 Asthma 970994909 J45.909 relates she has been having trouble during pollen season but overall is pretty well controlled and knows when she is about to get attack and can calm down and slow down the onset discussion re her intoleranc e of the advair 500 will decrease to the 250 dose Hypertensive disorder 38 383469 I10 bps are controlled with her meds Type 2 pat betes mellitus 57881863 E11.9 A1C was 7.6 and before this was 7.8 and was in aug was 8.3 and before that 8.7 will have her see dr mccain Will work on diet and exercise and recheck metformin caused gi upset will need to decrease back to 750 takes tresiba 60 daily relates that she has had 3 episodes of low sugar symptoms over the last week will have her lower the tresiba to 56u to see if we can stop the low sugar episodes told her that she should shoot for a1c of 6's but she is not confident Hypercholesterolemia 136 23237 E78.00 Well controlled now but will have her stop the atorvastat to see if GI is better [id number] Steve Park DO [facility] [address] [facility] [address] [facility] [address],[place] [address] 07/17/2020 13:36:05 07/17/2020 14:51:04 Asthma 114150802 J45.909 relates she has been having trouble during pollen season but overall is pretty well controlled and knows when she is about to get attack and can calm down and slow down the onset discussion re her intoleranc e of the advair 500 will decrease to the 250 dose Hypertensive disorder 38 766108 I10 bps are controlled with her meds Type 2 pat betes mellitus 56304898 E11.9 A1C was last 7.6 and before this was 7.8 and was in aug was 8.3 and before that 8.7 will have her see dr mccain Will work on diet and exercise and recheck metformin caused gi upset will need to decrease back to 750 takes tresiba 60 daily relates that she has had 3 episodes of low sugar symptoms over the last week will have her lower the tresiba to 56u to see if we can stop the low sugar episodes told her that she should shoot for a1c of 6's but she is not confident Morbid obesity 905911812 E66.01 Has gained weight due to poor diet/exerc ise will try a wgt loss clinic as i feel if we can curb her appetite she will have an easier time to lose wgt [id number] Steve Park DO [facility] [address] [facility] [place] [address] [facility] [address] 09/18/2020 10:42:11 09/18/2020 11:57:05 Asthma 344771771 J45.909 relates she has been having trouble during pollen season but overall is pretty well controlled and knows when she is about to get attack and can calm down and slow down the onset discussion re her intoleranc e of the advair 500 will decrease to the 250 dose Hypertensive disorder 38 100186 I10 bps are controlled with her meds Type 2 pat betes mellitus 59243462 E11.9 A1C was 9.3 now very poor her last 7.6 and before this was 7.8 and was in aug was 8.3 and before that 8.7 Will work on diet and exercise and recheck metformin caused gi upset will need to decrease back to 750 takes tresiba 60 daily now due to poor control will also add trulicity weekly as her sugar is completely out of control rechk 3 months Sleep apnea 56075932 G47 .30 discussion re cpap and its mask not fitting well Sleep has been poor for long time now 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 we are wondering if she is a candidate for post pharynx surgery Depressive disorder 1468 7593 F32.9 long detailed discussion and hx of her issues as well as prior meds we will refer her to her prior provider judah amador [id number] Steve Park, [facility] [address] [facility],[place] [address] 12/25/2020 10:51:57 12/25/2020 11:45:33 Type 2 diabetes mellitus 48919383 E11.9 A1C is now 7.4 and was bad before at 9.3 last time her last 7.6 and before this was 7.8 and was in aug was 8.3 and before that 8.7 Will work on diet and exercise and recheck metformin caused gi upset will need to decrease back to 750 takes tresiba 60 daily now due to poor control will also add trulicity weekly as her sugar is completely out of control rechk 3 months Hypertensive disorder 38 818478 I10 bps are controlled with her meds Hypercholesterolemia 136 75069 E78.00 Well controlled now but will have her stop the atorvastat to see if GI is better Asthma 218866580 J45.90 9 still having trouble relates she has been having trouble during pollen season but overall is pretty well controlled and knows when she is about to get attack and can calm down and slow down the onset discussion re her intoleranc e of the advair 500 will decrease to the 250 dose Sleep apnea 55889570 G47 .30 she is still following the pulmonolog ist discussion re cpap and its mask not fitting well Sleep has been poor for long time now 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 we are wondering if she is a candidate for post pharynx surgery [id number] BOYD CHAIREZ [facility] [address] [facility],[place] [address] 02/19/2021 15:35:50 02/19/2021 16:20:08 Asthma 219758885 J45.20 stable Pain in right knee 65577 85674 49873 M25.561 will fu with XR Chondromal acia of right patella 2278898594 5848788 M22.41 Jimenez injury 387999798 S8 9.91XA will fu with XRwill need MRI, very possible tissue tear, medical meniscus and medial ligament Cellulitis 801536566 L03 .90 will start on short course of abxjoint is hot and swollen with surroundin g redness and laceration anterior patella, possible invasion of bacteria through wound [id number] Steve Park DO [facility] [address] [facility],[place] [address] 03/05/2021 11:55:23 03/05/2021 12:40:39 Type 2 diabetes mellitus 50317254 E11.9 A1C is now8.1 7.4 in november and was bad before and was in aug was 8.3 and before that 8.7 Will work on diet and exercise and recheck from [facility]: metformin caused gi upset will need to decrease back to 750 takes tresiba 60 daily now due to poor control will also add trulicity weekly as her sugar is completely out of control rechk 3 months Hypertensive disorder 38 324132 I10 bps are controlled with her meds Asthma 917925370 J45.90 9 still having trouble relates she has been having trouble during pollen season but overall is pretty well controlled and knows when she is about to get attack and can calm down and slow down the onset discussion re her intoleranc e of the advair 500 will decrease to the 250 dose Osteoarthr itis of knee 781260304 M17.9 Pain is worse - waiting to have surgery on december 15 Onychomyco sis of toenails 716603947 B35.1 we will refer her to podiatry [id number] Steve Park, [facility] [address] [facility] [address],[place] Systems [place] [address] 06/25/2021 08:22:42 06/25/2021 13:29:23 Type 2 diabetes mellitus [id number] E11.65 A1C is still 8.1 7.4 in november and was bad before and was in aug was 8.3 and before that 8.7 Will work on diet and exercise and recheck and we will try to get her some trulicity from PRIOR: metformin caused gi upset will need to decrease back to 750 takes tresiba 60 daily now due to poor control will also add trulicity weekly as her sugar is completely out of control rechk 3 months Hypertensive disorder 38 755415 I10 bps are controlled with her meds Asthma [id number] J45.90 9 still having trouble relates she has been having trouble during pollen season but overall is pretty well controlled and knows when she is about to get attack and can calm down and slow down the onset discussion re her intoleranc e of the advair 500 will decrease to the 250 dose Adenomatou s polyp of colon [id number] D12.6 Depressive disorder 3548 9007 F32.9 long detailed discussion and hx of her issues as well as prior meds increase britany 120mg duloxetiun e we will refer her to her prior provider ms so perry [id number] Steve Park [facility] Internal Medicine [address],[place] [address] 08/13/2021 08:16:08 08/13/2021 14:05:07 Hypertensive disorder 14204096 I10 bps are controlled with her meds Type 2 pat betes mellitus 77081589 E11.65 A1C is still 8.1 7.4 in november and was bad before and was in aug was 8.3 and before that 8.7 Will work on diet and exercise and recheck and we will try to get her some trulicity from PRIOR: metformin caused gi upset will need to decrease back to 750 takes tresiba 60 daily now due to poor control will also add trulicity weekly as her sugar is completely out of control rechk 3 months Asthma [id number] J45.90 9 still having trouble relates she has been having trouble during pollen season but overall is pretty well controlled and knows when she is about to get attack and can calm down and slow down the onset discussion re her intoleranc e of the advair 500 will decrease to the 250 dose Morbid obesity 378165093 E66.01 Has gained weight due to poor diet/exerc ise will try a wgt loss clinic as i feel if we can curb her appetite she will have an easier time to lose wgt [id number] Steve Park DO [facility] Internal Medicine [address] [facility] [address], [place] [address] 04/01/2022 12:03:00 04/01/2022 13:10:53 Type 2 diabetes mellitus 15838642 E11.65 sugars are worse a1c is 9.7 complete out of controllon g discussion we will need the monitor continuous Depressive disorder 8533 4575 F32.9 long detailed discussion and hx of her issues as well as prior meds increase britany 120mg duloxetiun e we will refer her to her prior provider ms judah matadelmy History of left total knee replacement [id number] 452566 Z96.652 will need to get her protected [id number] Steve Park DO [facility] Internal Medicine [address] [facility] [address],[place] [address] 10/02/2022 14:23:07 10/02/2022 15:53:54 Hypertensive disorder 84175417 I10 bps are controlled with her meds Type 2 pat betes mellitus 17389424 E11.65 sugars are worse a1c is 8.1 and we will await the a1c pending' long discussion we will need the monitor continuous given elevated sugars before each meal she will increase the dose of Humalog by 2 units each level Sleep apnea 28954395 G47 .30 she is still following the pulmonolog ist discussion re cpap and its mask not fitting well Sleep has been poor for long time now 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 we are wondering if she is a candidate for post pharynx surgery Asthma 289538592 J45.90 9 still having trouble relates she has been having trouble during pollen season but overall is pretty well controlled and knows when she is about to get attack and can calm down and slow down the onset discussion re her intoleranc e of the advair 500 will decrease to the 250 dose Morbid obesity 471540632 E66.01 Has gained weight due to poor diet/exerc ise in the summer will try a wgt loss clinic as i feel if we can curb her appetite she will have an easier time to lose wgt Screening mammography 24 586532 Z12.31 pt refuses due to painful experience Depressive disorder 3548 9007 F32.9 feeling much better overall with the bupropionw e will continue [id number] Steve Park DO [facility] Internal Medicine [address],[place] [address] 01/10/2023 08:42:01 01/10/2023 10:02:11 Hypercholesterolemia 14131798 E78.00 Well controlled now but will have her stop the atorvastat to see if GI is better Asthma 142235259 J45.90 9 still having trouble at times relates she has been having trouble during pollen season but overall is pretty well controlled and knows when she is about to get attack and can calm down and slow down the onset discussion re her intoleranc e of the advair 500 will decrease to the 250 dose Hypertensive disorder 38 407678 I10 bps are controlled with her meds Type 2 pat betes mellitus 13802592 E11.65 sugars are even worse now at 9.5 her prior was a1c is 9.7 long discussion we will need the monitor continuous given elevated sugars before each meal she will increase the dose of Humalog by 2 units each level Sleep apnea 83639743 G47 .30 she is still following the pulmonolog ist discussion re cpap and its mask not fitting well Sleep has been poor for long time now 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 we are wondering if she is a candidate for post pharynx surgery Screening mammography 24 561112 Z12.31 pt refuses due to painful experience [id number] Steve Park DO [facility] Internal Medicine [address] [facility],[place] [address] 04/11/2023 08:50:54 04/11/2023 13:24:32 Asthma 909030554 J45.909 has been fairly stable PRIOR still having trouble at times relates she has been having trouble during pollen season but overall is pretty well controlled and knows when she is about to get attack and can calm down and slow down the onset discussion re her intoleranc e of the advair 500 will decrease to the 250 dose Hypertensive disorder 38 471435 I10 bps are controlled with her meds Type 2 pat betes mellitus 97905570 E11.65 has not gotten lab yet relates that she has noted elevated glucose while with covid sugars are even worse now at 9.5 her prior was a1c is 9.7 long discussion we will need the monitor continuous given elevated sugars before each meal she will increase the dose of Humalog by 2 units each level Essential hypertension 81711274 I10 bps are controlled Hypercholesterolemia 136 55046 E78.00 Well controlled now but will have her stop the atorvastat to see if GI is better Depressive disorder 3548 9007 F32.9 feeling much better overall with the bupropionw e will continue Type 2 pat betes mellitus without complication 767127579 E11.9 [id number] Steve Park DO [facility] Internal Medicine [address] [facility],[place] [address] 07/02/2023 09:04:35 07/02/2023 14:53:40 Kidney stone 04070796 N20.0 getting significan t pain and is now unccomfort able all the time now Hypertensive disorder 38 681502 I10 bps are controlled with increased bp med Type 2 pat betes mellitus 68969340 E11.65 has not gotten lab yet relates that she has noted elevated glucose while with covid sugars are even worse now at 9.5 her prior was a1c is 9.7 long discussion we will need the monitor continuous given elevated sugars before each meal she will increase the dose of Humalog by 2 units each level [id number] Steve Park DO [facility] Internal Medicine [address] [facility],[place] [address] 09/24/2023 08:04:21 09/24/2023 12:00:02 Asthma 543801733 J45Michael has been fairly stable PRIOR still having trouble at times relates she has been having trouble during pollen season but overall is pretty well controlled and knows when she is about to get attack and can calm down and slow down the onset discussion re her intoleranc e of the advair 500 will decrease to the 250 dose Hypercholesterolemia 136 46046 E78.00 Well controlled now but will have her stop the atorvastat to see if GI is better Hypertensive disorder 38 840236 I10 bps are controlled with increased bp med Type 2 pat betes mellitus 92274101 E11.65 a1c is awful at 11.3 has had issues with kidney stone and stent and resultant uti long discussion we will need the monitor continuous given elevated sugars before each meal she will increase the dose of Humalog by 2 units each level [id number] Steve Park DO [facility] Internal Medicine [address] [facility],[place] [address] 03/08/2024 09:50:42 03/08/2024 10:29:19 Asthma 828592858 J45.90Stephen has been fairly stable PRIOR still having trouble at times relates she has been having trouble during pollen season but overall is pretty well controlled and knows when she is about to get attack and can calm down and slow down the onset discussion re her intoleranc e of the advair 500 will decrease to the 250 dose Hypercholesterolemia 136 28891 E78.00 Well controlled now but will have her stop the atorvastat to see if GI is better Hypertensive disorder 38 322345 I10 bps are controlled with increased bp med Type 2 pat betes mellitus 87572205 E11.65 a1c is awful at 11.3 has had issues with kidney stone and stent and resultant uti long discussion we will need the monitor continuous given elevated sugars before each meal she will increase the dose of Humalog by 2 units each level Depression screening 171 955108 Z13.31 equiv Superficia l incisional surgical site infection 890541516 T81.41XA just red and irritated at the two lower sites will cover with mupirocin [id number] Steve Park [facility] Internal Medicine [address] [facility],[place] [address] 05/31/2024 14:29:28 05/31/2024 16:41:44 Pre-surgery evaluation 188442184 Z01.818 per the 2017 ACC cardiac risk stratifica tion (revised) this patient is considered a low risk for the proposed cataract surgery; she understand s to take her usual medication s except the metformin on the day of surgery [id number] Steve Park [facility] Internal Medicine [address] [facility],[place] [address] 09/29/2024 09:36:19 09/29/2024 11:22:05 Depression screening 811265675 Z13.31 equiv Asthma 496707766 J45.90 9 has been fairly stable PRIOR still having trouble at times relates she has been having trouble during pollen season but overall is pretty well controlled and knows when she is about to get attack and can calm down and slow down the onset discussion re her intoleranc e of the advair 500 will decrease to the 250 dose Hypertensive disorder 38 378849 I10 bps are controlled with increased bp med Type 2 pat betes mellitus 97469685 E11.65 a1c is 7.1 nowlong discussion re need for wgt los s will get her on glp1 med long discussion we will need the monitor continuous given elevated sugars before each meal she will increase the dose of Humalog by 2 units each level Health Concerns Section Related Observation LastModified by Organization Detai ls LastModified Time None Recorded Concern Status LastModified by Organization Details LastModified Time None Recorded Advance Directives Directive None Recorded Payers Encounter Date Sequence Insurance Name Policy Number Policy Mathis Covered Member ID Mathis Member ID Guarantor Name 07/02/2023 1 [facility] (PP[facility]) [id number] 1 Rosa M Garcia [id number] Rosa M Garcia 09/24/2023 1 [facility] (PPO) [id number] 1 Rosa M Garcia [id number] Rosa M Garcia 03/08/2024 1 [facility] (PPO) [id number] 1 Rosa M Voger [id number] Rosa M Garcia 05/31/2024 1 [facility] (PPO) [id number] 1 Rosa M Voger [id number] Rosa M Garcia 09/29/2024 1 [facility] (PPO) [id number] 1 Rosa M Garcia [id number] Rosa M Garcia Notes Date Note Type Note Provider Name and Address Organization Details Recorded Time 3 text/htm l patient is evaluated via tele/video assessment per patient consentduring current pandemic pt relates she has the flu bc she had eval for right flank painseen at ER and told her that she had the flu and also had a 4mm renal calculusshe has had a kidney stone 15 yrs ago Steve Park, DO [address] [place] [address], [address], [facility] Internal Medicine 07/02/2023 13:47:27 4 text/htm l Care Management - DiabetesReported bypatient.Prognosis:expe cted outcome: improve; prognosis: moderate Self Care:frequency of [...] in and has had to fight with [id number] is awful 11.3 she states has lost some weight she is up to 70 units of tresibarelates only taking 10 units with meals prob not enough and she is not taking insulin at lunch that 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 Steve Park, DO [address] [place], [address], [facility] 09/24/2023 11:34:50 4 text/htm l a1c 7.8 !!!just had her surgery and did welloperated by dr falguni fofana at located [facility] Steve Park DO [address] [place], [address], [facility] 03/08/2024 10:26:18 4 text/htm l here for pre op eval for cataract geting OS done Steve Park DO [address] [place], [address], [facility] 05/31/2024 15:02:56 5 text/htm l Care Management - DiabetesReported bypatient.Self Care:seeing eye [...] confusion; no headaches; no fatigue here for rechk and is doing ok going for a rivet heater eval still not jeanna to lose wgt Steve Park DO [address] [place], [address], [facility] 09/29/2024 11:27:01 OBGyn Episode No OBEpisode recorded.
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
[2024-10-31 17:25] LABS: MANUAL DIFF FLAG NO
[2024-10-31 17:27] LABS: Basophils Absolute Auto 0.1 X10*3/uL (0.0-0.2); Basophils Percent Auto 0.6 % (0-2); Eosinophils Absolute Auto 0.1 X10*3/uL (0.0-0.4); Hematocrit 38.7 % (37.0-47.0); Hemoglobin 12.9 g/dl (12.0-16.0); Imm Gran Abs Auto 0.02 X10*3/uL (0.00-0.03); Imm Gran Pct Auto 0.2 % (0.0-0.4); Lymphocytes Absolute Auto 1.7 X10*3/uL (1.2-4.9); Lymphocytes Percent Auto 17.3 % (20-40); Mean Corpuscular HGB Conc 33.3 g/dl (31.0-35.0); Mean Corpuscular Hemoglobin 28.4 pg (27.0-33.0); Mean Corpuscular Volume 85.2 fL (80.0-98.0); Mean Platelet Volume 9.9 fL (9.4-12.3); Monocytes Absolute Auto 0.8 X10*3/uL (0.1-1.2); Monocytes Percent Auto 8.4 % (2-11); Neutrophils Absolute Auto 7.3 x10*3/uL (2.0-8.3); Neutrophils Percent Auto 72.5 % (45-73); Platelet Count 302 X10*3/uL (160-400); Red Blood Count 4.54 X10*6/uL (4.20-5.50); Red Cell Distribution Width 12.3 % (11.0-16.0)
[2024-10-31 17:28] LABS: Appearance Urine Clear; Color Urine Yellow; Glucose Urine UA 500 mg/dL (Negative); Leukocyte Esterase Urine Trace (Negative); Nitrite Urine Negative (Negative); Specific Gravity - Urine 1.015 (1.005-1.025); UMIC TRIGGER UACC YES; Urine Blood Negative (Negative); Urine Ketones Negative (Negative); Urine Protein Negative (Neg-Trace)
[2024-10-31 17:48] LABS: Alanine Aminotransferase 20 U/L (0-31); Albumin Level 3.9 g/dL (3.5-5.0); Alkaline Phosphatase 108 U/L (39-117); Anion Gap 13 (12-20); Aspartate Amino Transferase 22 U/L (5-31); Bilirubin Direct 0.1 mg/dL (0.0-0.5); Bilirubin Total 0.3 mg/dL (0.0-1.0); Blood Urea Nitrogen 17 mg/dL (9-16); Carbon Dioxide 25 mmol/L (22-29); Chloride 107 mmol/L (96-108); Estimated Glomerular Filt Rate > 60; Glucose Random 282 mg/dL (60-115); Lipase 35 U/L (8-78); Potassium 3.7 mmol/L (3.3-5.1); Sodium 141 mmol/L (135-145); Total Protein 7.1 g/dL (6.5-8.0)
[2024-10-31 18:14] LABS: Bacteria Urine 3+ (None Seen); Hyaline Casts Urine 0-2 /LPF (0-2); RBC Urine 0-2 /HPF (0-2); Squamous Epithelial Cell Urine 0-2 /HPF (0-2); WBC Urine 0-5 /HPF (0-5)
[2024-10-31] MEDS: iohexoL 350 MG/ML 100 ML INFUS..BTL IV (18:34)
[2024-10-31 21:50] LABS: Hemoglobin 12.4 g/dl (12.0-16.0); Mean Corpuscular HGB Conc 33.5 g/dl (31.0-35.0); Mean Corpuscular Hemoglobin 28.6 pg (27.0-33.0); Mean Corpuscular Volume 85.3 fL (80.0-98.0); Mean Platelet Volume 9.9 fL (9.4-12.3); Platelet Count 291 X10*3/uL (160-400); Red Blood Count 4.34 X10*6/uL (4.20-5.50); Red Cell Distribution Width 12.3 % (11.0-16.0); White Blood Count 9.8 X10*3/uL (4.8-10.8)
[2024-10-31] MEDS: iohexoL 350 MG/ML 100 ML INFUS..BTL 80 ML IV (22:06)
[2024-10-31] MEDS: Lactated Ringers 1,000 ML 999 ML IV ×2 (22:14)
[2024-10-31] MEDS: ondansetron HCL 4 MG/2 ML VIAL IVPUSH (22:14)
[2024-10-31] MEDS: Morphine Sulfate 4 MG/ML CARTRIDGE IVPUSH (22:14)
[2024-11-01 00:35] VITALS: RESP 20
[2024-11-01] MEDS: HYDROmorphone HCl 0.5 MG/0.5 ML SYRINGE IVPUSH (00:35)
[2024-11-01] MEDS: Acetaminophen 1,000 MG/100 ML PIGGYBACK 400 MG IV (00:39)
--- NOTE | 2024-11-01 00:43 | PC.NURSE ---
Addendum entered by Renetta Garces 11/01/24 00:44: Pt destated to 85% on RA, Pt reports using CPAP at night. Pt placed on 4L via oxymask with improvement to 97%. Original Note: This commercial lines underwriter assumed care of this Pt at 2300. Pt A&Ox3, reports 7/10 pain to left arm and left leg, worsening with movement. Pt medicated per SEP.
[2024-11-01 03:45] VITALS: BP 128/73; PULSE 71; RESP 15; TEMP 36.3; O2SAT 97
[2024-11-01 06:06] VITALS: BP 139/66; PULSE 68; RESP 16; TEMP 36.7; O2SAT 97
[2024-11-01 06:09] VITALS: BP 139/66; PULSE 68; RESP 16; TEMP 36.7; O2SAT 97
== END 2024-11-01 07:18 | disposition home or self-care (01) ==
PROVIDERS: Emergency Provider Emergency Medicine; PCP Internal Medicine
DX: S70.12XA Contusion of left thigh, initial encounter (principal); S63.502A Unspecified sprain of left wrist, initial encounter; V43.52XA Car driver injured in collision with other type car in traffic accident, initial encounter; M25.532 Pain in left wrist; M79.662 Pain in left lower leg; Y93.89 Activity, other specified; Y92.413 State road as the place of occurrence of the external cause; Y99.9 Unspecified external cause status
CPT/HCPCS: 36415; 70450; 71260; 72125; 73080; 73110; 73130; 73552; 73706; 74177; 80048; 80076; 81001; 83690; 83735; 85025; 85027; 86850; 86900; 86901; 96361; 96365; 96375; 99285; J0131; J1171; J2270; J2405; J7120; Q9967

== ENCOUNTER → 2024-10-31 16:09 | Outpatient (BNV) | payer OTHER, SELFPAY | PROVIDERS: Emergency Provider Emergency Medicine; PCP Internal Medicine; Visit Provider Radiology Diagnostic Radiology | DX: T14.8XXA Other injury of unspecified body region, initial encounter (principal); S70.12XA Contusion of left thigh, initial encounter; R10.32 Left lower quadrant pain; M25.522 Pain in left elbow; M79.652 Pain in left thigh; M25.532 Pain in left wrist; Z03.89 Encounter for observation for other suspected diseases and conditions ruled out; V49.40XA Driver injured in collision with unspecified motor vehicles in traffic accident, initial encounter; Z04.3 Encounter for examination and observation following other accident | CPT/HCPCS: 70450; 71260; 72125; 73080; 73110; 73552; 73706; 74177 ==

== ENCOUNTER → 2024-11-01 00:22 | Outpatient (BNV) | payer OTHER, SELFPAY | PROVIDERS: Emergency Provider Emergency Medicine; PCP Internal Medicine; Visit Provider Radiology Neuroradiology | DX: M79.642 Pain in left hand (principal) | CPT/HCPCS: 73130 ==

== ENCOUNTER 2024-11-03 10:01 | Outpatient (REF) | payer OTHER, SELFPAY ==
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
--- OUTSIDE RECORDS SUMMARY | 2024-11-03 11:29 | XMS_ITS | Data Portability ---
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) MDM MODERATE MUST MEET 2 OUT OF [...] Lab CMP, serum or plasma 2024 025 [facility], [place], [address], 11/03/2024 09:50:27 HbA1c (hemoglob in A1c), blood 2023 024 [facility], [place], [address], 09/24/2023 11:35:58 CMP, serum or plasma 2023 024 [facility], [place], [address], 05/27/2024 14:21:27 CBC w/ auto diff 2023 [facility], [place], [address], 11/25/2023 09:27:41 lipid panel, blood 2023 024 [facility], [place], [address], 09/24/2023 11:35:58 Referral None recorded. Procedures None recorded. Surgeries None recorded. Imaging None recorded. Medication Orders oxycodone [address] [id number], [address] [facility], [place], [address], 11/03/2024 09:49:21 Ozempic 0.25 mg or 0.5 mg (2 mg/3 mL) subcutane ous pen injector 2024 025 [id number], [address] [place], [address], 10/02/2024 09:11:03 mupirocin 2 % topical ointment 2023 025 CHAI [id number], [address] [place], [address], 09/29/2024 10:00:06 Patient TargetsNo targets recorded. Patient Instructions Encounter Date Encounter Id Patient Instructions Last Modified By Organization Details Last Modified Time 03/08/2024 [id number] pulse oximetry* Not available 03/08/2024 10:24:16 09/29/2024 [id number] pulse oximetry* CHAI Not available 09/29/2024 11:22:08 learning about type 2 diabetes Not available 09/29/2024 10:45:02 type 2 diabetes: care instructions Not available 09/29/2024 10:45:02 Reason for Referral None Reported. Results Created Date Observation Date Name Description Value Unit Range Abnormal Flag Note LastModifiedBy Organization Detail LastModifiedTime 03/08/2003/08/2024 pulse oxime try* Result 99 Not Available [facility] Internal Medicine [address] [place] [address] [address], [place], [address], 03/03/2024 13:50:05 09/30/19 25 09/29/2024 pulse oxime try* Result 97 Not Available [facility] Medicine [address] [facility] [address], [place], [address], 09/28/2024 12:02:01 11/05/19 24 10/31/2023 CT, adren al, w/ wo contr ast No observ ation record ed. [email or web address] Not Available 2023 12:23:58 02/23/20 24 02/23/2024 CT, angio gram, head + neck, w/wo contr ast No observ ation record ed. [address] (Medical Records) [address] [facility] [place], [address], 02/24/2024 08:47:31 11/01/19 25 10/31/2024 XR, elbow , 2 view No observ ation record ed. [address] (Medical Records) [address] [facility] [place], [address], 10/31/2024 21:23:19 11/01/19 25 10/31/2024 XR, wrist No observ ation record ed. [address] (Medical Records) [address] [place], [address], 10/31/2024 21:23:42 11/01/19 25 10/31/2024 XR, femur No observ ation record ed. [address] (Medical Records) [address] [place], [address], 10/31/2024 21:23:59 11/01/19 25 10/31/2024 CT, cervi eric spine , w/o contr ast No observ ation record ed. [address] (Medical Records) [address] [place], [address], 10/31/2024 21:24:19 11/01/19 25 10/31/2024 CT, head + brain , w/o contr ast No observ ation record ed. [address] (Medical Records) [address] [place], [address], 10/31/2024 21:24:35 11/01/19 25 10/31/2024 CT, chest , w/ contr ast No observ ation record ed. [address] (Medical Records) [address] [place], [address], 10/31/2024 21:24:54 11/01/19 25 10/31/2024 CT, abdom en + pelvi s, w/ contr ast No observ ation record ed. [facility] (Medical Records) [address] [place], [address], 10/31/2024 21:25:13 11/01/19 25 10/31/2024 CT, angio gram, lower extre mity, w/wo contr ast No observ ation record ed. [facility] (Medical Records) [address] [place], [address], 11/01/2024 21:27:32 11/02/19 25 11/01/2024 XR, hand No observ ation record ed. [facility] (Medical Records) [address] [place], [address], 11/01/2024 21:27:51 Result Notes None recorded. Problems Name Problem SNOMED Code Status Onset Date Resolution Date Notes Provider Name and Address Organization Details Recorded Time Asthma 770810366 Active 2018 Laisha cuba [facility] Internal [facility] 5 12:01:48 Type 2 diabetes mellitus 20771146 Active 2018 Laisha cuba [facility] 5 12:01:48 Hyperchol esterolem ia 83393101 Active 2018 Laisha cuba [facility] 5 12:01:48 Depressiv e disorder 87326813 Active 2018 Laisha cuba [facility] 5 12:01:48 Hypertens jasmin disorder 16335981 Active 2018 Laisha cuba [facility] 5 12:01:48 Sleep apnea 34337375 Active 2018 Laisha cuba [facility] 5 12:01:48 Polycysti c ovary 672425232 Active 2018 Not Available [facility] 4 08:07:40 Morbid obesity 257937321 Active 2018 Laisha cuba [facility] 5 12:01:48 Osteoarth ritis of knee 036368074 Active 2018 Not Available [facility] 4 08:07:40 Dysuria 92027271 Active 2022 Laisha cuba [facility] 5 12:01:53 Acute urinary tract infection 119462161 Active 2022 Laisha cuba [facility] 5 12:01:53 Kidney stone 14108428 Active 2022 Laisha cuba, [facility] 5 12:01:53 Superfici al incisiona l surgical site infection 451447621 Active 2023 Laisha cuba [facility] 5 12:01:53 Oncocytom a of right kidney 432719613775 9107 [facility] 12:01[facility] Chronic kidney disease 425264806 Active 2024 BOYD CHAIREZ [address] [place] [address], [address], [facility] 5 09:40:43 Pain of left wrist 054876873929 102 Active 2024 BOYD CHAIREZ [address] [place] [address], [address], [facility] 5 09:43:23 Tendiniti s of left biceps brachii Active 2024 BOYD CHAIREZ [address] [place] [address], [address], [facility] 5 09:43:58 Hematoma of left lower limb Active 2024 BOYD CHAIREZ [address] [place] [address], [address], [facility] Medicine 5 09:47:12 Problem Notes None recorded. Procedures Surgical History Date Name Laterality Status Provider Name and Address Organization Details Recorded Time 12/25/19 22 Colonoscopy completed Steve Park DO [address] [place], [address], [facility] 12/27/2021 08:14:44 Imaging Results Imaging Date Name Status LastModified by Milla tejeda Details LastModified Time 10/31/2023 CT, adrenal, w/ wo contrast completed [email or web address] Information not available 11/05/2023 12:23:58 02/23/2024 CT, angiogram, head + neck, w/wo contrast completed reva [facility] (Medical Records) [address] [place], [address], 02/24/2024 08:47:31 10/31/2024 XR, elbow, 2 view completed [address] (Medical Records) [address] [place] [address], [address], 10/31/2024 21:23:19 10/31/2024 XR, wrist completed [address] (Medical Records) [address] [place] [address], [address], 10/31/2024 21:23:42 10/31/2024 XR, femur completed [address] (Medical Records) [address] [place] [address], [address], 10/31/2024 21:23:59 10/31/2024 CT, cervical spine, w/o contrast completed [address] (Medical Records) [address] [place] [address], [address], 10/31/2024 21:24:19 10/31/2024 CT, head + brain, w/o contrast completed [address] (Medical Records) [address] [place] [address], [address], 10/31/2024 21:24:35 10/31/2024 CT, chest, w/ contrast completed [address] (Medical Records) [address] [place] [address], [address], 10/31/2024 21:24:54 10/31/2024 CT, abdomen + pelvis, w/ contrast completed [address] (Medical Records) [address] [place], [address], 10/31/2024 21:25:13 10/31/2024 CT, angiogram, lower extremity, w/wo contrast completed [facility] (Medical Records) [address] [place], [address], 11/01/2024 21:27:32 11/01/2024 XR, hand completed [facility] (Medical Records) [address] [place], [address], 11/01/2024 21:27:51 Procedure Notes None recorded. Medical Equipment None [...] Not Available No t Available Dexcom G6 Form Drafter 2023 active Not Available Not Available Not Avai lable Dexcom G6 Transmitter device USE DIRECTED active Not Available Not Available No t Available FreeStyle Anirudh 14 Day Sensor kit apply every 14 days 03/08 completed Not Available Not Available Not Available FreeStyle Anirudh 2 Arnot USE DIRECTED 04/11 completed Not Available Not Available Not Available Ozempic 0.25 mg or 0.5 mg (2 mg/3 mL) subcutaneou s pen injector 2024 active Not Available Not Available Not Avai lable Vitals Date Recorded Body height Body mass index (BMI) Body weight Heart rate Oxygen saturation Oxygen saturation in Arterial blood by Pulse oximetry Systolic blood pressure Diastolic blood pressure Provider Name and Address Organization Details Last Updated DateTime 4 157.48 cm 39.3 kg/m2 91681.3 6 g 72 /min 99 % 99 % 130 mm[Hg] 82 mm[Hg] David Kapoor [facility] 4 10:05:08 Date Recorded Body height Body mass index (BMI) Body weight Heart rate Oxygen saturation Oxygen saturation in Arterial blood by Pulse oximetry Systolic blood pressure Diastolic blood pressure Provider Name and Address Organization Details Last Updated DateTime 4 157.48 cm 39.3 kg/m2 24456.3 6 g 92 /min 98 % 98 % 132 mm[Hg] 76 mm[Hg] Tonya Ramirez [facility] 4 14:46:00 Date Recorded Body height Body mass index (BMI) Body weight Heart rate Oxygen saturation Oxygen saturation in Arterial blood by Pulse oximetry Systolic blood pressure Diastolic blood pressure Provider Name and Address Organization Details Last Updated DateTime 5 157.48 cm 41.5 kg/m2 393617. 47 g 72 /min 97 % 97 % 164 mm[Hg] 90 mm[Hg] Laisha Barth [facility] 5 10:07:53 Date Recorded Body height Heart rate Oxygen saturation Oxygen saturation in Arterial blood by Pulse oximetry Systolic blood pressure Diastolic blood pressure Provider Name and Address Organization Details Last Updated DateTime 5 157.48 cm 67 /min 98 % 98 % 142 mm[Hg] 80 mm[Hg] Laisha Barth [facility] 5 09:18:30 Social History Question Answer Notes LastModified by Organizat ion Details LastModified Time Tobacco Smoking Status Never Smoker Steve Park DO [address] [place] [address], [address], [facility] 06/07/2019 14:22:09 What Was The [...] UNSPECIFIED 03/08/20 24 completed Steve Park DO [address] [place] [address], [address], [facility] 03/19/2024 06:51:20 MMR 06/05/20 24 completed Santos cuba [facility] 06/07/2024 09:27:23 varicella 06/05/20 24 completed Santos cuba [facility] 06/07/2024 09:27:40 pneumococcal polysaccharide PPV23 12/01/19 05 completed Not Available [facility] 07/02/2021 22:52:48 Tdap 09/19/19 21 completed Not Available [facility] 07/02/2021 22:52:48 COVID-19, mRNA, LNP-S, PF, 100 mcg/0.5mL dose or 50 mcg/0.25mL dose 10/03/19 21 completed Not Available [facility] 07/02/2021 22:52:48 COVID-19, mRNA, LNP-S, PF, 100 mcg/0.5mL dose or 50 mcg/0.25mL dose 10/31/19 21 completed Not Available [facility] 07/02/2021 22:52:48 Past Encounters Encounter ID Performer Location Encounter Start Date Encounter Closed Date Diagnosis/Indication Diagnosis SNOMED-CT Code Diagnosis ICD10 Code Diagnosis Note [id number] Steve Park [facility] [address] [facility] [address] [address] 06/07/2019 13:41:13 06/07/2019 15:04:11 Asthma 185888523 J45.909 overall is pretty well controlled and knows when she is about to get attack and can calm down and slow down ths onset Essential hypertension 67834583 I10 bps are controlled Type 2 pat betes mellitus 99050863 E11.9 will need to refill all her meds and get an a1c Sleep apnea 10236383 G47 .30 discussion re cpap and its mask not fitting well Hypertensive disorder 38 191137 I10 bps are controlled with her meds Depressive disorder 3548 9007 F32.9 long detailed discussion and hx of jher issues as well as prior meds Hypercholesterolemia 136 22656 E78.00 Osteoarthr itis of knee 757507185 M17.9 [id number] Steve Herronholly [facility] [address] [facility] [address] [address] [address] 07/19/2019 11:34:24 07/19/2019 12:31:42 Asthma 920612842 J45.909 overall is pretty well controlled and knows when she is about to get attack and can calm down and slow down ths onset Morbid obesity 865250425 E66.01 Has gained weight due to poor diet/exerc ise Type 2 pat betes mellitus 70630722 E11.9 A1C 8.7 will recheck Will work on diet and exercise and recheck Increase met to 1000 mg Osteoarthr itis of knee 291911609 M17.9 Pain is worse - waiting to see NEOS Sleep apnea 42727728 G47 .30 discussion re cpap and its mask not fitting well Sleep has been poor for long time now Hypercholesterolemia 136 36580 E78.00 Well controlled now [id number] October BERNADETTE Lopez [facility] Internal Medicine [address] [facility] [address] [address] 07/21/2019 14:52:31 07/21/2019 16:06:44 Pre-surgery evaluation 589793788 Z01.818 cleared for this low risk procedure Cataract 949834847 H26.9 right cataract Asthma 634028503 J45.90 9 very well controlled Type 2 pat betes mellitus 80339177 E11.65 moderately well controlled Sleep apnea 74501181 G47 .30 compliant with cpap Essential hypertension 10283846 I10 well controlled [id number] Steve Park [facility] [address] [facility],[place] [address] 09/13/2019 10:53:07 09/13/2019 11:31:41 Type 2 diabetes mellitus 30160934 E11.9 A1C8.3 was 8.7 will have her see dr mccain Will work on diet and exercise and recheck metformin caused gi upset will need to devrease back to 750 Osteoarthr itis of knee 148715309 M17.9 Pain is worse - waiting to have surgery on december [id number] Steve Park [facility] [address] [facility],[place] [address] 02/09/2020 14:10:46 02/09/2020 14:53:00 Hypercholesterolemia 69435365 E78.00 Well controlled now Depressive disorder 3548 9007 F32.9 long detailed discussion and hx of jher issues as well as prior meds Type 2 pat betes mellitus 41788900 E11.9 A1C was7.8 and was in aug [...] 6's but she is not confident Asthma 801900737 J45.90 9 overall is pretty well controlled and knows when she is about to get attack and can calm down and slow down ths onset discussion re her intoleranc e of the advair 500 will decrease to the 250 dose Hypertensive disorder 38 920820 I10 bps are controlled with her meds [id number] BOYD CHAIREZ [facility] Internal Medicine [address] [facility] [address] [address] 03/03/2020 15:59:50 03/03/2020 16:43:28 Dysuria 18966679 R30.9 not enough urine to send out for culture History of calculus of kidney 404529307 Z87.442 will send in order for CT in the meantime with have KUB done to see if anything is found will treat in the meantime to prevent infection/ worsening infection [id number] Steve Park DO [facility] Internal Medicine [address] [facility] [address] 06/12/2020 14:00:57 06/12/2020 15:26:52 Asthma 647376870 J45.909 relates she has been having trouble during pollen season but overall is pretty well controlled and knows when she is about to get attack and can calm down and slow down the onset discussion re her intoleranc e of the advair 500 will decrease to the 250 dose Hypertensive disorder 38 806502 I10 bps are controlled with her meds Type 2 pat betes mellitus 59415781 E11.9 A1C was 7.6 and before this [...] but she is not confident Hypercholesterolemia 136 36871 E78.00 Well controlled now but will have her stop the atorvastat to see if GI is better [id number] Steve Park DO [facility] Internal Medicine [address] [facility] [address] [address] 07/17/2020 13:36:05 07/17/2020 14:51:04 Asthma 709163502 J45.909 relates she has been having trouble during pollen season but overall is pretty well controlled and knows when she is about to get attack and can calm down and slow down the onset discussion re her intoleranc e of the advair 500 will decrease to the 250 dose Hypertensive disorder 38 105979 I10 bps are controlled with her meds Type 2 pat betes mellitus 78027802 E11.9 A1C was last 7.6 and before [...] but she is not confident Morbid obesity 836233107 E66.01 Has gained weight due to poor diet/exerc ise will try a wgt loss clinic as i feel if we can curb her appetite she will have an easier time to lose wgt [id number] Steve Park DO [facility] Internal Medicine [address] [facility] [address],[place] [address] 09/18/2020 10:42:11 09/18/2020 11:57:05 Asthma 000212805 J45.909 relates she has been having trouble during pollen season but overall is pretty well controlled and knows when she is about to get attack and can calm down and slow down the onset discussion re her intoleranc e of the advair 500 will decrease to the 250 dose Hypertensive disorder 38 640867 I10 bps are controlled with her meds Type 2 pat betes mellitus 81783292 E11.9 A1C was 9.3 now very poor [...] of control rechk 3 months Sleep apnea 18591694 G47 .30 discussion re cpap and its mask not fitting well Sleep has been poor for long time now 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 we are wondering if she is a candidate for post pharynx surgery Depressive disorder 5215 9001 F32.9 long detailed discussion and hx of her issues as well as prior meds we will refer her to her prior provider ms judah mataailinmarques [id number] Steve Park DO [facility] Internal Medicine [address] [facility] [address],[place] [address] 12/25/2020 10:51:57 12/25/2020 11:45:33 Type 2 diabetes mellitus 51853397 E11.9 A1C is now 7.4 and was [...] control rechk 3 months Hypertensive disorder 38 905768 I10 bps are controlled with her meds Hypercholesterolemia 136 79484 E78.00 Well controlled now but will have her stop the atorvastat to see if GI is better Asthma 400728565 J45.90 9 still having trouble relates she has been having trouble during pollen season but overall is pretty well controlled and knows when she is about to get attack and can calm down and slow down the onset discussion re her intoleranc e of the advair 500 will decrease to the 250 dose Sleep apnea 56278559 G47 .30 she is still following the pulmonolog ist discussion re cpap and its mask not fitting well Sleep has been poor for long time now 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 we are wondering if she is a candidate for post pharynx surgery [id number] BOYD CHAIREZ [facility] Medicine [address] [facility] [address],[place] [address] 02/19/2021 15:35:50 02/19/2021 16:20:08 Asthma 991394497 J45.20 stable Pain in right knee 33040 24744 99900 M25.561 will fu with XR Chondromal acia of right patella 7715067848 1540120 M22.41 Jimenez injury 406694566 S8 9.91XA will fu with XRwill need MRI, very possible tissue tear, medical meniscus and medial ligament Cellulitis 672549830 L03 .90 will start on short course of abxjoint is hot and swollen with surroundin g redness and laceration anterior patella, possible invasion of bacteria through wound [id number] Steve Park, [facility] [address] [facility],[place] [address] 03/05/2021 11:55:23 03/05/2021 12:40:39 Type 2 diabetes mellitus 86272489 E11.9 A1C is now8.1 7.4 in november [...] control rechk 3 months Hypertensive disorder 38 469558 I10 bps are controlled with her meds Asthma 604041013 J45.90 9 still having trouble relates she has been having trouble during pollen season but overall is pretty well controlled and knows when she is about to get attack and can calm down and slow down the onset discussion re her intoleranc e of the advair 500 will decrease to the 250 dose Osteoarthr itis of knee 485591555 M17.9 Pain is worse - waiting to have surgery on december 15 Onychomyco sis of toenails 205926763 B35.1 we will refer her to podiatry [id number] Steve Park [facility] [address] [facility],[place] [address] 06/25/2021 08:22:42 06/25/2021 13:29:23 Type 2 diabetes mellitus 18150495 E11.65 A1C is still 8.1 7.4 in [...] control rechk 3 months Hypertensive disorder 38 678249 I10 bps are controlled with her meds Asthma 929991990 J45.90 9 still having trouble relates she has been having trouble during pollen season but overall is pretty well controlled and knows when she is about to get attack and can calm down and slow down the onset discussion re her intoleranc e of the advair 500 will decrease to the 250 dose Adenomatou s polyp of colon 153062824 D12.6 Depressive disorder 3548 9007 F32.9 long detailed discussion and hx of her issues as well as prior meds increase britany 120mg duloxetiun e we will refer her to her prior provider ms judah amador [id number] Steve Park [facility] [address] [facility] [address],[employer] [place] [address] 08/13/2021 08:16:08 08/13/2021 14:05:07 Hypertensive disorder 83097255 I10 bps are controlled with her meds Type 2 pat betes mellitus 86744325 E11.65 A1C is still 8.1 7.4 in [...] out of control rechk 3 months Asthma 700555588 J45.90 9 still having trouble relates she has been having trouble during pollen season but overall is pretty well controlled and knows when she is about to get attack and can calm down and slow down the onset discussion re her intoleranc e of the advair 500 will decrease to the 250 dose Morbid obesity 596908306 E66.01 Has gained weight due to poor diet/exerc ise will try a wgt loss clinic as i feel if we can curb her appetite she will have an easier time to lose wgt [id number] Steve Park DO [facility] Internal Medicine [address] [facility],[place] [address] 04/01/2022 12:03:00 04/01/2022 13:10:53 Type 2 diabetes mellitus 07707908 E11.65 sugars are worse a1c is 9.7 complete out of controllon g discussion we will need the monitor continuous Depressive disorder 3127 3002 F32.9 long detailed discussion and hx of her issues as well as prior meds increase britany 120mg duloxetiun e we will refer her to her prior provider ms judah amador History of left total knee replacement 5636597795 975276 Z96.652 will need to get her protected [id number] Steve Park [facility] [address] [facility],[place] [address] 10/02/2022 14:23:07 10/02/2022 15:53:54 Hypertensive disorder 77118872 I10 bps are controlled with her meds Type 2 pat betes mellitus 93761774 E11.65 sugars are worse a1c is 8.1 and we will await the a1c pending' long discussion we will need the monitor continuous given elevated sugars before each meal she will increase the dose of Humalog by 2 units each level Sleep apnea [id number] G47 .30 she is still following the pulmonolog ist discussion re cpap and its mask not fitting well Sleep has been poor for long time now 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 we are wondering if she is a candidate for post pharynx surgery Asthma [id number] J45.90 9 still having trouble relates she has been having trouble during pollen season but overall is pretty well controlled and knows when she is about to get attack and can calm down and slow down the onset discussion re her intoleranc e of the advair 500 will decrease to the 250 dose Morbid obesity 855839290 E66.01 Has gained weight due to poor diet/exerc ise in the summer will try a wgt loss clinic as i feel if we can curb her appetite she will have an easier time to lose wgt Screening mammography 24 880614 Z12.31 pt refuses due to painful experience Depressive disorder 6995 0625 F32.9 feeling much better overall with the bupropionw e will continue [id number] Steve Park DO [facility] Internal Medicine [address] [facility],[place] [address] 01/10/2023 08:42:01 01/10/2023 10:02:11 Hypercholesterolemia 56740764 E78.00 Well controlled now but will have her stop the atorvastat to see if GI is better Asthma 922977108 J45.90 9 still having trouble at times relates she has been having trouble during pollen season but overall is pretty well controlled and knows when she is about to get attack and can calm down and slow down the onset discussion re her intoleranc e of the advair 500 will decrease to the 250 dose Hypertensive disorder 38 941915 I10 bps are controlled with her meds Type 2 pat betes mellitus 00433102 E11.65 sugars are even worse now at 9.5 her prior was a1c is 9.7 long discussion we will need the monitor continuous given elevated sugars before each meal she will increase the dose of Humalog by 2 units each level Sleep apnea 28935046 G47 .30 she is still following the pulmonolog ist discussion re cpap and its mask not fitting well Sleep has been poor for long time now 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 we are wondering if she is a candidate for post pharynx surgery Screening mammography 24 075000 Z12.31 pt refuses due to painful experience [id number] Steve Park DO [facility] Internal Medicine [address] [facility] [address],[place] [address] 04/11/2023 08:50:54 04/11/2023 13:24:32 Asthma 904116656 J45.909 has been fairly stable PRIOR still having trouble at times relates she has been having trouble during pollen season but overall is pretty well controlled and knows when she is about to get attack and can calm down and slow down the onset discussion re her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
[2024-11-03 13:51] LABS: Alanine Aminotransferase 27 U/L (0-31); Albumin Level 4.2 g/dL (3.5-5.0); Alkaline Phosphatase 105 U/L (39-117); Anion Gap 13 (12-20); Aspartate Amino Transferase 40 U/L (5-31); Bilirubin Total 0.3 mg/dL (0.0-1.0); Blood Urea Nitrogen 13 mg/dL (9-16); Calcium 9.6 mg/dL (8.4-10.2); Carbon Dioxide 26 mmol/L (22-29); Chloride 107 mmol/L (96-108); Estimated Glomerular Filt Rate > 60; Glucose Random 85 mg/dL (60-115); Potassium 3.8 mmol/L (3.3-5.1); Sodium 142 mmol/L (135-145); Total Protein 7.7 g/dL (6.5-8.0)
== END 2024-11-03 10:02 | disposition home or self-care (01) ==
LOC: HO.MANLDS 10:01
PROVIDERS: Visit Provider Physician Assistant
DX: N18.9 Chronic kidney disease, unspecified (principal)
CPT/HCPCS: 36415; 80053

== ENCOUNTER 2025-05-13 09:34 | Outpatient (REF) | payer OTHER, SELFPAY ==
--- OUTSIDE RECORDS SUMMARY | 2025-05-13 10:41 | XMS_ITS | Encounter Summary ---
Author Organization [facility] Address [address] [facility] [address] [place] [address] Phone Care Team Providers Care Entry Driver Operator Name Role Phone Steve Price Primary Care Provider Jayden Rice MD Unavailable [phone] Jean Mccarty MD Unavailable [phone] Andrew Mcmahan MD Unavailable [phone] Encounter Details Date Type Department Care Team (Late st Contact Info) Description 03/16/[address] [facility] Radiology [address] [place] [address] Social History Tobacco Use Types Packs/Day Years Used Date Smoking Tobacco: Never Smokeless Tobacco: Never Alcohol Use Standard Drinks/Week Comments Not Currently 0 (1 standard drink = 0.6 oz pur e alcohol) Child or Family Care Answer Date Record ed Do you have problems with on e of the following making it difficult for you to work, study, or receive health care? No 01/15/2024 Education Answer Date Recorded Are you interested in help w ith more adult education (for example, completing high school, GED, job training, learning the [place] language, technical skills, or developing parenting skills)? No 01/15/2024 Are you concerned about learning? Not on file 01/15/2024 No 01/15/2024 Yes 01/15/2024 Food Answer Date Recorded Within the past 6 months we worried whether our food would run out before we got money to buy more. I choose not to answer 01/15/2024 Within the past 6 months the food we bought just didn't last and we didn't have enough money to get more. Never True 01/15/2024 Residential Stability Answer Date Recor ded What is your housing situation today? I have sheldon eisenberg 01/15/2024 How many times have you move d in the past 12 months? Zero (I did not move) 01/15/2024 Paying for Meds Answer Date Recorded Do you have trouble paying for medicines? I adrienne se not to answer 01/15/2024 Paying Utility Bills Answer Date Record ed Do you have trouble paying your heating or elect ricity bill? No 01/15/2024 Transportation Answer Date Recorded Has the lack of transportati on kept you from medical appointments or from getting medications? No 01/15/2024 Digital Access Answer Date Recorded No 12/07/2022 No 12/07/2022 Reliable internet access at home? Not on file 12/07/2022 Device with a working camera? Not on file Intimate Partner Violence Answer Date R ecorded Are you denied basic needs s uch as food, clothing, or medical care? No 03/01/2024 In the past 12 months have y ou been in a relationship with a person who hurts, threatens, or tries to control you? No 03/01/2024 Are you denied basic needs s uch as food, clothing, or medical care? No 03/01/2024 In the past 12 months have y ou been in a relationship with a person who hurts, threatens, or tries to control you? No 03/01/2024 Comments No Sex and Gender Information Value Date Recorded Sex Assigned at Female 12/26/2023 4:42 PM EDT Legal Sex Female 9:39 PM EDT Gender Identity Female 12/26/2023 4:42 PM EDT Sexual Orientation Straight 12/26/2023 4: 42 PM EDT documented as of this encounter Plan of Treatment Upcoming Encounters Date Type Department Care Team (Late st Contact Info) Description 12/03/2024 Procedure Pass [facility] CT Imaging, [address] [place] [address] 05/20/2025 11:30 AM EST Appointment [facility] CT Imaging, [place] [address] Jean Mccarty MD [address] [place] [address] [email or web address] 05/20/2025 2:40 PM EST Office Visit [facility] Urology [address] [facility] [address] [place] [address] Jean Mccarty MD [address] [place] [address] [email or web address] documented as of this encounter Visit Diagnoses Not on filedocumented in this encounter Care Teams Entry Driver Operator Relationship Specialty Start Date End Date Steve Price DO josé PCP - General Internal Medicine 06/17/19 Jayden Rice MD Urology 12/26/23 Jean Mccarty MD [address] [place] [address] [email or web address] Urology 12/29/23 Andrew Mcmahan MD [address] [place] [address] [email or web address] Medical Oncology 12/29/23 documented as of this encounter Additional Source Comments The information contained in this document represents components of the legal health record. It is not the complete legal health record.[facility]
--- OUTSIDE RECORDS SUMMARY | 2025-05-13 10:41 | XMS_ITS | Encounter Summary ---
Author Organization [facility] Address [address] [place] [address] Phone Care Team Providers Care Vocational Nurse Name Role Phone Reza Osullivan MD Unavailable Steve Price DO Primary Care Provider [phone] Jayden Rice MD Unavailable [phone] Jean Mccarty MD Unavailable Andrew Mcmahan MD Unavailable Encounter Details Date Type Department Care Team (Late st Contact Info) Description 06/17/2019 Transcribe Orders [address] [address] Steve Price DO [address] [facility] [place] [address] Type 2 diabetes mellitus without complication, unspecified whether terminal make up operator insulin use (Primary Dx) Social History Tobacco Use Types Packs/Day Years Used Date Smoking Tobacco: Never Assessed Comments Unknown Sex and Gender Information Value Date Recorded Sex Assigned at Female 12/26/2023 4:42 PM EDT Legal Sex Female 9:39 PM EDT Gender Identity Female 12/26/2023 4:42 PM EDT Sexual Orientation Straight 12/26/2023 4: 42 PM EDT documented as of this encounter Plan of Treatment Upcoming Encounters Date Type Department Care Team (Late st Contact Info) Description 12/03/2024 Procedure Pass [facility] CT Imaging, [place] [address] [place] [address] 05/20/2025 11:30 AM EST Appointment [facility] CT Imaging, [place] [address] [place] [address] Jean Mccarty MD [address] [place] [address] [email or web address] 05/20/2025 2:40 PM EST Office Visit [facility] Urology [address] [facility] [address] [place] [address] Jena Mccarty MD [address] [place] [address] [email or web address] documented as of this encounter Results * Microalbumin/creatinine ratio, random urine (06/17/2019 9:18 AM EST) Pathologist [facility] URINE MICROALBUMIN <1.2 0 - 2.3 mg/dL [facility] URINE CREATININE 41 mg/dL [facility] MICROALB/CRE RATIO NOT CALCULATED 0 - 20 mg/g Cre [facility] Comment:due to Microalbumin <1.2 Urine (Urine) 06/17/2019 9:1 8 AM EST 06/17/2019 9:45 AM EST us Steve A Bigda DO URINE ORDERABLES Final Result [facility] [address] [place] [address] * (ABNORMAL) Lipid panel (06/17/2019 9:18 AM EST) HDL 62 mg/dL [facility] Comment: Interpretation <40 mg/dL: Low HDL cholesterol (major risk factor for CHD) Greater than or equal to 60 mg/dL: High HDL cholesterol ( negative risk factor for CHD) HDL - cholesterol is affected by a number of factors, e.g. smoking, excerise, hormones, sex and age. CHOLESTEROL 185 0 - 240 mg/dL [facility] TRIGLYCERIDES 99 30 - 160 mg/dL [facility] LDL 103 50 - 129 mg/dL [facility] Comment: LDL levels in terms of risk for coronary heart disease: <100 mg/dL: Optimal 100-129 mg/dL: Near or above optimal 130-159 mg/dL: Borderline high 160-189 mg/dL: High >190 mg/dL: Very High CARDIAC RISK RATIO 3.0(L) 3.3 - 4.4 [facility] Blood 06/17/2019 9:18 AM EST 06/17/2019 9:45 AM EST us Steve Price DO LAB BLOOD ORDERABLES Final Resul t Performing Organization Address City/State/[facility] Co de Phone Number [address] [address] * (ABNORMAL) Comprehensive metabolic panel (06/17/2019 9:18 AM EST) SODIUM 143 133 - 146 mmol/L [facility] POTASSIUM 4.7 3.3 - 5.1 mmol/L [facility] CHLORIDE 102 96 - 108 mmol/L [facility] CO2 30 21 - 35 mmol/L [facility] BUN 15 6 - 19 mg/dL [facility] CREATININE <0.50(L) 0.5 - 1.5 mg/dL [facility] GLUCOSE 105(H) 70 - 99 mg/dL [facility] ALBUMIN 4.2 3.9 - 4.8 g/dL [facility] TOTAL PROTEIN 7.8 6.5 - 8.0 g/dL [facility] CALCIUM 9.7 8.4 - 10.3 mg/dL [facility] ALKALINE PHOSPHATASE 122(H) 39 - 117 U/L [facility] TOTAL BILIRUBIN 0.3 0.0 - 1.2 mg/dL [facility] AST 18 0 - 37 U/L [facility] ALT 21 0 - 40 U/L [facility] GLOBULIN 3.6 1 - 4.8 g/dL [facility] EGFR Not Done >59 mL/min/1.7 3m2 [facility] ANION GAP 16 10 - 20 mmol/L [facility] Blood 06/17/2019 9:18 AM EST 06/17/2019 9:45 AM EST us Steve Anderson Gopalholly LAB BLOOD ORDERABLES Final Resul t [facility] [address] [place] [address] documented in this encounter Visit Diagnoses Diagnosis Type 2 diabetes mellitus without complication, unspecified whether terminal make up operator insulin use- Primary documented in this encounter Care Teams Vocational Nurse Relationship Specialty Start Date End Date Steve Price DO [address] [place] [address], [address] [address] josé PCP - General Internal Medicine 06/17/19 Reza Osullivan MD [address] [place] [address], [address] [address] [email or web address] Historical LMR Provider 05/01/17 07/21/21 Jayden Rice MD [address] [place] [address], [address] [address] Urology 12/26/23 Jean Mccarty MD [address] [place] [address] [email or web address] Urology 12/29/23 Andrew Mcmahan MD [address] [place] [address] [email or web address] Medical [email or web address] 12/29/23 documented as of this encounter Additional Source Comments The information contained in this document represents components of the legal health record. It is not the complete legal health record.[facility]
--- OUTSIDE RECORDS SUMMARY | 2025-05-13 10:41 | XMS_ITS | Encounter Summary ---
Author Organization [facility] Address [address] [place] [address] Phone Care Team Providers Care Regional Agronomist Name Role Phone Steve Price DO Primary Care Provider [phone] Jayden Rice MD Unavailable [phone] Jean Mccarty MD Unavailable [phone] Andrew Mcmahan MD Unavailable [phone] Encounter Details Date Type Department Care Team (Late st Contact Info) Description 04/11/2023 Transcribe Orders [facility] [address] [place] [address] Steve Price DO [address] [facility] [place] [address] josé Type 2 diabetes mellitus without complication, without long-term current use of insulin (Primary Dx) Social History Tobacco Use Types Packs/Day Years Used Date Smoking Tobacco: Never Smokeless Tobacco: Never Alcohol Use Standard Drinks/Week Comments Not Currently 0 (1 standard drink = 0.6 oz pur e alcohol) Education Answer Date Recorded Are you interested in more education? Not on davide e 11/08/2022 Are you concerned about learning? Not on file 11/08/2022 No 11/08/2022 No 11/08/2022 Digital Access Answer Date Recorded No 12/07/2022 No 12/07/2022 Reliable internet access at home? Not on file 12/07/2022 Device with a working camera? Not on file Comments Unknown Sex and Gender Information Value Date Recorded Sex Assigned at Female 12/26/2023 4:42 PM EDT Legal Sex Female 9:39 PM EDT Gender Identity Female 12/26/2023 4:42 PM EDT Sexual Orientation Straight 12/26/2023 4: 42 PM EDT documented as of this encounter Plan of Treatment Upcoming Encounters Date Type Department Care Team (Late st Contact Info) Description 12/03/2024 Procedure Pass [facility] CT Imaging, [address] [place] [address] 05/20/2025 11:30 AM EST Appointment [facility] CT Imaging, [address] [place] [address] Jean Mccarty MD [address] [place] [address] [email or web address] 05/20/2025 2:40 PM EST Office Visit [facility] Urology [address] [facility] [place] [address] Jean Mccarty MD [address] [place] [address] [email or web address] documented as of this encounter Visit Diagnoses Diagnosis Type 2 diabetes mellitus without complication, without long-term current use of insulin- Primary documented in this encounter Care Teams Regional Agronomist Relationship Specialty Start Date End Date Steve Price DO josé PCP - General Internal Medicine 06/17/19 Jayden Rice MD Urology 12/26/23 Jean Mccarty MD [address] [place] [address] [email or web address] Urology 12/29/23 Andrew Mcmahan MD [address] [place] [phone] [email or web address] Medical Oncology 12/29/23 documented as of this encounter Additional Source Comments The information contained in this document represents components of the legal health record. It is not the complete legal health record.[facility]
--- OUTSIDE RECORDS SUMMARY | 2025-05-13 10:41 | XMS_ITS | Encounter Summary ---
Author Organization [facility] Address [address] [facility] [address] [place] [address] Phone Care Team Providers Care Roll Finisher Name Role Phone Steve Price Primary Care Provider Jayden Rice MD Unavailable [phone] Jean Mccarty MD Unavailable [phone] Andrew Mcmahan MD Unavailable [phone] Encounter Details Date Type Department Care Team (Late st Contact Info) Description 03/01/2024 Procedure Pass [facility] Periop [address] [place] [address] Social History Tobacco Use Types Packs/Day Years [...] high school, GED, job training, learning the New Zealander language, technical skills, or developing parenting skills)? [...] PM EDT documented as of this encounter Functional Status * Calculated C-SSRS Risk Score (Lifetime/Recent) Answer Date of Assessment Author No Risk Indicated 03/01/2024 7:52 PM EDT Diomedes Rose, RN * [place] Suicide Severity Rating Scale (Screener/Recent Self-Report) Question Answer Date of Assessment Author 1. Wish to be (Past 1 Month) No 024 7:52 PM EDT Bhavana Rose RN 2. Non-Specific Active Suici mukul Thoughts (Past 1 Month) No 03/01/2024 7:52 PM EDT Bhavana Rose RN 6. Suicidal Behavior (Lifetime) No 7:52 PM EDT Bhavana Rose RN documented as of this encounter Plan of Treatment Upcoming Encounters Date Type Department Care Team (Late st Contact Info) Description 12/03/2024 Procedure Pass [facility] CT Imaging, [address] [place] [address] 05/20/2025 11:30 AM EST Appointment [facility] CT Imaging, [address] [place] [address] Jean Mccarty MD [address] [place] [address] [email or web address] 05/20/2025 2:40 PM EST Office Visit [facility] Urology [address] [place] [address] AS[address] [place] [address] Jean Mccarty MD [address] [place] [address] [email or web address] documented as of this encounter Visit Diagnoses Not on filedocumented in this encounter Care Teams Roll Finisher Relationship Specialty Start Date End Date Steve Price DO josé [email or web address] PCP - General Internal Medicine 06/17/19 Jayden Rice MD Urology 12/26/23 Jean Mccarty MD [address] [place] [address] [email or web address] Urology 12/29/23 Andrew Mcmahan MD [address] [place] [address] [email or web address] Medical Oncology 12/29/23 documented as of this encounter Additional Source Comments The information contained in this document represents components of the legal health record. It is not the complete legal health record.[facility]
--- OUTSIDE RECORDS SUMMARY | 2025-05-13 10:41 | XMS_ITS | Clinical Summary ---
Author Organization [facility] Address [facility] [employer] [address] [address] Phone Care Team Providers Care Cash Management Specialist Name Role Phone Steve Price Primary Care Provider [phone] Jayden Rice MD Unavailable [phone] Jean Mccarty MD Unavailable [phone] Andrew Mcmahan MD Unavailable [phone] Allergies Active Allergy Reactions Criticality Noted Date Comments Other 01/27/2020 seasonal Medications cholecalciferol, vitamin D3, 1,000 unit capsule Take 1 capsule by mouth daily. Active metFORMIN (GLUCOPHAGE-XR) 750 MG 24 hr tablet Take 750 mg by mouth 2 (two) times a day. with evening meal Active fluticasone propion-salmeter oL (ADVAIR DISKUS) 100-50 mcg/dose DISKUS Inhale 1 puff into the lungs daily. 250 mcg Active montelukast (SINGULAIR) 10 mg tablet Take 10 mg by mouth nightly at bedtime. 0 Active atorvastatin (LIPITOR) 40 MG tablet Take 40 mg by mouth daily. 0 Active lisinopril (PRINIVIL,ZESTRI L) 40 MG tablet Take 40 mg by mouth daily. 0 Active TRESIBA FLEXTOUCH U-200 200 unit/mL (3 mL) InPn injection pen Inject 60 Units under the skin nightly at bedtime. 1 Active insulin lispro (HUMALOG U-100 INSULIN) 100 unit/mL Crtg Inject under the skin 3 (three) times a day with meals. Must be used with delivery device Sliding scale with meals: <150: 10 units 151-200: 12 units 201-250: 15 units Active albuterol 90 mcg/actuation inhaler Inhale 2 puffs into the lungs every 4 (four) hours as needed. Active amLODIPine (NORVASC) 10 MG tablet Take 10 mg by mouth daily. 4 Active amoxicillin (AMOXIL) 500 MG capsule Take 2,000 mg by mouth as directed. For dental cleanings Active ibuprofen (ADVIL) 200 mg capsule Take 400 mg by mouth every 6 (six) hours as needed. Active DEXCOM G6 SENSOR Stella 4 Active acetaminophen (TYLENOL) 325 mg tablet Take 3 tablets (975 mg total) by mouth every 6 (six) hours. 4 Active DEXCOM G6 TRANSMITTER Stella as directed. 4 Active psyllium (KONSYL) Pack Take 1 packet by mouth 2 (two) times a day. Active OZEMPIC 0.25 mg or 0.5 mg (2 mg/3 mL) subcutaneous injection pen Inject 0.5 mg every week by subcutaneous route as directed for 90 days. 5 Active Active Problems Problem Noted Date Diagnosed Date History of kidney cancer 03/01/2024 Diabetes mellitus 01/05/2022 Immunizations Immunization Administration Dates Next Due COVID-19 (Pre-05/05) Moderna Vaccine, mRNA, PF 0 10/30/2020,10/02/2020 Influenza Quadrivalent Preservative Free IM 02/2021 Pneumococcal polysaccharide PPSV23 11/30/2004 Tdap 09/18/2020 Family History Medical History Relation Comments Cancer Father Coronary artery disease Paternal Grandmother Relation Status Comments Father Alive Paternal Grandmother Social History Tobacco Use Types Packs/Day Years Used Date Smoking Tobacco: Never Smokeless Tobacco: Never Tobacco Cessation:Counseling Given: Not Answered Alcohol Use Standard Drinks/Week Comments Not Currently [...] high school, GED, job training, learning the Tunisian language, technical skills, or developing parenting skills)? [...] have trouble paying for medicines? I adrienne not to answer 01/15/2024 Paying Utility Bills [...] Orientation Straight 12/26/2023 4: 42 PM EDT Last Filed Vital Signs Vital Sign Reading Time Taken Comments Blood Pressure 122/58 12/03/2024 2:19 PM EDT Pulse 76 12/03/2024 2:19 PM EDT Temperature 36.4 C (97.6 F) 03/16/2024 2:21 PM EDT Respiratory Rate 20 03/02/2024 12:30 PM EDT Oxygen Saturation 100% 03/16/2024 2:21 PM EDT Inhaled Oxygen Concentration - - Weight 97.5 kg (215 lb) 12/03/2024 2:16 PM EDT Height 156.2 cm (5' 1.5 ) 12/03/2024 2:16 PM EDT Body Mass Index 39.97 12/03/2024 2:16 PM EDT Plan of Treatment Upcoming Encounters Date Type Department Care Team (Late st Contact Info) Description 12/03/2024 Procedure Pass [facility] CT Imaging, [address] [place] [address] 05/20/2025 11:30 AM EST Appointment [facility] CT Imaging, [address] [place] [address] Jean Mccarty MD [address] [place] [address] [email or web address] 05/20/2025 2:40 PM EST Office Visit [facility] Urology [address] [place] [address] ASB2-[address] [place] [address] Jean Mccarty MD [address] [place] [id number] [email or web address] Health Maintenance Due Date Last Done Comments DEPRESSION SCREENING 1978 HEPATITIS C SCREENING 1984 HIV ONE-TIME SCREENING (18-65 YEARS) 1984 PAP SMEAR 1987 PNEUMOCOCCAL VACCINES (50+ years) (2 of 2 - PCV) 11/30/2005 11/30/2004 MAMMOGRAM 2006 COLOGUARD 2011 COLONOSCOPY 2011 COLORECTAL CANCER SCREENING 2011 FIT TEST 2011 FOBT 2011 SIGMOIDOSCOPY 2011 VIRTUAL COLONOSCOPY 2011 RSV VACCINE (1 - Risk 50-74 years 1-dose series) 2016 ZOSTER VACCINES (1 of 2) 2016 DIABETIC EYE EXAM 01/05/2022 HEMOGLOBIN A1C 08/26/2024 02/24/2024, 03/15, 05/31/2020, Additional history exists INFLUENZA VACCINE (#1) 2025 , 07/19/2023, 09/18/2020 COVID-19 VACCINE (5 - season) 2025 03/08/2024, 07/26/2023, 10/30/2020, Additional history exists CREATININE LEVEL 03/19/2025 03/19/2024, , 03/01/2024, Additional history exists POTASSIUM LEVEL 03/19/2025 03/19/2024, 02/12, 03/01/2024, Additional history exists BLOOD PRESSURE 06/05/2025 12/03/2024 Adult Td,Tdap Booster 09/18/2030 09/18/2020 SMOKING STATUS SCREENING (Once After 26 Yrs) Completed 12/03/2024 HEPATITIS A VACCINES Aged Out No long er eligible based on patient's age to complete this topic HIB VACCINES Aged Out No longer eligi ble based on patient's age to complete this topic MENINGOCOCCAL VACCINES (ACWY) Aged Out No longer eligible based on patient's age to complete this topic MENINGOCOCCAL VACCINES (B) Aged Out N o longer eligible based on patient's age to complete this topic Medical Devices Implanted Type Area Class C Truck Driver Device Identifier Shelf Expiration Date Model / Serial / Lot Left Total Knee Replacement Pins Ankle (Right) Leg Replacement Lense Right Eye Procedures Procedure Name Priority Date/Time Associated Diagnosis Comments BASIC METABOLIC PANEL Routine 03/19/2024 10:13 AM EDT Renal mass HEMOGLOBIN A1C Routine 02/24/2024 6:06 PM EDT Type 2 diabetes mellitus without complication, without long-term current use of insulin from Last 3 Months or Most Recently Relevant to Health Maintenance Results * (ABNORMAL) Basic metabolic panel (03/19/2024 10:13 AM EDT) Pathologist [facility] SODIUM 143 133 - 146 mmol/L [employer] [facility] CHLORIDE 105 96 - 108 mmol/L [facility] [facility] POTASSIUM 3.6 3.3 - 5.1 mmol/L [employer] [facility] [facility] CO2 27 21 - 35 mmol/L [employer] [facility] [facility] BUN 20(H) 6 - 19 mg/dL [facility] [facility] CREATININE 0.60 0.5 - 1.5 mg/dL [employer] [facility] [facility] GLUCOSE 147(H) 70 - 99 mg/dL [facility] [facility] CALCIUM 9.3 8.4 - 10.3 mg/dL [employer] EGFR 105 >59 mL/min/1.7 3m2 [facility] Comment:Estimated glomerular filtration rate calculated using the CKD-EPI refit equation. ANION GAP 15 10 - 20 mmol/L [facility] Blood 03/19/2024 10:1 3 AM EDT 03/19/2024 10:19 AM EDT Delaney Limon PA-C LAB BLOOD ORDERABLES Final Result [facility] [address] [place] [address] * (ABNORMAL) Hemoglobin A1c (02/24/2024 6:06 PM EDT) [facility] HEMOGLOBIN A1C 7.8(H) 4.2 - 5.6 % [address] [facility] Comment: HbA1c levels 5.7-6.4% represent pre-diabetes, indicating impaired glucose control and an increased risk of developing diabetes. The diagnostic HbA1c level for diabetes is 6.5% or greater. HbA1c is performed by the Micaela Ilsa-quant immunoassay method which does not detect (incidental) hemoglobin variants. Hemoglobin electrophoresis should be ordered in patients with suspected hemoglobinopathies. CALC MEAN BLD GLUC 177 mg/dL 8 [address] [facility] Comment:The Calculated Mean Blood Glucose (CMBG) represents the estimated average glucose calculated from the measured hemoglobin A1c (HbA1c). There is no established normal range for the CMBG, however a 5.6% HbA1c (upper limit of normal) represents a CMBG of 114 mg/dL. 02/24/2024 6:06 PM EDT 02/24/2024 6:12 PM EDT Jean Mccarty MD LAB BLOOD ORDERABLES Final Result Performing Organization Address City/State/[facility] Co de Phone Number [address] [facility] [address] [place] [address] from Last 3 Months or Most Recently Relevant to Health Maintenance Insurance [employer] Danger [facility] [employer] [facility] Care Teams Cash Management Specialist Relationship Specialty Start Date End Date Steve Price DO josé [email or web address] PCP - General Internal Medicine 06/17/19 Jayden Rice MD [email or web address] Urology 12/26/23 Jean Mccarty MD [address] [place] [phone] [email or web address] 12/29/23 Andrew Mcmahan MD [address] [place] [id number] [email or web address] Medical Oncology 12/29/23 Additional Source Comments The information contained in this document represents components of the legal health record. It is not the complete legal health record.[facility]
--- OUTSIDE RECORDS SUMMARY | 2025-05-13 10:41 | XMS_ITS | Encounter Summary ---
Author Organization [facility] Address [facility] [address] [place] [address] Phone Care Team Providers Care Sugar Cane Planter Name Role Phone Steve Price Primary Care Provider [phone] Jayden Rice MD Unavailable [phone] Jean Mccarty MD Unavailable [phone] Andrew Mcmahan MD Unavailable [phone] Encounter Details Date Type Department Care Team (Late st Contact Info) Description 11/25/2023 Procedure Pass [facility], Ct Scan - [address] [address] Social History Tobacco Use Types Packs/Day Years [...] st Contact Info) Description 12/03/2024 Procedure Pass [facility] CT Imaging, [address] [place] [address] 05/20/2025 11:30 AM EST Appointment [facility] CT Imaging, [address] [place] [address] Jean Mccarty MD [address] [place] [address] [email or web address] 05/20/2025 2:40 PM EST Office Visit [facility] Urology [address] [facility] ASB2-[address] [place] [address] Jean Mccarty MD [address] [place] [address] [email or web address] documented as of this encounter Visit Diagnoses Not on filedocumented in this encounter Care Teams Sugar Cane Planter Relationship Specialty Start Date End Date Steve Price DO josé PCP - General Internal Medicine 06/17/19 Jayden Rice MD Urology 12/26/23 Jean Mccarty MD [address] [place] [address] [email or web address] Urology 12/29/23 Andrew Mcmahan MD [address] [place] [phone] [email or web address] Medical Oncology 12/29/23 documented as of this encounter Additional Source Comments The information contained in this document represents components of the legal health record. It is not the complete legal health record.[facility]
--- OUTSIDE RECORDS SUMMARY | 2025-05-13 10:41 | XMS_ITS | Encounter Summary ---
Author Organization [facility] Address [facility] [employer] [facility] [address] [place] [address] Phone Care Team Providers Care Copy Supervisor Name Role Phone Steve Price Primary Care Provider [phone] Jayden Rice MD Unavailable [phone] Jean Mccarty MD Unavailable [phone] Andrew Mcmahan MD Unavailable [phone] Encounter Details Date Type Department Care Team (Late st Contact Info) Description 06/08/2024 Procedure Pass [facility] CT Imaging, [address] [place] [address] Social History Tobacco Use Types Packs/Day Years [...] high school, GED, job training, learning the Syriac language, technical skills, or developing parenting skills)? [...] st Contact Info) Description 12/03/2024 Procedure Pass [facility] CT Imaging, [address] [place] [address] 05/20/2025 11:30 AM EST Appointment [facility] CT Imaging, [place] [address] Jean Mccarty MD [address] [place] [address] [email or web address] 05/20/2025 2:40 PM EST Office Visit [facility] Urology [address] [facility] ASB2-[address] [place] [address] Jean Mccarty MD [address] [place] [address] [email or web address] documented as of this encounter Visit Diagnoses Not on filedocumented in this encounter Care Teams Copy Supervisor Relationship Specialty Start Date End Date Steve Price DO josé PCP - General Internal Medicine 06/17/19 Jayden Rice MD Urology 12/26/23 Jean Mccarty MD [address] [place] [address] [email or web address] Urology 12/29/23 Andrew Mcmahan MD [address] [place] [phone] [email or web address] Medical Oncology 12/29/23 documented as of this encounter Additional Source Comments The information contained in this document represents components of the legal health record. It is not the complete legal health record.[facility]
--- OUTSIDE RECORDS SUMMARY | 2025-05-13 10:41 | XMS_ITS | Encounter Summary ---
Author Organization [facility] Address [address] [place] [address] Phone Care Team Providers Care Automatic Pinsetter Mechanic Name Role Phone Steve Price Primary Care Provider [phone] Jayden Rice MD Unavailable [phone] Jean Mccarty MD Unavailable [phone] Andrew Mcmahan MD Unavailable Encounter Details Date Type Department Care Team (Late st Contact Info) Description 11/25/2023 Procedure Pass [facility] [address] [place] [address] Social History Tobacco Use Types Packs/Day Years [...] st Contact Info) Description 12/03/2024 Procedure Pass [facility] CT Imaging, [address] [place] [address] 05/20/2025 11:30 AM EST Appointment [facility] CT Imaging, [address] [place] [address] Jean Mccarty MD [address] [place] [address] [email or web address] 05/20/2025 2:40 PM EST Office Visit [facility] Urology [address] [place] [address] ASB2-[address] [place] [address] Jean Mccarty MD [address] [place] [phone] [email or web address] documented as of this encounter Visit Diagnoses Not on filedocumented in this encounter Care Teams Automatic Pinsetter Mechanic Relationship Specialty Start Date End Date Steve Price DO josé [email or web address] PCP - General Internal Medicine 06/17/19 Jayden Rice MD Urology 12/26/23 Jean Mccarty MD [address] [place] [address] [email or web address] Urology 12/29/23 Andrew Mcmahan MD [address] [place] [address] [email or web address] Medical Oncology 12/29/23 documented as of this encounter Additional Source Comments The information contained in this document represents components of the legal health record. It is not the complete legal health record.[facility]
[2025-05-13 13:48] LABS: Hemoglobin A1C 99.4868 umol/L; Total Hemoglobin (HGBA1C) 2292.8210 umol/L
[2025-05-13 13:52] LABS: Alanine Aminotransferase 15 U/L (0-31); Albumin Level 4.0 g/dL (3.5-5.0); Alkaline Phosphatase 105 U/L (39-117); Anion Gap 13 (12-20); Aspartate Amino Transferase 20 U/L (5-31); Blood Urea Nitrogen 16 mg/dL (9-16); Calcium 8.8 mg/dL (8.4-10.2); Carbon Dioxide 26 mmol/L (22-29); Chloride 108 mmol/L (96-108); Estimated Glomerular Filt Rate > 60; Potassium 3.8 mmol/L (3.3-5.1); Sodium 143 mmol/L (135-145); Total Protein 7.0 g/dL (6.5-8.0)
== END 2025-05-13 09:35 | disposition home or self-care (01) ==
LOC: HO.MANLDS 09:34
PROVIDERS: Visit Provider Internal Medicine
DX: E11.65 Type 2 diabetes mellitus with hyperglycemia (principal)
CPT/HCPCS: 36415; 80053; 83036

== ENCOUNTER 2025-06-08 10:42 | Outpatient (REF) | payer OTHER, SELFPAY ==
--- OUTSIDE RECORDS SUMMARY | 2025-06-08 12:57 | XMS_ITS | Clinical Summary ---
Author Organization [facility] Address [facility] [employer] [address] [address] Phone Care Team Providers Care Oil Producer Name Role Phone Steve Price Primary Care Provider [phone] Jayden Rice MD Unavailable [phone] Jean Mccarty MD Unavailable [phone] Andrew Mcmahan MD Unavailable [phone] Allergies Active Allergy Reactions Criticality Noted Date [...] as directed for 90 days. 5 Active insulin aspart U-100 (NOVOLOG FLEXPEN U-100 INSULIN) 100 unit/mL (3 mL) injection pen Active Active Problems Problem Noted Date Diagnosed Date History of kidney cancer 03/01/2024 Diabetes mellitus 01/05/2022 Encounters Date Type Department Care Team Description 05/20/2025 2:40 PM EST Office Visit [facility] Urology [address] [facility] [address] [place] [address] Jean Mccarty MD Renal mass (Primary Dx) 05/20/2025 10:38 AM EST - 05/20/2025 11:59 PM EST Hospital Encounter [facility] CT Yomi, [place] [address] Jean Mccarty MD Discharge Disposition: Home or Self Care 12/03/2024 Procedure Pass [facility] CT Yomi, Mis [address] [place] [address] from Last 3 Months Immunizations Immunization Administration Dates Next Due COVID-19 [...] high school, GED, job training, learning the Arabic language, technical skills, or developing parenting skills)? [...] your housing situation today? I have sheldon sing 01/15/2024 How many times have you move [...] - - Weight 97.5 kg (215 lb) 05/20/2025 2:46 PM EST Height 160 cm (5' 3 ) 05/20/2025 2:46 PM EST Body Mass Index 38.09 05/20/2025 2:46 PM EST Plan of Treatment Upcoming Encounters Date Type Department Care Team (Late st Contact Info) Description 11/22/2025 10:00 AM EDT Appointment [address] [address] Jean Mccarty MD [address] [place] [phone] [email or web address] 11/24/2025 9:20 AM EDT Telemedicine [facility] Urology [address] [place] [address] Shandra Brewster PA-C [address] [place] [address] [email or web address] Health Maintenance Due Date Last Done Comments DEPRESSION SCREENING 1978 HEPATITIS C SCREENING 1984 HIV ONE-TIME SCREENING (18-65 YEARS) 1984 PAP SMEAR 1987 PNEUMOCOCCAL VACCINES (50+ years) (2 of 2 - PCV) 11/30/2005 11/30/2004 MAMMOGRAM 2006 COLOGUARD 2011 COLONOSCOPY 2011 COLORECTAL CANCER SCREENING 2011 FIT TEST 2011 FOBT 2011 SIGMOIDOSCOPY 2011 VIRTUAL COLONOSCOPY 2011 ZOSTER VACCINES (1 of 2) 2016 DIABETIC EYE EXAM 01/05/2022 HEMOGLOBIN A1C 08/26/2024 02/24/2024, 03/15, 05/31/2020, Additional history exists CREATININE LEVEL 03/19/2025 03/19/2024, , 03/01/2024, Additional history exists POTASSIUM LEVEL 03/19/2025 03/19/2024, 02/12, 03/01/2024, Additional history exists BLOOD PRESSURE 06/05/2025 12/03/2024 Adult Td,Tdap Booster 09/18/2030 09/18/2020 COVID-19 VACCINE Completed 05/15/2025, , 07/26/2023, Additional history exists INFLUENZA VACCINE Completed 05/15/2025, , 07/19/2023, Additional history exists RSV VACCINE Completed 05/15/2025 SMOKING STATUS SCREENING (Once After 26 Yrs) Completed 05/20/2025 HEPATITIS A VACCINES Aged Out No long er eligible based on patient's age to complete this topic HIB VACCINES Aged Out No longer eligi ble based on patient's age to complete this topic IPV VACCINES Aged Out No longer eligi ble based on patient's age to complete this topic MENINGOCOCCAL VACCINES (ACWY) Aged Out No longer eligible based on patient's age to complete this topic MENINGOCOCCAL VACCINES (B) Aged Out N o longer eligible based on patient's age to complete this topic Medical Devices Implanted Type Area Front Desk Coordinator Device Identifier Shelf Expiration Date Model / Serial / Lot Left Total Knee Replacement Pins Ankle (Right) Leg Replacement Lense Right Eye Procedures Procedure Name Priority Date/Time Associated Diagnosis Comments CT ABDOMEN (RENAL MASS) WITH AND WITHOUT CONTRAST Routine 05/20/2025 11:07 AM EST Renal mass POCT CREATININE WITH ESTIMATED GLUMERULAR FILTRATION RATE (EGFR) Routine 05/20/2025 10:55 AM EST BASIC METABOLIC PANEL (BMP) Routine 03/19/2024 10:13 AM EDT Renal mass HEMOGLOBIN A1C Routine 02/24/2024 6:06 PM EDT Type 2 diabetes mellitus without complication, without long-term current use of insulin from Last 3 Months or Most Recently Relevant to Health Maintenance Results * CT ABDOMEN (RENAL MASS) WITH AND WITHOUT CONTRAST (05/20/2025 11:07 AM EST) Anatomical Region Laterality Modality Abdomen, Abdominal Vasculature C omputed Tomography 05/20/2025 11:3 2 AM EST Impressions 05/22/2025 11:28 PM EST Compared to 12/03/2024: 1. Similar postsurgical changes in the left kidney, status post partial nephrectomy for oncocytoma. 2. Similar 1.0 cm right renal lower pole mass, since at least 10/31/2023, likely solid renal neoplasm. ATTESTATION: Arpit Harris, as teaching physician have reviewed the images, if any, for this patient's exam, and if necessary, have edited the report originally created by Edgardo Bailey. Narrative 05/22/2025 11:[address] ABDOMEN (RENAL MASS) WITH AND WITHOUT CONTRAST Referring clinician's provided indication for this examination in Epic: * Kidney cancer, follow up TECHNIQUE: Multidetector-row CT of the abdomen was performed before and after administration of intravenous contrast using tailored dose modulation techniques. Images were reconstructed in the axial, coronal, and sagittal planes COMPARISON: CT ABDOMEN/PELVIS (LIVER) WITH CONTRAST ; CT ABDOMEN/PELVIS OUTSIDE (NO INTERPRETATION) FINDINGS: Lower Chest: No pleural effusions. Similar sub-5 mm bilateral subpleural nodules (for example 7:54 and 20). Calcified mitral anulus. Liver: No focal lesions. Biliary: No biliary ductal dilatation. Spleen: Unchanged 1.3 cm hypodense lesion (9:961 and 6:72), since at least 10/31/2023, likely benign. Pancreas: No masses or ductal dilatation. Adrenal Glands: No nodules. Kidneys/Ureters: Status post left partial nephrectomy without evidence of local recurrence. Left 2.0 cm left renal cyst. Additional tiny left renal hypodensities, too small to characterize, likely benign. Similar 1.0 cm mildly enhancing right renal lower pole mass (6:150 and 10:37). Right lower pole cortical calcification. No hydronephrosis. Bowel: No dilatation or wall thickening. Colonic diverticulosis. Peritoneum/Retroperitoneum: No masses, pneumoperitoneum, or fluid. Lymph Nodes: No lymphadenopathy by size criteria. Vessels: No abdominal aortic aneurysm. Mild atherosclerosis. Bones/Soft Tissues: No destructive osseous lesions. Multilevel degenerative changes of the spine. Procedure Note Arpit Langston MD, MPH - 05/22/2025 CT ABDOMEN (RENAL MASS) WITH AND WITHOUT CONTRAST Referring clinician's provided indication for this examination in Epic: *Kidney cancer, follow up TECHNIQUE: Multidetector-row CT of the abdomen was performed before andafter administration of intravenous contrast using tailored dosemodulation techniques. Images were reconstructed in the axial, coronal,and sagittal planes COMPARISON: CT ABDOMEN/PELVIS (LIVER) WITH CONTRAST ; CTABDOMEN/PELVIS OUTSIDE (NO INTERPRETATION) FINDINGS: Lower Chest: No pleural effusions. Similar sub-5 mm bilateral subpleuralnodules (for example 7:54 and 20). Calcified mitral anulus. Liver: No focal lesions. Biliary: No biliary ductal dilatation. Spleen: Unchanged 1.3 cm hypodense lesion (9:961 and 6:72), since at least4/, likely benign. Pancreas: No masses or ductal dilatation. Adrenal Glands: No nodules. Kidneys/Ureters: Status post left partial nephrectomy without evidence oflocal recurrence. Left 2.0 cm left renal cyst. Additional tiny left renalhypodensities, too small to characterize, likely benign. Similar 1.0 cm mildly enhancing right renal lower pole mass (6:150 and10:37). Right lower pole cortical calcification. No hydronephrosis. Bowel: No dilatation or wall thickening. Colonic diverticulosis. Peritoneum/Retroperitoneum: No masses, pneumoperitoneum, or fluid. Lymph Nodes: No lymphadenopathy by size criteria. Vessels: No abdominal aortic aneurysm. Mild atherosclerosis. Bones/Soft Tissues: No destructive osseous lesions. Multileveldegenerative changes of the spine. IMPRESSION: Compared to 12/03/2024: 1. Similar postsurgical changes in the left kidney, status post partialnephrectomy for oncocytoma. 2. Similar 1.0 cm right renal lower pole mass, since at least 10/31/2023,likely solid renal neoplasm. ATTESTATION: Arpit Harris, as teaching physician have reviewed theimages, if any, for this patient's exam, and if necessary, have edited thereport originally created by Edgardo Bailey. us Jean Mccarty MD IMG CT XSPECIALTY ORDERABLE S Final Result * POCT Creatinine with Estimated Glomerular Filtration Rate (eGFR) (05/20/2025 10:55 AM EST) Creatinine 0.6 0.5 - 1.0 mg/dL 05/20/2025 10:57 AM EST [facility] SUITE eGFR 104 >59 mL/min/1.7 3m2 05/20/2025 10:57 AM EST [facility] Comment:Estimated glomerular filtration rate calculated using the CKD-EPI refit equation. Blood (Blood) 05/20/2025 10: 55 AM EST 05/20/2025 10:57 AM EST us Jean Mccarty MD LAB POCT DOCKED DEVICE UNSO LICTED RESULTS Final Result [facility] CT & MRI [address] [place] [id number] * (ABNORMAL) Basic metabolic panel (03/19/2024 10:13 AM EDT) SODIUM 143 133 - 146 mmol/L [facility] CHLORIDE 105 96 - 108 mmol/L [facility] POTASSIUM 3.6 3.3 - 5.1 mmol/L [facility] CO2 27 21 - 35 mmol/L [facility] BUN 20(H) 6 - 19 mg/dL [facility] CREATININE 0.60 0.5 - 1.5 mg/dL [facility] GLUCOSE 147(H) 70 - 99 mg/dL [facility] CALCIUM 9.3 8.4 - 10.3 mg/dL [facility] EGFR 105 >59 mL/min/1.7 3m2 [facility] Comment:Estimated glomerular filtration rate calculated using the CKD-EPI refit equation. ANION GAP 15 10 - 20 mmol/L [facility] Blood 03/19/2024 10:1 3 AM EDT 03/19/2024 10:19 AM EDT us Delaney Limon PA-C LAB BLOOD BKR ORDERA BLES Final Result [facility] [address] [place] [address] * (ABNORMAL) Hemoglobin A1c (02/24/2024 6:06 PM EDT) HEMOGLOBIN A1C 7.8(H) 4.2 - 5.6 % [facility] Comment: HbA1c levels 5.7-6.4% represent pre-diabetes, indicating impaired glucose control and an increased risk of developing diabetes. The diagnostic HbA1c level for diabetes is 6.5% or greater. HbA1c is performed by the Micaela Ilsa-quant immunoassay method which does not detect (incidental) hemoglobin variants. Hemoglobin electrophoresis should be ordered in patients with suspected hemoglobinopathies. CALC MEAN BLD GLUC 177 mg/dL 8 [facility] Comment:The Calculated Mean Blood Glucose (CMBG) represents the estimated average glucose calculated from the measured hemoglobin A1c (HbA1c). There is no established normal range for the CMBG, however a 5.6% HbA1c (upper limit of normal) represents a CMBG of 114 mg/dL. 02/24/2024 6:06 PM EDT 02/24/2024 6:12 PM EDT us Jean Mccarty MD LAB BLOOD BKR ORDERABLES Fi nal Result [facility] [address] [place] [address] from Last 3 Months or Most Recently Relevant to Health Maintenance Insurance [employer] [facility] Events Core [employer] [facility] [employer] [facility] CHOICE [facility] CHOICE [facility] CHOICE [employer] [facility]ICE CHOICE [facility] CHOICE [facility] CHOICE Care Teams Oil Producer Relationship Specialty Start Date End Date Steve Price DO [email or web address] PCP - General Internal Medicine 06/17/19 Jayden Rice MD Urology 12/26/23 Jean Mccarty MD [address] [place] [phone] [email or web address] Urology 12/29/23 Andrew Mcmahan MD [address] [place] [phone] [email or web address] Medical Oncology 12/29/23 Additional Source Comments The information contained in this document represents components of the legal health record. It is not the complete legal health record.[facility]
--- OUTSIDE RECORDS SUMMARY | 2025-06-08 12:57 | XMS_ITS | Encounter Summary ---
Author Organization [facility] Address [address] [facility] [address] [place] [address] Phone Care Team Providers Care Presser Hand Name Role Phone Steve Price Primary Care Provider [phone] Jayden Rice MD Unavailable [phone] Jean Mccarty MD Unavailable [phone] Andrew Mcmahan MD Unavailable [phone] Encounter Details Date Type Department Care Team (Late st Contact Info) Description 03/01/2024 Procedure Pass [facility] Periop [address] [place] [address] Social History Tobacco Use Types Packs/Day Years [...] high school, GED, job training, learning the Green[place]ic language, technical skills, or developing parenting skills)? [...] 7:52 PM EDT Diomedes Rose, RN * [place] Suicide Severity Rating Scale (Screener/Recent Self-Report) Question [...] Info) Description 11/22/2025 10:00 AM EDT Appointment [address] [address] Jean Mccarty MD [address] [place] [phone] [email or web address] 11/24/2025 9:20 AM EDT Telemedicine [facility] Urology [facility] [address] [address] Shandra Brewster PA-C [address] [place] [phone] [email or web address] documented as of this encounter Visit Diagnoses Not on filedocumented in this encounter Care Teams Presser Hand Relationship Specialty Start Date End Date Steve Price DO josé PCP - General Internal Medicine 06/17/19 Jayden Rice MD Urology 12/26/23 Jean Mccarty MD [address] [place] [phone] [email or web address] 12/29/23 Andrew Mcmahan MD [address] [place] [phone] [email or web address] Medical Oncology 12/29/23 documented as of this encounter Additional Source Comments The information contained in this document represents components of the legal health record. It is not the complete legal health record.[facility]
--- OUTSIDE RECORDS SUMMARY | 2025-06-08 12:57 | XMS_ITS | Encounter Summary ---
Author Organization [facility] Address [facility] [address] [place] [address] Phone Care Team Providers Care Addictions Therapist Name Role Phone Steve Price Primary Care Provider [phone] Jayden Rice MD Unavailable [phone] Jean Mccarty MD Unavailable [phone] Andrew Mcmahan MD Unavailable [phone] Encounter Details Date Type Department Care Team (Late st Contact Info) Description 11/25/2023 Procedure Pass [facility], Ct Scan - [address] [address] Social History Tobacco Use Types Packs/Day Years [...] Info) Description 11/22/2025 10:00 AM EDT Appointment [facility] [address] [place] [address] Jean Mccarty MD [address] [place] [phone] [email or web address] 11/24/2025 9:20 AM EDT Telemedicine [facility] Urology [address] [place] [address] Shandra Brewster PA-C [address] [place] [phone] [email or web address] documented as of this encounter Visit Diagnoses Not on filedocumented in this encounter Care Teams Addictions Therapist Relationship Specialty Start Date End Date Steve Price DO josé PCP - General Internal Medicine 06/17/19 Jayden Rice MD Urology 12/26/23 Jean Mccarty MD [address] [place] [phone] [email or web address] [email or web address] 12/29/23 Andrew Mcmahan MD [address] [place] [phone] [email or web address] Medical Oncology 12/29/23 documented as of this encounter Additional Source Comments The information contained in this document represents components of the legal health record. It is not the complete legal health record.[facility]
--- OUTSIDE RECORDS SUMMARY | 2025-06-08 12:57 | XMS_ITS | Encounter Summary ---
Author Organization [facility] Address [address] [facility] [address] [place] [address] Phone Care Team Providers Care Senior Manufacturing Test Engineer Name Role Phone Steve Price Primary Care Provider [phone] Jayden Rice MD Unavailable [phone] Jean Mccarty MD Unavailable [phone] Andrew Mcmahan MD Unavailable [phone] Encounter Details Date Type Department Care Team (Late st Contact Info) Description 03/16/2024 Procedure Pass [facility] Radiology [address] [place] [address] Social History Tobacco Use Types Packs/Day Years [...] high school, GED, job training, learning the Chilean language, technical skills, or developing parenting skills)? [...] Info) Description 11/22/2025 10:00 AM EDT Appointment [address] [address] Jean Mccarty MD [address] [place] [phone] [email or web address] 11/24/2025 9:20 AM EDT Telemedicine [facility] Urology [address] [place] [address] Shandra Brewster PA-C [address] [place] [address] [email or web address] documented as of this encounter Visit Diagnoses Not on filedocumented in this encounter Care Teams Senior Manufacturing Test Engineer Relationship Specialty Start Date End Date Steve Price DO josé [email or web address] PCP - General Internal Medicine 06/17/19 Jayden Rice MD [email or web address] Urology 12/26/23 Jean Mccarty MD [address] [place] [phone] [email or web address] Urology 12/29/23 Andrew Mcmahan MD [address] [place] [address] [email or web address] Medical Oncology 12/29/23 documented as of this encounter Additional Source Comments The information contained in this document represents components of the legal health record. It is not the complete legal health record.[facility]
--- OUTSIDE RECORDS SUMMARY | 2025-06-08 12:57 | XMS_ITS | Encounter Summary ---
Author Organization [facility] Address [address] [facility] [address] [place] [address] Phone Care Team Providers Care Supervisor Ordnance Truck Installation Name Role Phone Steve Price DO Primary Care Provider [phone] Jayden Rice MD Unavailable [phone] Jean Mccarty MD Unavailable [phone] Andrew Mcmahan MD Unavailable Encounter Details Date Type Department Care Team (Late st Contact Info) Description 04/11/2023 Transcribe Orders [address] [address] Steve Price, DO [address] [place] [address] josé Type 2 diabetes mellitus without complication, [...] Info) Description 11/22/2025 10:00 AM EDT Appointment [address] [address] Jean Mccarty MD [address] [place] [phone] [email or web address] 11/24/2025 9:20 AM EDT Telemedicine [facility] Urology [address] [place] [address] Shandra Brewster PA-C [address] [place] [phone] [email or web address] documented as of this encounter Visit Diagnoses Diagnosis Type 2 diabetes mellitus without complication, without long-term current use of insulin- Primary documented in this encounter Care Teams Supervisor Ordnance Truck Installation Relationship Specialty Start Date End Date Steve Price DO josé [email or web address] PCP - General Internal Medicine 06/17/19 Jayden Rice MD Urology 12/26/23 Jean Mccarty MD [address] [place] [phone] [email or web address] Urology 12/29/23 Andrew Mcmahan MD [address] [place] [address] [email or web address] Medical Oncology 12/29/23 documented as of this encounter Additional Source Comments The information contained in this document represents components of the legal health record. It is not the complete legal health record.[facility]
--- OUTSIDE RECORDS SUMMARY | 2025-06-08 12:57 | XMS_ITS | Encounter Summary ---
Author Organization [facility] Address [address] [place] [address] Phone Care Team Providers Care Straw Hat Brusher Name Role Phone Steve Price Primary Care Provider [phone] Jayden Rice MD Unavailable [phone] Jean Mccarty MD Unavailable [phone] Andrew Mcmahan MD Unavailable Encounter Details Date Type Department Care Team (Late st Contact Info) Description 11/25/2023 Procedure Pass [facility] [address] [place] [address] Social History Tobacco Use Types Packs/Day Years [...] Info) Description 11/22/2025 10:00 AM EDT Appointment [facility] [address] [place] [address] Jean Mccarty MD [address] [place] [phone] [email or web address] 11/24/2025 9:20 AM EDT Telemedicine [facility] Urology [facility] [address] [address] Shandra Brewster PA-C [address] [place] [phone] [email or web address] documented as of this encounter Visit Diagnoses Not on filedocumented in this encounter Care Teams Straw Hat Brusher Relationship Specialty Start Date End Date Steve Price DO josé PCP - General Internal Medicine 06/17/19 Jayden Rice MD Urology 12/26/23 Jean Mccarty MD [address] [place] [phone] [email or web address] 12/29/23 Andrew Mcmahan MD [address] [place] [phone] [email or web address] Medical Oncology 12/29/23 documented as of this encounter Additional Source Comments The information contained in this document represents components of the legal health record. It is not the complete legal health record.[facility]
--- OUTSIDE RECORDS SUMMARY | 2025-06-08 12:57 | XMS_ITS | Encounter Summary ---
Author Organization [facility] Address formerly [facility] [address] [place] [address] Phone Care Team Providers Care Nut Tapper Name Role Phone Steve Price Primary Care Provider [phone] Jayden Rice MD Unavailable [phone] Jean Mccarty MD Unavailable [phone] Andrew Mcmahan MD Unavailable [phone] Encounter Details Date Type Department Care Team (Late st Contact Info) Description 06/08/2024 Procedure Pass [facility] Imaging, [place] [address] [place] [address] Social History Tobacco Use Types Packs/Day Years [...] high school, GED, job training, learning the Latvian language, technical skills, or developing parenting skills)? [...] Info) Description 11/22/2025 10:00 AM EDT Appointment [address] [address] Jean Mccarty MD [address] [place] [address] [email or web address] 11/24/2025 9:20 AM EDT Telemedicine [facility] Urology [address]S [address] [place] [address] Shandra Brewster PA-C [address] [place] [address] [email or web address] documented as of this encounter Visit Diagnoses Not on filedocumented in this encounter Care Teams Nut Tapper Relationship Specialty Start Date End Date Steve Price DO [email or web address] PCP - General Internal Medicine 06/17/19 Jayden Rice MD [email or web address] Urology 12/26/23 Jean Mccarty MD [address] [place] [phone] [email or web address] Urology 12/29/23 Andrew Mcmahan MD [address] [place] [address] [email or web address] Medical Oncology 12/29/23 documented as of this encounter Additional Source Comments The information contained in this document represents components of the legal health record. It is not the complete legal health record.[facility]
--- OUTSIDE RECORDS SUMMARY | 2025-06-08 12:58 | XMS_ITS | Encounter Summary ---
Author Organization [facility] Address [address] [place] [address] Phone Care Team Providers Care Integrity Director Name Role Phone Reza Osullivan MD Unavailable Steve Price DO Primary Care Provider [phone] Jayden Rice MD Unavailable [phone] Jean Mccarty MD Unavailable [phone] Andrew Mcmahan MD Unavailable [phone] Encounter Details Date Type Department Care Team (Late st Contact Info) Description 06/17/2019 Transcribe Orders [address] [address] Steve Price DO [address] [place] [address] Type 2 diabetes mellitus without complication, unspecified whether senior devops engineer insulin use (Primary Dx) Social History Tobacco [...] Info) Description 11/22/2025 10:00 AM EDT Appointment [facility], [facility] [place] - [address] [address] Jean Mccarty MD [address] [place] [address] [email or web address] 11/24/2025 9:20 AM EDT Telemedicine [facility] Urology [address] [address] Shandra Brewster PA-C [address] [place] [phone] [email or web address] documented as of this encounter Results * Microalbumin/creatinine ratio, random urine (06/17/2019 9:18 AM EST) URINE MICROALBUMIN <1.2 0 - 2.3 mg/dL [facility] URINE CREATININE 41 mg/dL [facility] MICROALB/CRE RATIO NOT CALCULATED 0 - 20 mg/g Cre [facility] Comment:due to Microalbumin <1.2 Urine (Urine) 06/17/2019 9:1 8 AM EST 06/17/2019 9:45 AM EST us Steve A Bigda DO LAB URINE ORDERABLES Final Resul t [address] [address] * (ABNORMAL) Lipid panel (06/17/2019 9:18 AM EST) HDL 62 mg/dL [facility] Comment: Interpretation <40 mg/dL: Low HDL cholesterol (major risk factor for CHD) Greater than or equal to 60 mg/dL: High HDL cholesterol ( negative risk factor for CHD) HDL - cholesterol is affected by a number of factors, e.g. smoking, excerise, hormones, sex and age. CHOLESTEROL 185 0 - 240 mg/dL [facility] TRIGLYCERIDES 99 30 - 160 mg/dL [facility] LDL 103 50 - 129 mg/dL [facility] Comment: LDL levels in terms of risk for coronary heart disease: <100 mg/dL: Optimal 100-129 mg/dL: Near or above optimal 130-159 mg/dL: Borderline high 160-189 mg/dL: High >190 mg/dL: Very High CARDIAC RISK RATIO 3.0(L) 3.3 - 4.4 [facility] Blood 06/17/2019 9:18 AM EST 06/17/2019 9:45 AM EST us Steve A Bigda DO LAB BLOOD BKR ORDERABLES Final R esult [facility] [address] [place] [address] * (ABNORMAL) Comprehensive metabolic panel (06/17/2019 9:18 AM EST) SODIUM 143 133 - 146 mmol/L [facility] POTASSIUM 4.7 3.3 - 5.1 mmol/L [facility] CHLORIDE 102 96 - 108 mmol/L [facility] CO2 30 21 - 35 mmol/L [facility] BUN 15 6 - 19 mg/dL [facility] CREATININE <0.50(L) 0.5 - 1.5 mg/dL [facility] GLUCOSE 105(H) 70 - 99 mg/dL [facility] ALBUMIN 4.2 3.9 - 4.8 g/dL [facility] TOTAL PROTEIN 7.8 6.5 - 8.0 g/dL [facility] CALCIUM 9.7 8.4 - 10.3 mg/dL [facility] ALKALINE PHOSPHATASE 122(H) 39 - 117 U/L [facility] TOTAL BILIRUBIN 0.3 0.0 - 1.2 mg/dL [facility] AST 18 0 - 37 U/L [facility] ALT 21 0 - 40 U/L [facility] GLOBULIN 3.6 1 - 4.8 g/dL [facility] EGFR Not Done >59 mL/min/1.7 3m2 [facility] ANION GAP 16 10 - 20 mmol/L [facility] Blood 06/17/2019 9:18 AM EST 06/17/2019 9:45 AM EST us Steve Price DO LAB BLOOD BKR ORDERABLES Final R esult [address] [address] documented in this encounter Visit Diagnoses Diagnosis Type 2 diabetes mellitus without complication, unspecified whether penitentiary insulin use- Primary documented in this encounter Care Teams Integrity Director Relationship Specialty Start Date End Date Steve Price DO [address] [place] [address], [address] [place] [address] [email or web address] PCP - General Internal Medicine 06/17/19 Reza Osullivan MD [address] [place] [address], [facility] [address] [place] [address] [email or web address] Historical LMR Provider 05/01/17 07/21/21 Jayden Rice MD [address] [place] [address], [address] [place] [address] Urology 12/26/23 Jean Mccarty MD [address] [place] [phone] [email or web address] Urology 12/29/23 Andrew Mcmahan MD [address] [place] [address] [email or web address] Medical Oncology 12/29/23 documented as of this encounter Additional Source Comments The information contained in this document represents components of the legal health record. It is not the complete legal health record.[facility]
--- OUTSIDE RECORDS SUMMARY | 2025-06-08 12:58 | XMS_ITS | Encounter Summary ---
Author Organization [facility] Address [facility] [employer] [facility] [address] [place] [address] Phone Care Team Providers Care Linter Tender Name Role Phone Steve Price Primary Care Provider [phone] Jayden Rice MD Unavailable [phone] Jean Mccarty MD Unavailable [phone] Andrew Mcmahan MD Unavailable [phone] Encounter Details Date Type Department Care Team (Late st Contact Info) Description 12/03/2024 Procedure Pass [facility] CT Imaging, [place] [address] [place] [address] Social History Tobacco Use Types Packs/Day Years [...] high school, GED, job training, learning the Haitian language, technical skills, or developing parenting skills)? [...] Info) Description 11/22/2025 10:00 AM EDT Appointment [address] [address] Jean Mccarty MD [address] [place] [phone] [email or web address] 11/24/2025 9:20 AM EDT Telemedicine [facility] Urology [address]S [address] [place] [address] Shandra Brewster PA-C [address] [place] [address] [email or web address] documented as of this encounter Visit Diagnoses Not on filedocumented in this encounter Care Teams Linter Tender Relationship Specialty Start Date End Date Steve Price DO [email or web address] PCP - General Internal Medicine 06/17/19 Jayden Rice MD [email or web address] Urology 12/26/23 Jean Mccarty MD [address] [place] [phone] [email or web address] Urology 12/29/23 Andrew Mcmahan MD [address] [place] [phone] [email or web address] Medical Oncology 12/29/23 documented as of this encounter Additional Source Comments The information contained in this document represents components of the legal health record. It is not the complete legal health record.[facility]
[2025-06-08 13:38] LABS: MANUAL DIFF FLAG NO
[2025-06-08 13:51] LABS: Hematocrit 41.3 % (37.0-47.0); Hemoglobin 13.6 g/dl (12.0-16.0); Imm Gran Abs Auto 0.02 X10*3/uL (0.00-0.03); Imm Gran Pct Auto 0.3 % (0.0-0.4); Lymphocytes Absolute Auto 1.6 X10*3/uL (1.2-4.9); Mean Corpuscular HGB Conc 32.9 g/dl (31.0-35.0); Mean Corpuscular Hemoglobin 27.9 pg (27.0-33.0); Mean Corpuscular Volume 84.8 fL (80.0-98.0); NRBC Abs Auto 0.000 X10*3/uL (0.0-0.012); NRBC Pct Auto 0.0 /100WBC (0.0-0.2); Platelet Count 300 X10*3/uL (160-400); Red Blood Count 4.87 X10*6/uL (4.20-5.50); White Blood Count 6.9 X10*3/uL (4.8-10.8)
[2025-06-08 14:44] LABS: Alanine Aminotransferase 24 U/L (0-31); Albumin Level 4.3 g/dL (3.5-5.0); Alkaline Phosphatase 101 U/L (39-117); Anion Gap 12 (12-20); Aspartate Amino Transferase 25 U/L (5-31); Blood Urea Nitrogen 15 mg/dL (9-16); Calcium 9.6 mg/dL (8.4-10.2); Carbon Dioxide 29 mmol/L (22-29); Chloride 105 mmol/L (96-108); Estimated Glomerular Filt Rate > 60; Potassium 3.9 mmol/L (3.3-5.1); Sodium 142 mmol/L (135-145); Total Protein 7.2 g/dL (6.5-8.0)
== END 2025-06-08 10:43 | disposition home or self-care (01) ==
LOC: HO.MANLDS 10:42
PROVIDERS: Visit Provider Internal Medicine
DX: Z13.29 Encounter for screening for other suspected endocrine disorder (principal); N95.0 Postmenopausal bleeding
CPT/HCPCS: 36415; 80053; 84443; 85025